=== PATIENT | female | born 1950 | race Caucasian/White ===

== ENCOUNTER 2016-10-18 08:47 | Inpatient (IN) | payer OTHER ==
[2016-09-23 11:37] VITALS: BMI 39.0
--- NOTE | 2016-09-23 12:08 | PAT Medication Instructions ---
Service Date Sep 23, 2016. Current Home Medication List Aspirin (Aspirin Ec), 81 MG PO QAM Calcium Carbonate-Vitamin D (Calcium + D), 1 TAB PO QAM Celecoxib (CeleBREX), 200 MG PO QAM Cholecalciferol (Vitamin D3), 5,000 UNITS PO QAM Esomeprazole Magnesium (Nexium), 40 MG PO QAM Oxybutynin Chloride (Ditropan), 5 MG PO QAM Pravastatin (Pravachol ), 40 MG PO QAM Tramadol (Ultram), 50-100 MG PO BID [Lisinopril Hctz], 1 TAB PO QAM Medication Instructions For Your Scheduled Surgery - Check with surgeon for instructions: Celecoxib (CeleBREX), 200 MG PO QAM - Hold the following medications the morning of surgery: [Lisinopril Hctz], 1 TAB PO QAM Oxybutynin Chloride (Ditropan), 5 MG PO QAM Cholecalciferol (Vitamin D3), 5,000 UNITS PO QAM Calcium Carbonate-Vitamin D (Calcium + D), 1 TAB PO QAM - Take the following medications the morning of surgery with a sip of water: Pravastatin (Pravachol ), 40 MG PO QAM Tramadol (Ultram), 50-100 MG PO BID (okay to continue up to 4 hours prior to surgery if needed) Esomeprazole Magnesium (Nexium), 40 MG PO QAM Aspirin (Aspirin Ec), 81 MG PO QAM - Take the following medications as scheduled the night before surgery: Tramadol (Ultram), 50-100 MG PO BID If you have any questions please call us at [phone] or [phone] or [phone]
--- NOTE | 2016-09-23 12:55 | DIAGNOSTIC IMAGING REPORT ---
CHEST PREADMISSION(PA/LAT) CLINICAL HISTORY: 65 years-old Female presenting with preoperative assessment. TECHNIQUE: PA and lateral views of the chest were obtained. COMPARISON: None. FINDINGS: Cardiomediastinal silhouette normal. Lungs and pleural spaces clear. Osseous structures normal. Surgical clips noted in the epigastrium. IMPRESSION: 1. No acute cardiopulmonary disease. Electronically signed by: Kiran Dominguez M.D. 09/23/2016 12:54 PM Dictated Date/Time: 09/23/2016 12:54 PM
[2016-09-23 12:57] LABS: BASO % 0.7 %; BASO ABS # 0.04 K/uL (0-0.2); COMPLETE YES; IG% 0.2 %; LYMPH % 32.7 %; MEAN CELL VOLUME 84.1 fL (80-100); MEAN CORPUSCULAR HEMOGLOBIN 28.3 pg (25-34); MEAN CORPUSCULAR HGB CONC 33.7 g/dl (32-36); MEAN PLATELET VOLUME 10.3 fL (7.4-10.4); MONO % 7.4 %; PLATELET COUNT 197 K/uL (130-400); RED BLOOD COUNT 4.52 M/uL (4.2-5.4); WHITE BLOOD COUNT 5.81 K/uL (4.8-10.8)
[2016-09-23 12:58] LABS: URINE APPEARANCE CLEAR (CLEAR); URINE BILIRUBIN NEG (NEG); URINE COLOR YELLOW; URINE NITRITE NEG (NEG); URINE SPECIFIC GRAVITY 1.015 (1.000-1.030); UROBILINOGEN NEG (NEG)
[2016-09-23 13:05] LABS: PARTIAL THROMBOPLASTIN RATIO 1.3; PROTHROMBIN TIME (PATIENT) 10.4 SECONDS (9.0-12.0)
[2016-09-23 13:08] LABS: MANUAL MICROSCOPIC REQUIRED? NO; REVIEW REQ? NO
[2016-09-23 13:24] LABS: ESTIMATED AVERAGE GLUCOSE 126 mg/dl; HA1C FLAG Normal (Normal)
[2016-09-23 14:34] LABS: BUN/CREATININE RATIO 19.9 (10-20); CALCIUM 8.9 mg/dl (8.5-10.1); CREATININE 0.95 mg/dl (0.60-1.20); POTASSIUM 3.7 mmol/L (3.5-5.1)
--- NOTE | 2016-10-16 21:58 | HISTORY & PHYSICAL EXAMINATION ---
DATE OF ADMISSION: 10/18/2016 SUBJECTIVE CHIEF COMPLAINT: Right knee pain. HISTORY OF PRESENT ILLNESS: The patient is a 65-year-old female that comes to the office complaining of right knee pain. She states that the pain occurs constantly and is described as aching, throbbing and sometimes sharp. The pain affects her activities of daily living. She has tried cortisone injections, nonsteroidal anti-inflammatories and physical therapy with no relief. She would like to proceed with a right total knee arthroplasty. PAST MEDICAL HISTORY: Significant for shortness of breath walking up and down hills, rheumatoid arthritis and GERD. PAST SURGICAL HISTORY: Hysterectomy, appendectomy, tonsillectomy, and cholecystectomy. SOCIAL HISTORY: She denies alcohol use. She smokes a pack a day for the last 40 years. She denies IV or illegal drug use. She lives in a 2-aly house. She is currently retired. FAMILY HISTORY: Mom and dad had a history of coronary artery disease. ALLERGIES: She has no known drug allergies. MEDICATIONS: Tramadol 50 mg 1 tablet as needed for pain, lisinopril/hydrochlorothiazide 10/12.5 mg 1 tablet daily, esomeprazole 20 mg 2 capsules daily, Ditropan 5 mg 1 tablet daily, Celebrex 200 mg 1 capsule daily, pravastatin 40 mg 1 tablet daily, Caltrate 600 1 tablet daily, vitamin D3 5000 units 1 capsule daily, and aspirin 81 mg 1 tablet daily. REVIEW OF SYSTEMS: She denies headaches, fevers, chills, double vision, blurry vision, sore throat, cough, chest pain, nausea, vomiting, diarrhea, constipation, numbness or tingling, tired, urinary difficulties, thoughts to harm herself or harm others or depression. She is positive for joint pain, joint stiffness of the right knee. OBJECTIVE: GENERAL APPEARANCE: The patient is a 65-year-old female sitting in no acute distress. She is well dressed, well nourished. She is awake, alert and oriented x3. VITAL SIGNS: She is 5 feet 5 inches tall, 237 pounds, blood pressure 98/58. HEENT: Normocephalic, atraumatic. Extraocular movements are intact. Mucosa was moist. No septal deviation. NECK: Supple, no lymphadenopathy, no JVD, no thyromegaly. HEART: Systolic murmur is appreciated in the aortic position. LUNGS: Clear to auscultation; however, they are distant ABDOMEN: Soft, nontender, nondistended. Normal bowel sounds. No hepatosplenomegaly. EXTREMITIES: Paying particular attention to the right knee, she is able to actively extend to 0 degrees, flex to 90 degrees. She has medial joint line tenderness. Ligaments are intact. NEUROLOGIC: Cranial nerves II-XII are intact. Pulses were compared bilaterally and were equal. IMPRESSION: Primary osteoarthritis of the right knee. PLAN: The patient is scheduled for a right total knee arthroplasty. She has tried cortisone injections, nonsteroidal anti-inflammatories and physical therapy with no relief. This affects her activities of daily living and she would like to proceed with a right total knee arthroplasty. Risks and benefits were discussed with the patient and included but not limited to infection, DVT, pain, stiffness, need for revision surgery, damage to blood vessels, damage to nerves, PE, and anesthesia risks were all discussed with the patient and she wishes to proceed. All questions were answered to her satisfaction. DVT prophylaxis will be aspirin 81 mg b.i.d. for 30 days. DISCHARGE: She would like to go home with home health. SYL
[2016-10-18] VITALS (8 sets, daily range): BP systolic 93–138; BP diastolic 55–74; PULSE 62–87; TEMP 36.5–36.8; O2SAT 92–100; Ht 165.1 cm; Wt 107.5 kg
[~2016-10-18] VITALS: Ht 165.1 cm; Wt 107.5 kg
[2016-10-18] MEDS: TRANEXAMIC ACID INJ 1,000 MG in SODIUM CHLORIDE 0.9% 100ML 100 ML IV SCH ×2 (06:30→10:14)
[~2016-10-18 08:47] MED LIST: ACETAMINOPHEN 500 MG TAB PO SCH; ASPI81TA28 PO; ATROPINE SULFATE 0.1 MG/ML 5ML SYR IV PRN; BUPIVACAINE 0.25% 30 ML VIAL ONE; BUPIVACAINE 0.5 % 5 MG/1 ML PF 10ML VIAL ONE; CALC600T9 PO; CEFAZOLIN 2000 MG/60 ML D5W 60 ML IV SCH; CHOL1000 PO; CLB/200 PO; CeleBREX 200 MG CAP PO SCH; DEXAMETHASONE 4 MG TAB PO SCH; EpHEDrine SULFATE INJ 50 MG/ML AMP IV PRN; FAMOTIDINE 20 MG TAB PO SCH; FENTANYL CITRATE INJ 50 MCG/1 ML 2 ML VIAL IV PRN; GABAPENTIN 300 MG CAP PO SCH; LACTATED RINGER'S 1000ML 1,000 ML IV SCH; LACTATED RINGER'S 1000ML 500 ML IV ONE; LACTATED RINGER'S 1000ML IV SCH; LISINOPRIL HCTZ PO; METOCLOPRAMIDE HCL 10 MG TAB PO SCH; NXM/40 PO; ONDANSETRON INJ 2 MG/ML 2 ML VIAL IV PRN; OXYB5TAB74 PO; PRAV20TA PO; ROPIVACAINE 5MG/ML 30 ML 150 MG, BUPIVACAINE/EPINEPHR 0.5% MPF 30 ML, KETOROLAC TROMETH... INFIL SCH; TRAM-10 PO; TRANEXAMIC ACID INJ 1,000 MG in SODIUM CHLORIDE 0.9% 100ML 100 ML IV SCH
[2016-10-18] MEDS ORDERED: MIDAZOLAM HCL 1 MG/ML 2ML VIAL ONE ×2 (09:04)
--- NOTE | 2016-10-18 09:18 | History & Physical Bridge Note ---
H&P Re-Evaluation Bridge Note: I have examined the patient, reviewed the History & Physical and in the interval since the performance of the History & Physical I have noted the following changes of clinical significance: No changes noted
[2016-10-18] MEDS ORDERED: POVIDONE-IODINE OP SOLN 30 ML BTL ONE (10:16)
[2016-10-18] MEDS ORDERED: ORTHO JOINT ANESTHETIC ONE (10:16)
[2016-10-18] MEDS ORDERED: BACITRACIN 50000 UNIT VIAL ONE (10:17)
[2016-10-18] MEDS ORDERED: PHENYLEPHRINE 100MCG/ML 5ML SYR ONE (11:36)
[2016-10-18] MEDS ORDERED: EpHEDrine SULFATE 50MG/5ML SYR ONE (11:36)
[2016-10-18] MEDS ORDERED: FENTANYL CITRATE INJ 50 MCG/1 ML 2 ML VIAL ONE (12:02)
--- NOTE | 2016-10-18 12:15 | [facility] Operative Report ---
Operative Report Operative Date Oct 18, 2016. Pre-Operative Diagnosis Primary osteoarthritis of the right knee. Post-Operative Diagnosis same Procedure(s) Performed Right total knee arthroplasty Surgeon Dr Winters Superintendent Drilling And Production Surgeon(s) Sai REESE Estimated Blood Loss 75 cc Findings As above Specimens A. Right knee- Bone and tissue Drains none Anesthesia spinal plus adductor canal block Complication(s) None Disposition Recovery Room / PACU Indications 65-year-old female long-standing degenerative joint disease right knee. She is [id number]. She still conservative measures including injection and anti- inflammatories and rehabilitation. She wished to proceed with right total knee arthroplasty. Description of Procedure Risks benefits and alternatives of surgery including but not limited to infection, DVT , pain, stiffness, need for revision surgery , damage to blood vessels , damage to nerves or risks of anesthesia were discussed with the patient and they wished to proceed. The patient was identified in the laterality was confirmed and marked. They received a preoperative antibiotic is also a spinal anesthetic and a adductor canal block. A well-padded tourniquet was applied and then the limb was prepped and draped in standard manner with ChloraPrep. The tourniquet was only used during the cementing portion of the procedure. I made a standard anterior incision. I sharply incised the skin then utilized Bovie electrocautery as well as the aqua mantis to achieve hemostasis. I made a medial parapatellar arthrotomy immobilized the patella laterally. I then excised the anterior horns of the medial and lateral meniscus as well as the infrapatellar fat pad. I elevated a portion of the MCL off of the tibia. I then pinned into place a patient-matched distal femoral cutting guide and made my distal femoral resection. I then pinned into place a size the 5 in 1 cutting guide. I made my anterior, posterior and chamfer cuts. I then excised the cruciates and the remaining portions of the menisci. I then pinned into place a patient- matched tibial cutting guide and made my tibial resection. I then pinned into place the patient matched tibial cutting guide and used a alignment sujatha to confirm rotation. I then cut for the post. Utilizing a lamina optimization consultant and I then removed posterior osteophytes off the femur. I then placed a trial femur into position and cut for the trochlear component. I then sequentially trialed the polyethylene until there was good soft tissue balancing and range of motion. I then prepared the patella with a freehand cut utilizing sagittal saw. I sized and drilled for the patella. There was good tracking to the patella no lateral release was needed. All the trial components were removed. The deep tissues were anesthetized with and ortho mix solution. Then with Simplex HV with gentamicin cement I cemented my definitive components. Definitive components, Fitzpatrick and Nephew Dominguez 2: Femur 5 Tibia 3 Poly 10 Patella 29 oval A betadine soak was performed. The arthrotomy was closed with interrupted #1 Vicryl suture subcutaneous tissue was closed with interrupted 2-0 Vicryl suture. The skin was closed with nic. A Prevena wound VAC was placed. A sterile dressing was applied. All needle and sponge counts were correct at the end of the procedure patient was transferred to the PACU in stable condition without apparent complication. The PA-C was necessary for assistance with procedure for assistance in positioning, prepping, draping, retraction and closure. I attest to the content of the Intraoperative Record and any orders documented therein. Any exceptions are noted below.
[2016-10-18] MEDS ORDERED: PROPOFOL IV EMULSION 10 MG/ML 20 ML VIAL IV ONE (12:59)
[2016-10-18] MEDS ORDERED: MoRPHine SULFATE 2 MG/ML CARP IV PRN (13:15)
[2016-10-18] MEDS ORDERED: BISACODYL 10 MG SUPP PR PRN (13:15)
[2016-10-18] MEDS ORDERED: SOD PHOSPHATE/SOD BIPHOSPHATE ENEMA 132 ML BTL PR PRN (13:15)
[2016-10-18] MEDS ORDERED: ONDANSETRON INJ 2 MG/ML 2 ML VIAL IV PRN (13:15)
[2016-10-18] MEDS ORDERED: ZOLPIDEM TARTRATE 5 MG TAB PO PRN (13:15)
[2016-10-18] MEDS ORDERED: MAGNESIUM HYDROXIDE SUSP 30 ML UDC PO PRN (13:15)
--- NOTE | 2016-10-18 13:30 | Anesthesiology Progress Note ---
Anesthesia Post Op Note Date & Time Oct 18, 2016 at 13:30 Vital Signs Pain Intensity: 0 Vital Signs Past 12 Hours Date Time Temp Pulse Resp B/P (MAP) Pulse Ox O2 Delivery O2 Flow Rate FiO2 10/18/16 13:20 74 16 103/53 100 Nasal Cannula 2 10/18/16 13:10 78 16 100/53 100 Nasal Cannula 2 10/18/16 13:02 36.4 87 16 106/64 100 Nasal Cannula 2 10/18/16 09:09 36.5 73 20 138/74 99 Room Air Notes Mental Status: alert / awake / arousable, participated in evaluation Pt Amnestic to Procedure: Yes Nausea / Vomiting: adequately controlled Pain: adequately controlled Airway Patency, RR, SpO2: stable & adequate BP & HR: stable & adequate Hydration State: stable & adequate Neuraxial Anesthesia: was administered, sensory block is resolving Anesthetic Complications: no major complications apparent
--- NOTE | 2016-10-18 13:53 | DIAGNOSTIC IMAGING REPORT ---
RIGHT KNEE 2 VIEWS History: Right total knee arthroplasty. Degenerative arthritis. Postop. FINDINGS: The patient is status post a right total knee arthroplasty. The hardware is intact. No fracture or dislocation. Skin nic are in place. IMPRESSION: Right total knee arthroplasty. No evidence for hardware complication. Electronically signed by: Justin Silverman M.D. 10/18/2016 1:52 PM Dictated Date/Time: 10/18/2016 1:52 PM
[2016-10-18] MEDS: D5W AND 1/2NSS + 20MEQ KCL 1,000 ML IV SCH ×2 (16:10→23:35)
[2016-10-18] MEDS: FERROUS GLUCONATE 324 MG TAB PO SCH (18:32)
[2016-10-18] MEDS: CEFAZOLIN IV 2,000 MG in DEXTROSE 5% 50ML 50 ML IV SCH (18:32)
[2016-10-18] MEDS: DOCUSATE SODIUM 100 MG CAP PO SCH (21:00)
[2016-10-18] MEDS: SENNA 8.6 MG TAB PO SCH (21:00)
[2016-10-18] MEDS: OXYCODONE HCL 10 MG TABCR (OXYCONTIN) PO SCH (21:30)
[2016-10-18] MEDS: CeleBREX 200 MG CAP PO SCH (21:31)
[2016-10-18] MEDS: ACETAMINOPHEN 500 MG TAB PO SCH (21:31)
[2016-10-18] MEDS: ASPIRIN 81 MG ECTAB PO SCH (21:31)
[2016-10-19] MEDS: CEFAZOLIN IV 2,000 MG in DEXTROSE 5% 50ML 50 ML IV SCH (01:37)
[2016-10-19 03:19] VITALS: BP 90/56; PULSE 65; TEMP 36.7; O2SAT 97
[2016-10-19] MEDS: ACETAMINOPHEN 500 MG TAB PO SCH ×3 (05:20→22:24)
[2016-10-19 05:37] LABS: HEMATOCRIT 35.9 % (37-47); MEAN CELL VOLUME 83.9 fL (80-100); MEAN CORPUSCULAR HEMOGLOBIN 27.6 pg (25-34); MEAN CORPUSCULAR HGB CONC 32.9 g/dl (32-36); MEAN PLATELET VOLUME 10.4 fL (7.4-10.4); PLATELET COUNT 208 K/uL (130-400); RED BLOOD COUNT 4.28 M/uL (4.2-5.4); WHITE BLOOD COUNT 16.32 K/uL (4.8-10.8)
[2016-10-19 05:45] LABS: PROTHROMBIN TIME (PATIENT) 10.2 SECONDS (9.0-12.0)
[2016-10-19 06:08] LABS: CALCIUM 8.8 mg/dl (8.5-10.1); CREATININE 1.1 mg/dl (0.60-1.20); POTASSIUM 4.2 mmol/L (3.5-5.1)
--- NOTE | 2016-10-19 07:51 | Orthopedic Progress Note ---
Orthopedic Progress Note Date of Service Oct 19, 2016. Subjective Post OP Day: 1 Reports: feeling well, Denies: complaints Objective calves soft nontender, N/V intact, dressing C/D/I, A&O x3, toes mobile Date Time Temp Pulse Resp B/P (MAP) Pulse Ox O2 Delivery O2 Flow Rate FiO2 10/19/16 03:19 36.7 65 16 90/56 (67) 97 Room Air 10/18/16 23:45 Room Air 10/18/16 23:20 36.5 62 16 93/65 (74) 92 Room Air 10/18/16 16:57 36.8 69 18 98 Nasal Cannula 2.0 10/18/16 16:30 98 Nasal Cannula 2.0 10/18/16 16:15 36.7 76 18 107/70 (82) 98 2.0 10/18/16 15:25 87 18 110/55 (73) 10/18/16 14:30 73 18 105/70 (82) 10/18/16 14:00 36.6 73 16 121/72 (88) 100 Nasal Cannula 2.0 10/18/16 14:00 100 Nasal Cannula 2.0 10/18/16 14:00 100 Nasal Cannula 2.0 10/18/16 13:30 36.3 80 16 114/65 100 Nasal Cannula 2 10/18/16 13:20 74 16 103/53 100 Nasal Cannula 2 10/18/16 13:10 78 16 100/53 100 Nasal Cannula 2 10/18/16 13:02 36.4 87 16 106/64 100 Nasal Cannula 2 10/18/16 09:09 36.5 73 20 138/74 99 Room Air Laboratory Results 24 Hours: Test 10/19/16 05:23 Hematocrit 35.9 % Hemoglobin 11.8 g/dL Prothromb Time International Ratio 1.0 Prothrombin Time 10.2 SECONDS Assessment & Plan Assessment: POD 1 s/p Right TKA Plan: PT/OT Follow drainage from Prevena Unsure of what she would like to do for out of hospital PT. Will decide later today after PT Inhouse Planning Pain Management: Oxycontin, PO Tylenol, Oxy IR DVT Prophylaxis: TEDs, SCDs, ASA Discharge Planning Discharge Planning: uncertain Pain Management: Oxycontin, PO Tylenol, Oxy IR DVT Prophylaxis: TEDs, ASA Therapy: Physical Therapy
[2016-10-19 08:04] VITALS: BP 104/63; PULSE 65; TEMP 36.7; O2SAT 98
[2016-10-19] MEDS: DOCUSATE SODIUM 100 MG CAP PO SCH ×2 (08:36→22:22)
[2016-10-19] MEDS: MULTIVITAMIN TAB PO SCH (08:37)
[2016-10-19] MEDS: ASPIRIN 81 MG ECTAB PO SCH ×2 (08:37→22:22)
[2016-10-19] MEDS: LISINOPRIL/HCTZ 10/12.5MG TAB PO SCH (08:37)
[2016-10-19] MEDS: OXYBUTYNIN CHLORIDE 5 MG TAB PO SCH (08:37)
[2016-10-19] MEDS: CeleBREX 200 MG CAP PO SCH ×2 (08:37→22:22)
[2016-10-19] MEDS: PRAVASTATIN SOD 20 MG TAB PO SCH (08:38)
[2016-10-19] MEDS: PANTOprazole SOD 40 MG TAB PO SCH (08:38)
[2016-10-19] MEDS: FERROUS GLUCONATE 324 MG TAB PO SCH ×3 (08:38→19:29)
[2016-10-19] MEDS: CALCIUM 600MG + VIT D 400 IU TAB PO SCH (08:38)
--- NOTE | 2016-10-19 08:40 | Anesthesiology Progress Note ---
Anesthesia Post Op Note Date & Time Oct 19, 2016 at 08:40 Vital Signs Vital Signs Past 12 Hours Date Time Temp Pulse Resp B/P (MAP) Pulse Ox O2 Delivery O2 Flow Rate FiO2 10/19/16 08:04 36.7 65 18 104/63 (77) 98 Room Air 10/19/16 07:15 Room Air 10/19/16 03:19 36.7 65 16 90/56 (67) 97 Room Air 10/18/16 23:45 Room Air 10/18/16 23:20 36.5 62 16 93/65 (74) 92 Room Air Notes Mental Status: alert / awake / arousable, participated in evaluation Pt Amnestic to Procedure: Yes Nausea / Vomiting: adequately controlled Pain: adequately controlled Airway Patency, RR, SpO2: stable & adequate BP & HR: stable & adequate Hydration State: stable & adequate Neuraxial Anesthesia: was administered, sensory block resolved Anesthetic Complications: no major complications apparent
[2016-10-19] MEDS: OXYCODONE HCL IR 5 MG TAB (IMMEDIATE RELEASE) PO PRN ×3 (08:44→23:32)
[2016-10-19] MEDS: OXYCODONE HCL 10 MG TABCR (OXYCONTIN) PO SCH ×2 (08:44→22:18)
[2016-10-19] MEDS ORDERED: PANTOprazole SOD 40 MG TAB PO SCH (09:00)
[2016-10-19] MEDS: D5W AND 1/2NSS + 20MEQ KCL 1,000 ML IV SCH (09:36)
[2016-10-19 15:46] VITALS: BP 94/52; PULSE 85; TEMP 37; O2SAT 94
[2016-10-19] MEDS: SENNA 8.6 MG TAB PO SCH (21:00)
[2016-10-19 23:22] VITALS: BP 143/84; PULSE 77; TEMP 37; O2SAT 93
[2016-10-19] MEDS: ALUMINUM/MAGNESIUM/SIMETH (MAALOX MAX) 30 ML UDC PO PRN (23:33)
[2016-10-20] MEDS: ACETAMINOPHEN 500 MG TAB PO SCH ×2 (05:47→14:00)
[2016-10-20 06:18] VITALS: BP 108/58; PULSE 76; TEMP 36.9; O2SAT 93
[2016-10-20] MEDS: ALUMINUM/MAGNESIUM/SIMETH (MAALOX MAX) 30 ML UDC PO PRN (07:26)
[2016-10-20] MEDS: OXYCODONE HCL 10 MG TABCR (OXYCONTIN) PO SCH (07:27)
[2016-10-20] MEDS: OXYCODONE HCL IR 5 MG TAB (IMMEDIATE RELEASE) PO PRN ×2 (07:28→14:37)
[2016-10-20] MEDS: OXYBUTYNIN CHLORIDE 5 MG TAB PO SCH (07:28)
[2016-10-20] MEDS: CALCIUM 600MG + VIT D 400 IU TAB PO SCH (07:28)
[2016-10-20] MEDS: FERROUS GLUCONATE 324 MG TAB PO SCH ×2 (07:28→12:30)
[2016-10-20] MEDS: PRAVASTATIN SOD 20 MG TAB PO SCH (07:29)
[2016-10-20] MEDS: MULTIVITAMIN TAB PO SCH (07:29)
[2016-10-20] MEDS: PANTOprazole SOD 40 MG TAB PO SCH (07:29)
[2016-10-20] MEDS: LISINOPRIL/HCTZ 10/12.5MG TAB PO SCH (07:29)
--- NOTE | 2016-10-20 07:34 | Orthopedic Progress Note ---
Orthopedic Progress Note Date of Service Oct 20, 2016. Subjective Post OP Day: 2 Reports: feeling well, pain controlled w PO medications, Denies: complaints, chest pain, SOB, nausea / vomiting, light headedness, calf pain Objective calves soft nontender, N/V intact, capillary refill less than 2 sec., A&O x3, toes mobile Patient had some drainage on her bandage. This was changed today and a new dry dressing was applied. Date Time Temp Pulse Resp B/P (MAP) Pulse Ox O2 Delivery O2 Flow Rate FiO2 10/20/16 06:18 36.9 76 16 108/58 (75) 93 Room Air 10/19/16 23:45 Room Air 10/19/16 23:22 37.0 77 17 143/84 (103) 93 Room Air 10/19/16 17:00 Room Air 10/19/16 15:46 37.0 85 18 94/52 (66) 94 Room Air 10/19/16 08:04 36.7 65 18 104/63 (77) 98 Room Air Assessment & Plan Assessment: POD 2 s/p Right TKA Plan: PT/OT Prevena was discontinued. Dry dressing applied. apply Silverlon before discharge Discharge - OPPT Inhouse Planning Pain Management: Oxycontin, PO Tylenol, Oxy IR DVT Prophylaxis: TEDs, SCDs, ASA Discharge Planning Discharge Planning: uncertain Pain Management: Oxycontin, PO Tylenol, Oxy IR DVT Prophylaxis: TEDs, ASA Therapy: Physical Therapy
--- NOTE | 2016-10-20 08:09 | Discharge Instructions ---
Discharge Instructions Date of Service Oct 20, 2016. Admission Reason for Admission: Right Knee Degenerative Joint Disease Discharge Discharge Diagnosis / Problem: S/P Right TKA Discharge Goals Goal(s): Decrease discomfort, Improve function Activity Recommendations Activity Limitations: per Instructions/Follow-up section . Instructions / Follow-Up Instructions / Follow-Up ACTIVITY RECOMMENDATIONS: SELF CARE INSTRUCTIONS AFTER TOTAL KNEE REPLACEMENT A. You may need to continue a physical therapy program after discharge from the hospital. There are several options available to you. Your doctor will assist you in selecting the best one for you. 1. An out-patient facility 2 to 3 times a week for therapy or home therapy. 2. Continue working on all exercises taught to you in the hospital. Your goals should be to increase bending of your knee to 90 degrees and beyond and to fully straighten your knee. B. You may progress at your own pace from walking with a walker or crutches to a cane; then to no assistive devices. C. Make walking a part of your daily routine. Be up as much as comfortable with rest periods throughout the day. Rest with leg elevation is very important. Use the ice wrap frequently for the first 3-4 weeks. D. There are no restrictions on activities. You may ride in a car, shop, participate in window systems administrator and all social activities. E. Wear the long elastic stockings (RENA hose) 20 hours a day for 2 weeks after surgery. They can be removed several times a day for laundering and for a bath. F. You may shower, no tub baths until cleared by your doctor. SPECIAL CARE INSTRUCTIONS: VERY IMPORTANT TO READ AND REVIEW A. There are a few signs you need to watch for after you are home. Call [facility] if you notice any of the followin. Increased severe knee pain. Some pain is expected especially when you exercise. 2. Increased swelling in your leg or knee; pain or swelling of the calf muscle in either lower leg. 3. Any fluid drainage from the incision. 4. Shortness of breath or chest pain. B. Please call [facility] at if you have any concerns or questions about your operation or recovery. The doctor or his nurse will return your call promptly. C. You must take antibiotics before dental work, bladder, bowel or other surgery. Your doctor will provide you with a permanent care to carry describing this precaution. IMPORTANT: * REMEMBER TO TAKE ASPIRIN, 81 MG, TWICE DAILY FOR 4 WEEKS UNLESS OTHERWISE DIRECTED. THIS IS YOUR BLOOD THINNER. * CALL IF INCREASED PAIN, REDNESS, DRAINAGE OR FEVER GREATER THAT 101. * WEAR RENA HOSE 20 HOURS PER DAY FOR 2 WEEKS. * YOU MAY HAVE A LARGE BAND-AID LIKE DRESSING (SILVERON). THIS WILL REMAIN ON YOUR INCISION FOR 7 DAYS, THEN CAN BE REMOVED. THEN APPLIED DRY DAILY DRESSING CHANGES. IF INCISION IS LEAKING THROUGH DRESSING, CALL THE OFFICE . FOLLOW UP VISIT: If appointment is not already scheduled: Please call [facility] to make a follow-up appointment for 2 weeks after your surgery at . Current Hospital Diet Patient's current hospital diet: Regular Diet Discharge Diet Recommended Diet: Regular Diet Procedures Procedures Performed: Right total knee arthroplasty Pending Studies Studies pending at discharge: no Laboratory Results Hemoglobin A1c Test 09/23/16 12:16 Range/Units Estimated Average Glucose 126 mg/dl Hemoglobin A1c 6.0 H 4.5-5.6 % Medical Emergencies . Who to Call and When: Medical Emergencies: If at any time you feel your situation is an emergency, please call 911 immediately. . Non-Emergent Contact Non-Emergency issues call your: Surgeon Call Non-Emergent contact if: your pain is worsening, wound has increased drainage, wound has increased redness . "Provider Documentation" section prepared by Sai Chance. . VTE Core Measure Inpt VTE Proph given/why not?: Other Anticoagulation (ASA) [place] Drug Monitoring Program Search Results: patient reviewed within database, no issues identified
[2016-10-20] MEDS: CeleBREX 200 MG CAP PO SCH (08:51)
[2016-10-20] MEDS: DOCUSATE SODIUM 100 MG CAP PO SCH (08:51)
[2016-10-20] MEDS: ASPIRIN 81 MG ECTAB PO SCH (08:52)
[2016-10-20] MEDS ORDERED: OXYSR10 PO (13:11)
[2016-10-20] MEDS ORDERED: ACET-24 PO (13:11)
[2016-10-20] MEDS ORDERED: RXC5 PO (13:11)
[2016-10-20] MEDS ORDERED: ASPEC81 PO (13:11)
[2016-10-20] MEDS ORDERED: CLB200 PO (13:11)
[2016-10-20 14:19] VITALS: BP 108/58; PULSE 76; TEMP 36.9; O2SAT 93
--- NOTE | 2016-10-21 21:46 | Discharge Summary ---
Orthopedic Discharge Summary Admission Date/Reason Oct 18, 2016 at 09:15 Right Knee Degenerative Joint Disease. Discharge Date/Disposition Oct 20, 2016 Home (home with OPPT) Diagnosis Principal Diagnosis: S/P right Total knee arthroplasty Medication Reconciliation as per discharge instructions Admission Physical Exam As per Admitting History & Physical. Hospital Course POD #1 prevena dressing was beeping due to it being full. This dressing was removed. A dry dressing was applied. This was then later changed. Her plan was to go home with OPPT. POD #2 she was doing well. Her dry dressing has some blood stains. This dressing was changed. She went home with a clean dry dressing. She will go to OPPT. Discharge Instructions Please refer to the electronic Patient Visit Report (Discharge Instructions) for additional information.
== END 2016-10-20 15:12 | disposition home or self-care (01) | DRG 470 ==
LOC: C.ACU 08:47 → C.3E 09:15 → ENRESERV 13:31
PROVIDERS: ADMIT Orthopaedic Surgery; ATTEND Orthopaedic Surgery
PROC: 0SRC0J9 Replacement of Right Knee Joint with Synthetic Substitute, Cemented, Open Approach (ICD-10-PCS; principal; 2016-10-18 10:45)
DX: M17.11 Unilateral primary osteoarthritis, right knee (principal); I10 Essential (primary) hypertension; E78.5 Hyperlipidemia, unspecified; K21.9 Gastro-esophageal reflux disease without esophagitis; E88.81 Metabolic syndrome and other insulin resistance; M06.9 Rheumatoid arthritis, unspecified; F17.210 Nicotine dependence, cigarettes, uncomplicated; E66.9 Obesity, unspecified; Z68.39 Body mass index [BMI] 39.0-39.9, adult; Z79.82 Long term (current) use of aspirin; Z79.1 Long term (current) use of non-steroidal anti-inflammatories (NSAID); Z79.891 Long term (current) use of opiate analgesic; Z79.899 Other long term (current) drug therapy

== ENCOUNTER 2016-11-06 03:40 | Emergency (ER) | payer OTHER ==
[~2016-11-06] VITALS: Ht 167.6 cm; Wt 106.5 kg
[~2016-11-06 03:40] MED LIST changes: +ACET-24 PO; -ACETAMINOPHEN 500 MG TAB PO SCH; +ASPEC81 PO; -ASPI81TA28 PO; -ATROPINE SULFATE 0.1 MG/ML 5ML SYR IV PRN; -BUPIVACAINE 0.25% 30 ML VIAL ONE; -BUPIVACAINE 0.5 % 5 MG/1 ML PF 10ML VIAL ONE; -CEFAZOLIN 2000 MG/60 ML D5W 60 ML IV SCH; -CLB/200 PO; +CLB200 PO; -CeleBREX 200 MG CAP PO SCH; -DEXAMETHASONE 4 MG TAB PO SCH; -EpHEDrine SULFATE INJ 50 MG/ML AMP IV PRN; -FAMOTIDINE 20 MG TAB PO SCH; -FENTANYL CITRATE INJ 50 MCG/1 ML 2 ML VIAL IV PRN; -GABAPENTIN 300 MG CAP PO SCH; -LACTATED RINGER'S 1000ML 1,000 ML IV SCH; -LACTATED RINGER'S 1000ML 500 ML IV ONE; -LACTATED RINGER'S 1000ML IV SCH; -METOCLOPRAMIDE HCL 10 MG TAB PO SCH; -ONDANSETRON INJ 2 MG/ML 2 ML VIAL IV PRN; +OXYSR10 PO; -ROPIVACAINE 5MG/ML 30 ML 150 MG, BUPIVACAINE/EPINEPHR 0.5% MPF 30 ML, KETOROLAC TROMETH... INFIL SCH; +RXC5 PO; -TRAM-10 PO; -TRANEXAMIC ACID INJ 1,000 MG in SODIUM CHLORIDE 0.9% 100ML 100 ML IV SCH
[2016-11-06 03:46] VITALS: TEMP 36.8; Ht 167.6 cm; Wt 106.5 kg
[2016-11-06] MEDS ORDERED: ASPI81TA28 PO (03:52)
[2016-11-06] MEDS ORDERED: CLB/200 PO (03:57)
[2016-11-06] MEDS ORDERED: HYDROmorphone INJ 1 MG/ML SYR IV STA ×3 (04:05→05:30)
--- NOTE | 2016-11-06 04:10 | EMERGENCY ROOM VISIT NOTE ---
History Report prepared by Naveen: Baltazar Boyer Under the Supervision of: Dr. Everardo Holcomb M.D. First contact with patient: 03:59 Chief Complaint: KNEEPAIN Stated Complaint: KNEE PAIN S/P KNEE REPLACEMENT 10/17 History of Present Illness The patient is a 65 year old female status-post a right knee replacement who presents to the Emergency Room with complaints of worsening right knee pain that started around 4 hours ago. She says that she had the knee replacement by Dr. Winters on October 17, and had been taking OxyContin and Oxycodone as prescribed, but ran out of them 2 days ago. She states that she woke up around 4 hours ago with terrible right knee pain. The patient notes that she had been doing well since the surgery until overnight. She denies any recent falls or injuries, or any fevers. Source of History: patient Onset: 4 hours ago Position: knee (right) Symptom Intensity: terrible Quality: other (pain) Timing: worsening Associated Symptoms: No fevers Note: Associated symptoms: Denies recent falls or injuries. Review of Systems See HPI for pertinent positives & negatives. A total of 6 systems reviewed and were otherwise negative. Past Medical & Surgical Medical Problems: (1) Right knee DJD Family History FHx: heart disease Social History Smoking Status: Current Every Day Smoker Marital Status: Housing Status: lives with family Occupation Status: retired Current/Historical Medications Scheduled Acetaminophen (Sb Non-Aspirin Extra Stre), 1,000 MG PO Q8 Aspirin (Aspirin Ec), 81 MG PO DAILY Calcium Carbonate-Vitamin D (Calcium + D), 1 TAB PO QAM Celecoxib (CeleBREX), 200 MG PO BID Cholecalciferol (Vitamin D3), 5,000 UNITS PO QAM Esomeprazole Magnesium (Nexium), 40 MG PO QAM Oxybutynin Chloride (Ditropan), 5 MG PO QAM Pravastatin (Pravachol ), 40 MG PO QAM [Lisinopril Hctz], 1 TAB PO QAM Scheduled PRN Oxycodone Immediate Rel Tab (Roxicodone Ir), 1-2 TAB PO Q4H PRN for Severe Pain Allergies Coded Allergies: No Known Allergies (Verified , 10/18/16) Physical Exam Vital Signs Date Time Temp Pulse Resp B/P (MAP) Pulse Ox O2 Delivery O2 Flow Rate FiO2 11/06/16 06:47 121/81 11/06/16 06:45 99 14 97 11/06/16 06:15 96 17 96 11/06/16 06:10 95 15 95 11/06/16 06:01 135/66 11/06/16 05:55 95 17 97 11/06/16 05:40 96 15 98 11/06/16 05:31 132/59 11/06/16 05:25 94 16 95 11/06/16 05:10 98 16 92 11/06/16 05:01 146/58 11/06/16 04:55 97 13 92 11/06/16 04:40 89 20 99 11/06/16 04:31 127/47 11/06/16 04:25 94 25 100 11/06/16 04:10 96 23 99 11/06/16 04:01 119/89 11/06/16 03:47 134/68 11/06/16 03:46 36.8 96 26 134/68 99 Room Air Physical Exam GENERAL: Patient is uncomfortable appearing and in moderate distress. HEENT: No acute trauma, normocephalic atraumatic, mucous membranes moist, no nasal congestion, no scleral icterus. NECK: No stridor, no adenopathy, no meningismus, trachea is midline. LUNGS: No dyspnea. Clear to auscultation and equal bilaterally. No wheeze, no rhonchi. HEART: Regular rate and rhythm. No murmurs, rubs, gallops appreciated. EXTREMITIES: Well-healed incision scar on right knee. NEUROLOGIC: Alert and oriented, no acute motor or sensory deficits, no focal weakness, cranial nerves grossly intact. SKIN: No rash, no jaundice, no diaphoresis. Medical Decision & Procedures Medications Administered Medications (Trade) Dose Ordered Sig/Dasha Route Start Time Stop Time Status Last Admin Dose Admin Hydromorphone HCl (Dilaudid Inj) 1 mg NOW STAT IV 11/06/16 04:05 11/06/16 04:06 DC 11/06/16 04:24 1 MG Hydromorphone HCl (Dilaudid Inj) 1 mg NOW STAT IV 11/06/16 04:41 11/06/16 04:42 DC 11/06/16 04:46 1 MG Hydromorphone HCl (Dilaudid Inj) 1 mg NOW STAT IV 11/06/16 05:30 11/06/16 05:31 DC 11/06/16 05:38 1 MG Oxycodone HCl (Roxicodone Immediate Rel 5MG Home Pack) 1 homepack UD ONCE PO 11/06/16 06:45 11/06/16 06:46 DC 11/06/16 06:45 1 HOMEPACK ED Course 0401: The patient was evaluated in room B5. A complete history and physical exam was performed. 0405: Ordered Dilaudid Inj 1 mg IV. 0448: I reevaluated the patient and she is having more pain. She will get more Dilaudid. 0634: I reevaluated the patient and she is feeling much better. The patient verbally expressed understanding and agreement of the treatment plan. The patient will be discharged. 0645: Ordered Roxicodone Immediate Rel 5MG Home Pack 1 homepack PO. Medical Decision Differential: Cellulitis, Septic Joint, Hardware failure, Effusion, DVT, post- operative pain amongst other pathologies entertained. 65 yr old female with right knee pain s/p surgery and having run out of pain medication 24 hours ago. No increased swelling other than expected post op. no fevers, no erythma, no tachy. No evidence this is septic joint at this time. No falls, injuries, trauma, thus I see limited effect of imaging given she can ambulate to bathroom once feeling better. No calf swelling nor findings of dvt. N/V intact. Suspect this is pain secondary to out of meds. Slowly fixed with IV dilaudid here to point where feeling much better and able to ambulate. WIll restart oxy IR and will follow up with ortho as outpatien. Medication Reconcilliation Current Medication List: was personally reviewed by me Blood Pressure Screening Patient's blood pressure: Elevated blood pressure Blood pressure disposition: Elevated BP felt to be situational Impression Primary Impression: Post-operative pain Scribe Attestation The scribe's documentation has been prepared under my direction and personally reviewed by me in its entirety. I confirm that the note above accurately reflects all work, treatment, procedures, and medical decision making performed by me. Departure Information Dispostion Home / Self-Care Prescriptions Oxycodone Immediate Rel Tab (ROXICODONE IR) 5 Mg Tab 1-2 TAB PO Q4H Y for Severe Pain, #16 TAB Prov: Everardo Holcomb M.D. 11/06/16 Referrals Debi England M.D. (PCP) Patient Instructions My [facility] Additional Instructions You have received a narcotic pain medication prescription. These medications may cause drowsiness and should not be used with other sedative medications. Do not drive, drink alcohol, perform dangerous activities, nor make important decisions after taking these medications. FDC use or inappropriate use may lead to addiction. Rest and avoid exertion today with knee. Return if increased pain, swelling, rash, fevers, vomiting, passing out or other concerns. Follow up with your Orthopedic Physician in next 1 to 2 days.
[2016-11-06] MEDS ORDERED: OXYC1TAB3 PO (06:34)
[2016-11-06 06:45] VITALS: PULSE 99; O2SAT 97
[2016-11-06] MEDS ORDERED: OXYCODONE IR HOME PACK PO ONE (06:45)
[2016-11-06 06:47] VITALS: BP 121/81
== END 2016-11-06 06:53 | disposition home or self-care (01) ==
LOC: EDBD 03:40 → C.EDB 03:41
DX: G89.18 Other acute postprocedural pain (principal); Z96.651 Presence of right artificial knee joint; Z82.49 Family history of ischemic heart disease and other diseases of the circulatory system; F17.210 Nicotine dependence, cigarettes, uncomplicated; Z79.82 Long term (current) use of aspirin; Z79.899 Other long term (current) drug therapy

== ENCOUNTER 2016-11-07 14:20 | Inpatient (IN) | payer OTHER ==
[~2016-11-07] VITALS: Ht 166.4 cm; Wt 110.9 kg
[2016-11-07] VITALS (8 sets, daily range): BP systolic 91–115; BP diastolic 49–72; PULSE 86–111; TEMP 36.7–37.1; O2SAT 96–100; Ht 166.4 cm; Wt 110.9 kg
[~2016-11-07 14:20] MED LIST changes: -ASPEC81 PO; +ASPI81TA28 PO; +CLB/200 PO; -CLB200 PO; +OXYC1TAB3 PO; -OXYSR10 PO; -RXC5 PO
[2016-11-07] MEDS ORDERED: NURSING VERBAL MED ORDER ONE ×2 (15:30→17:45)
[2016-11-07] MEDS ORDERED: D5W AND 1/2NSS + 20MEQ KCL 1000 ML IV SCH (15:30)
[2016-11-07 15:41] LABS: HEMATOCRIT 35.1 % (37-47); MEAN CELL VOLUME 85.4 fL (80-100); MEAN CORPUSCULAR HEMOGLOBIN 27.3 pg (25-34); MEAN PLATELET VOLUME 9.8 fL (7.4-10.4); PLATELET COUNT 287 K/uL (130-400); RED BLOOD COUNT 4.11 M/uL (4.2-5.4); WHITE BLOOD COUNT 14.66 K/uL (4.8-10.8)
[2016-11-07 15:47] LABS: MEAN CORPUSCULAR HGB CONC 31.9 g/dl (32-36)
[2016-11-07 15:48] LABS: INR 1.1 (0.9-1.1); PROTHROMBIN TIME (PATIENT) 11.3 SECONDS (9.0-12.0)
[2016-11-07 16:14] LABS: C-REACTIVE PROTEIN 33.9 mg/dl (0-0.29); CALCIUM 9.1 mg/dl (8.5-10.1); CREATININE 1.4 mg/dl (0.60-1.20); POTASSIUM 3.7 mmol/L (3.5-5.1)
[2016-11-07] MEDS: MoRPHine SULFATE 2 MG/ML CARP IV PRN (16:20)
[2016-11-07] MEDS ORDERED: FENTANYL CITRATE INJ 50 MCG/1 ML 2 ML VIAL ONE ×2 (17:12→17:26)
[2016-11-07] MEDS ORDERED: MIDAZOLAM HCL 1 MG/ML 2ML VIAL ONE (17:12)
[2016-11-07] MEDS ORDERED: NEOSTIGMINE METHYLSULFATE 5 MG/5 ML SYR ONE (17:27)
[2016-11-07] MEDS ORDERED: GLYCOPYRROLATE INJ 0.2 MG/ML VIAL ONE (17:27)
[2016-11-07] MEDS ORDERED: LARYING-O-JET KIT (LTA) ONE ×2 (17:27)
[2016-11-07] MEDS ORDERED: ROCURONIUM BROMIDE 10 MG/ML 5 ML VIAL IV ONE (17:27)
[2016-11-07] MEDS ORDERED: LIDOCAINE HCL 2% 2 ML VIAL (20MG/ML) ONE (17:27)
[2016-11-07] MEDS ORDERED: ONDANSETRON INJ 2 MG/ML 2 ML VIAL ONE ×2 (17:27→20:32)
[2016-11-07] MEDS ORDERED: PROPOFOL IV EMULSION 10 MG/ML 20 ML VIAL IV ONE (17:27)
[2016-11-07] MEDS ORDERED: BUPIVACAINE 0.5 % 5 MG/1 ML MPF 30ML VIAL ONE (17:28)
[2016-11-07] MEDS ORDERED: BACITRACIN 50000 UNIT VIAL ONE ×2 (17:35→18:08)
--- NOTE | 2016-11-07 17:39 | History and Physical ---
History & Physical Date Nov 07, 2016. Chief Complaint 3 weeks s/p R TKA, 3 days of progressive increase in pain and redness around incision. History of Present Illness The patient is a 65 year old female with complaints of increasing pain and redness and start of drainage over the weekend. She was seen in the office last week and wound looked very good and was with out pain. Starting Monday she had increasing pain, redness, and started having purulent drainage from the wound. No new trauma. No fevers this weekend or in the office today. Past Medical/Surgical History Medical Problems: (1) Right knee DJD 2 rheumatoid arthritis Allergies Coded Allergies: No Known Allergies (Verified , 10/18/16) Home Medications Scheduled Acetaminophen (Sb Non-Aspirin Extra Stre), 1,000 MG PO Q8 Aspirin (Aspirin Ec), 81 MG PO DAILY Calcium Carbonate-Vitamin D (Calcium + D), 1 TAB PO QAM Celecoxib (CeleBREX), 200 MG PO BID Cholecalciferol (Vitamin D3), 5,000 UNITS PO QAM Esomeprazole Magnesium (Nexium), 40 MG PO QAM Oxybutynin Chloride (Ditropan), 5 MG PO QAM Pravastatin (Pravachol ), 40 MG PO QAM [Lisinopril Hctz], 1 TAB PO QAM Scheduled PRN Oxycodone Immediate Rel Tab (Roxicodone Ir), 1-2 TAB PO Q4H PRN for Severe Pain Physical Examination Skin: warm/dry Eyes: normal inspection ENT: normal ENT inspection Respiratory/Chest: lungs clear Cardiovascular: regular rate, rhythm Addiitonal Comments: right knee incision is red, with purulent drainage from distal and proximal aspect of wound, no significant effusion, moderate pain with ROM Diagnosis Right knee infection, s/p Right TKA 3 weeks ago. Plan of Treatment Plan I&D R knee with possible polyethylene exchange dependent on findings at time of surgery Discussed that if infection is deep will plan for IV abx for 6 weeks R/B/A discussed, she wishes to proceed.
[2016-11-07] MEDS ORDERED: POVIDONE-IODINE OP SOLN 30 ML BTL ONE (17:47)
[2016-11-07] MEDS ORDERED: VANCOMYCIN INJ 1,500 MG in SODIUM CHLORIDE 0.9% 500ML 500 ML IV ONE (18:00)
[2016-11-07] MEDS ORDERED: HYDROmorphone INJ 2 MG/ML SYR/VIAL ONE (18:12)
[2016-11-07] MEDS ORDERED: HYDROmorphone INJ 1 MG/ML SYR IV PRN (20:15)
[2016-11-07] MEDS ORDERED: FENTANYL CITRATE INJ 50 MCG/1 ML 2 ML VIAL IV PRN (20:15)
[2016-11-07] MEDS ORDERED: ATROPINE SULFATE 0.1 MG/ML 5ML SYR IV PRN (20:15)
[2016-11-07] MEDS ORDERED: ONDANSETRON INJ 2 MG/ML 2 ML VIAL IV PRN (20:15)
[2016-11-07] MEDS ORDERED: PROMETHAZINE HCL INJ 6.25 MG in SODIUM CHLORIDE 0.9% 50ML 50 ML IV PRN (20:15)
[2016-11-07] MEDS ORDERED: EpHEDrine SULFATE INJ 50 MG/ML AMP IV PRN (20:15)
--- NOTE | 2016-11-07 20:34 | [facility] Operative Report ---
Operative Report Operative Date Nov 07, 2016. Pre-Operative Diagnosis Right knee infection, s/p Right TKA 3 weeks ago Post-Operative Diagnosis Right knee infection, s/p Right TKA 3 weeks ago Procedure(s) Performed Right Knee Incision and Drainage and Poly Exchange Surgeon Dr. Winters Banking Analyst Surgeon(s) none Estimated Blood Loss 20ml Findings Christen purulent drainage from the distal aspect of the wound, christen purulent material deep to the arthrotomy and around the prosthesis Specimens Specimens: A. Removed Hardware Right Knee For Culture: 1. Distal Right Knee Infection - Routine - aerobic/anaerobic, gram stain, c+s 2. Proximal Right Knee Infection - Routine - aerobic/anaerobic, gram stain, c+s Drains Hemovac Anesthesia Gen. Complication(s) None Disposition Recovery Room / PACU Indications Patient is a 65-year-old female who is about 3 weeks status post right total knee arthroplasty. She was seen in the office last Monday and was doing very well postoperatively. Her wound looked good, her pain was minimal. Starting on Monday she had progressively increasing pain and redness swelling in the knee. We saw her in the office today and she had christen purulent drainage from the distal aspect of the wound. She presents for irrigation and debridement and possible polyethylene exchange. Description of Procedure Risks benefits and alternatives of surgery including but not limited to infection , DVT , pain , stiffness need for revision surgery , need for later removal of the total knee, damage to blood vessels damage to nerves or risks of anesthesia were discussed with the patient and she wished to proceed. Patient was identified in the laterality was confirmed and marked. A well-padded tourniquet was applied and then the limb was prepped and draped in standard manner with ChloraPrep. The limb was exsanguinated and the tourniquet was inflated. The previous incision intact but had christen purulent drainage from the distal aspect and a small amount of purulent drainage from the proximal aspect of the incision. There is surrounding erythema along the length of the incision. I opened the previous incision and encountered christen purulent material and fluid. This fluid was sent for culture. The arthrotomy was relatively intact however there is significant friability to the tissues and purulent drainage coming from the arthrotomy. The tissues of the deep joint appeared to be grossly infected. There was another region more proximally that had some additional larger amount of purulent material that was also cultured. I then thoroughly irrigated the wound with Pulsavac with bacitracin and the fluid for total 9 L. I utilized the versa jet to debride the deep tissues. The previous polyethylene was removed and the posterior capsule was thoroughly debrided. I performed a sharp debridement down to level of bone. We then changed our gloves placed fresh instruments and placed new drapes down. Betadine soak was performed. A new polyethylene was placed. This was the same size as the previous polyethylene. 2 Hemovac drains were placed. The arthrotomy was then closed with interrupted #1 Vicryl suture. The subcutaneous tissue was closed with interrupted 2-0 Vicryl suture. The skin was closed with 3-0 nylon. A Prevena wound VAC was placed. Sterile dressings applied and the tourniquet was released. All needle and sponge counts were correct at the end of the procedure patient was transferred to the PACU in stable condition without apparent complication. The PA-C was necessary for assistance with procedure for assistance in positioning, prepping, draping, retraction and closure. I attest to the content of the Intraoperative Record and any orders documented therein. Any exceptions are noted below.
[2016-11-07] MEDS ORDERED: DiphenhydrAMINE HCL 50 MG/ML VIAL IV PRN (20:45)
[2016-11-07] MEDS ORDERED: METOCLOPRAMIDE HCL INJ 5 MG/ML 2 ML VIAL IV PRN (20:45)
[2016-11-07] MEDS ORDERED: ZOLPIDEM TARTRATE 5 MG TAB PO PRN (20:45)
[2016-11-07] MEDS ORDERED: KETOROLAC TROMETHAMINE 15 MG/ML VIAL IV. PRN (20:45)
[2016-11-07] MEDS ORDERED: MAGNESIUM HYDROXIDE SUSP 30 ML UDC PO PRN (20:45)
[2016-11-07] MEDS ORDERED: ALUMINUM/MAGNESIUM/SIMETH (MAALOX MAX) 30 ML UDC PO PRN (20:45)
--- NOTE | 2016-11-07 21:17 | Anesthesiology Progress Note ---
Anesthesia Post Op Note Date & Time Nov 07, 2016 at 21:17 Vital Signs Pain Intensity: 0 Vital Signs Past 12 Hours Date Time Temp Pulse Resp B/P (MAP) Pulse Ox O2 Delivery O2 Flow Rate FiO2 11/07/16 21:15 100 16 107/60 98 Nasal Cannula 2 11/07/16 21:05 36.3 93 16 106/48 99 Nasal Cannula 2 11/07/16 20:55 104 16 132/84 96 Nasal Cannula 2 11/07/16 20:45 99 16 112/58 98 Nasal Cannula 2 11/07/16 20:35 104 16 121/63 98 Oxymask 10 11/07/16 20:26 36.3 105 16 112/59 98 Oxymask 10 11/07/16 17:24 36.9 92 16 139/63 (88) 97 Room Air 11/07/16 14:36 36.7 86 17 91/49 99 Room Air 11/07/16 14:30 96 Room Air Notes Mental Status: alert / awake / arousable, participated in evaluation Pt Amnestic to Procedure: Yes Nausea / Vomiting: adequately controlled Pain: adequately controlled Airway Patency, RR, SpO2: stable & adequate BP & HR: stable & adequate Hydration State: stable & adequate Anesthetic Complications: no major complications apparent
[2016-11-07] MEDS: D5W AND 1/2NSS + 20MEQ KCL 1,000 ML IV SCH (21:31)
[2016-11-07] MEDS: ACETAMINOPHEN 500 MG TAB PO SCH (21:44)
[2016-11-07] MEDS: ASPIRIN 81 MG ECTAB PO SCH (21:44)
[2016-11-08] VITALS (8 sets, daily range): BP systolic 94–126; BP diastolic 54–74; PULSE 91–111; TEMP 37.1–38.1; O2SAT 93–99
[2016-11-08] MEDS: MoRPHine SULFATE 2 MG/ML CARP IV PRN ×3 (01:26→11:15)
[2016-11-08] MEDS: ACETAMINOPHEN 500 MG TAB PO SCH ×3 (05:48→21:37)
[2016-11-08] MEDS ORDERED: VANCOMYCIN INJ 1,500 MG in SODIUM CHLORIDE 0.9% 500ML 500 ML IV SCH (06:00)
[2016-11-08 07:00] LABS: HEMATOCRIT 28.4 % (37-47); MEAN CELL VOLUME 85.5 fL (80-100); MEAN CORPUSCULAR HEMOGLOBIN 28.6 pg (25-34); MEAN CORPUSCULAR HGB CONC 33.5 g/dl (32-36); MEAN PLATELET VOLUME 9.9 fL (7.4-10.4); PLATELET COUNT 219 K/uL (130-400); RED BLOOD COUNT 3.32 M/uL (4.2-5.4); WHITE BLOOD COUNT 9.94 K/uL (4.8-10.8)
--- NOTE | 2016-11-08 07:17 | Orthopedic Progress Note ---
Orthopedic Progress Note Date of Service Nov 08, 2016. Subjective Post OP Day: 1 Reports: feeling well, pain controlled w PO medications, Denies: complaints, chest pain, SOB, nausea / vomiting, light headedness, calf pain Objective calves soft nontender, N/V intact, capillary refill less than 2 sec., dressing C /D/I, A&O x3, toes mobile, hemovac drainage (50cc) Date Time Temp Pulse Resp B/P (MAP) Pulse Ox O2 Delivery O2 Flow Rate FiO2 11/08/16 03:15 37.4 94 18 95/60 (72) 99 Room Air 11/08/16 00:35 37.1 91 18 97/61 (73) 97 Nasal Cannula 2.0 11/08/16 00:05 Nasal Cannula 2.0 11/07/16 22:56 37.1 99 18 99/63 (75) 100 Nasal Cannula 2.0 11/07/16 22:25 37.0 98 16 98/63 (75) 100 Nasal Cannula 2.0 11/07/16 21:55 36.9 111 18 115/56 (75) 96 Nasal Cannula 2.0 11/07/16 21:39 96 Nasal Cannula 2.0 11/07/16 21:37 96 Nasal Cannula 2.0 11/07/16 21:25 36.8 110 16 113/72 (86) 98 Nasal Cannula 2.0 11/07/16 21:15 100 16 107/60 98 Nasal Cannula 2 11/07/16 21:05 36.3 93 16 106/48 99 Nasal Cannula 2 11/07/16 20:55 104 16 132/84 96 Nasal Cannula 2 11/07/16 20:45 99 16 112/58 98 Nasal Cannula 2 11/07/16 20:35 104 16 121/63 98 Oxymask 10 11/07/16 20:26 36.3 105 16 112/59 98 Oxymask 10 11/07/16 17:24 36.9 92 16 139/63 (88) 97 Room Air 11/07/16 14:36 36.7 86 17 91/49 99 Room Air 11/07/16 14:30 96 Room Air Laboratory Results 24 Hours: Test 11/07/16 15:29 11/08/16 06:14 Hematocrit 35.1 % 28.4 % Hemoglobin 11.2 g/dL 9.5 g/dL Prothromb Time International Ratio 1.1 Prothrombin Time 11.3 SECONDS Assessment & Plan Assessment: POD #1 I & D of right knee with poly exchange S/P Right TKA Plan: DVT Prophylaxis - ASA Discharge - uncertain PT/OT cultures pending at the time of evaluation. On Vancomycin until sensitivities come back. Inhouse Planning Pain Management: PO Tylenol, Oxy IR DVT Prophylaxis: TEDs, SCDs, ASA Discharge Planning Discharge Planning: uncertain DVT Prophylaxis: TEDs, ASA Therapy: Physical Therapy
[2016-11-08 07:27] LABS: BUN/CREATININE RATIO 22.6 (10-20); CALCIUM 8.2 mg/dl (8.5-10.1); CREATININE 0.9 mg/dl (0.60-1.20); POTASSIUM 3.6 mmol/L (3.5-5.1)
[2016-11-08] MEDS: OXYCODONE HCL IR 5 MG TAB (IMMEDIATE RELEASE) PO PRN ×3 (07:39→20:09)
[2016-11-08] MEDS ORDERED: LISINOPRIL HCTZ PO SCH (09:00)
[2016-11-08] MEDS ORDERED: ASPIRIN 81 MG ECTAB PO SCH (09:00)
--- NOTE | 2016-11-08 09:07 | Anesthesiology Progress Note ---
Anesthesia Post Op Note Date & Time Nov 08, 2016 at 09:07 Vital Signs Pain Intensity: 9.0 Vital Signs Past 12 Hours Date Time Temp Pulse Resp B/P (MAP) Pulse Ox O2 Delivery O2 Flow Rate FiO2 11/08/16 08:33 37.1 11/08/16 08:07 38.1 102 18 97/58 (71) 93 Room Air 11/08/16 07:15 Room Air 11/08/16 03:15 37.4 94 18 95/60 (72) 99 Room Air 11/08/16 00:35 37.1 91 18 97/61 (73) 97 Nasal Cannula 2.0 11/08/16 00:05 Nasal Cannula 2.0 11/07/16 22:56 37.1 99 18 99/63 (75) 100 Nasal Cannula 2.0 11/07/16 22:25 37.0 98 16 98/63 (75) 100 Nasal Cannula 2.0 11/07/16 21:55 36.9 111 18 115/56 (75) 96 Nasal Cannula 2.0 11/07/16 21:39 96 Nasal Cannula 2.0 11/07/16 21:37 96 Nasal Cannula 2.0 11/07/16 21:25 36.8 110 16 113/72 (86) 98 Nasal Cannula 2.0 11/07/16 21:15 100 16 107/60 98 Nasal Cannula 2 Notes Mental Status: alert / awake / arousable, participated in evaluation Pt Amnestic to Procedure: Yes Nausea / Vomiting: adequately controlled Pain: adequately controlled Airway Patency, RR, SpO2: stable & adequate BP & HR: stable & adequate Hydration State: stable & adequate Anesthetic Complications: no major complications apparent
[2016-11-08] MEDS: CALCIUM 600MG + VIT D 400 IU TAB PO SCH (09:38)
[2016-11-08] MEDS: OXYBUTYNIN CHLORIDE 5 MG TAB PO SCH (09:39)
[2016-11-08] MEDS: ASPIRIN 81 MG ECTAB PO SCH ×2 (09:39→21:36)
[2016-11-08] MEDS: HYDROCHLOROTHIAZIDE 25 MG TAB PO SCH (09:41)
[2016-11-08] MEDS: LISINOPRIL 10 MG TAB PO SCH (09:41)
[2016-11-08] MEDS: PRAVASTATIN SOD 20 MG TAB PO SCH (09:42)
[2016-11-08] MEDS: MULTIVITAMIN TAB PO SCH (09:42)
[2016-11-08] MEDS: PANTOprazole SOD 40 MG TAB PO SCH (09:43)
[2016-11-08] MEDS: D5W AND 1/2NSS + 20MEQ KCL 1,000 ML IV SCH ×2 (09:48→17:36)
--- NOTE | 2016-11-08 10:38 | Medical Consult ---
Consultation Date of Consultation: Nov 08, 2016. Attending Physician: Kiran Winters M.D. Reason for Consultation: Infected right TKA History of Present Illness 65-year-old female with hypertension and hyperlipidemia who is now approximately 3 weeks status post right knee replacement. She did well initially postoperatively, but then developed redness and swelling with drainage from the incision, and was admitted to the hospital for further management. She has now undergone surgical debridement with poly exchange. Operative cultures are pending, Gram stain showing gram-positive cocci. Currently receiving vancomycin and tolerating without apparent difficulty. No fever. Past Medical/Surgical History Medical Problems: (1) Post-operative pain Status: Acute PAST MEDICAL HISTORY: Significant for shortness of breath walking up and down hills, rheumatoid arthritis and GERD. PAST SURGICAL HISTORY: Hysterectomy, appendectomy, tonsillectomy, and cholecystectomy. Family History FHx: heart disease Social History Smoking Status: Current Every Day Smoker Marital Status: Housing Status: lives with family Occupation Status: retired Allergies Coded Allergies: No Known Allergies (Verified , 10/18/16) Current Inpatient Medications Current Inpatient Medications Medications (Trade) Dose Ordered Sig/Dasha Route Start Time Stop Time Status Last Admin Dose Admin Morphine Sulfate (MoRPHine SULFATE INJ) 2 mg Q2H PRN IV 11/07/16 15:30 11/21/16 15:29 11/08/16 04:59 2 MG Celecoxib (CeleBREX CAP) 200 mg BID PO 11/08/16 21:00 12/08/16 20:59 Oxybutynin Chloride (Ditropan Tab) 5 mg QAM PO 11/08/16 09:00 12/08/16 08:59 11/08/16 09:39 5 MG Pravastatin Sodium (Pravachol Tab) 40 mg QAM PO 11/08/16 09:00 12/08/16 08:59 11/08/16 09:42 40 MG Calcium/Vitamin D (Caltrate Plus Tab) 1 tab QAM PO 11/08/16 09:00 12/08/16 08:59 11/08/16 09:38 1 TAB Pantoprazole Sodium (Protonix Tab) 40 mg QAM PO 11/08/16 09:00 12/08/16 08:59 11/08/16 09:43 40 MG Potassium Chloride/Dextrose/ Sod Cl 1,000 ml @ 100 mls/hr Q10H IV 11/07/16 21:30 11/08/16 20:33 11/08/16 09:48 100 MLS/HR Oxycodone HCl (Roxicodone Immediate Rel Tab) 1 TABLET FOR PAIN RATING... Q4H PRN PO 11/07/16 20:45 11/21/16 20:44 11/08/16 07:39 10 MG Acetaminophen (Tylenol Tab) 1,000 mg Q8 PO 11/07/16 22:00 12/07/16 21:59 11/08/16 05:48 1,000 MG Magnesium Hydroxide (Milk Of Magnesia Susp) 30 ml Q6H PRN PO 11/07/16 20:45 12/07/16 20:44 Diphenhydramine HCl (Benadryl Cap) 25 mg Q8H PRN PO 11/07/16 20:45 12/07/16 20:44 Diphenhydramine HCl (Benadryl Inj) 25 mg Q8H PRN IV 11/07/16 20:45 12/07/16 20:44 Al Hydrox/Mg Hydrox/Simethicone (Maalox Max Susp) 15 ml Q4H PRN PO 11/07/16 20:45 12/07/16 20:44 Zolpidem Tartrate (Ambien Tab) 5 mg HSZ PRN PO 11/07/16 20:45 12/07/16 20:44 Multivitamins (Multivitamin Tab) 1 tab QAM PO 11/08/16 09:00 12/08/16 08:59 11/08/16 09:42 1 TAB Ondansetron HCl (Zofran Inj) 4 mg Q6H PRN IV 11/07/16 20:45 12/07/16 20:44 Metoclopramide HCl (Reglan Inj) 10 mg Q6H PRN IV 11/07/16 20:45 12/07/16 20:44 Ketorolac Tromethamine (Toradol Inj) 15 mg Q6H PRN IV. 11/07/16 20:45 11/08/16 20:44 11/08/16 00:18 15 MG Aspirin (Ecotrin Tab) 81 mg BID PO 11/07/16 21:00 12/07/16 20:59 11/08/16 09:39 81 MG Lisinopril (Zestril Tab) 10 mg QAM PO 11/08/16 09:00 12/08/16 08:59 11/08/16 09:41 10 MG Hydrochlorothiazide (Hydrochlorothiazide Tab) 12.5 mg QAM PO 11/08/16 09:00 12/08/16 08:59 11/08/16 09:41 12.5 MG Review of Systems All systems were reviewed and are negative except as per HPI Physical Exam Date Time Temp Pulse Resp B/P (MAP) Pulse Ox O2 Delivery O2 Flow Rate FiO2 11/08/16 09:51 111 126/72 (90) 11/08/16 08:33 37.1 11/08/16 08:07 38.1 102 18 97/58 (71) 93 Room Air 11/08/16 07:15 Room Air 11/08/16 03:15 37.4 94 18 95/60 (72) 99 Room Air 11/08/16 00:35 37.1 91 18 97/61 (73) 97 Nasal Cannula 2.0 11/08/16 00:05 Nasal Cannula 2.0 11/07/16 22:56 37.1 99 18 99/63 (75) 100 Nasal Cannula 2.0 11/07/16 22:25 37.0 98 16 98/63 (75) 100 Nasal Cannula 2.0 11/07/16 21:55 36.9 111 18 115/56 (75) 96 Nasal Cannula 2.0 11/07/16 21:39 96 Nasal Cannula 2.0 11/07/16 21:37 96 Nasal Cannula 2.0 11/07/16 21:25 36.8 110 16 113/72 (86) 98 Nasal Cannula 2.0 11/07/16 21:15 100 16 107/60 98 Nasal Cannula 2 11/07/16 21:05 36.3 93 16 106/48 99 Nasal Cannula 2 11/07/16 20:55 104 16 132/84 96 Nasal Cannula 2 11/07/16 20:45 99 16 112/58 98 Nasal Cannula 2 11/07/16 20:35 104 16 121/63 98 Oxymask 10 11/07/16 20:26 36.3 105 16 112/59 98 Oxymask 10 11/07/16 17:24 36.9 92 16 139/63 (88) 97 Room Air 11/07/16 14:36 36.7 86 17 91/49 99 Room Air 11/07/16 14:30 96 Room Air General Appearance: WD/WN, no apparent distress Head: normocephalic, atraumatic Eyes: normal inspection, EOMI, sclerae normal ENT: normal ENT inspection, hearing grossly normal, pharynx normal Neck: supple, no adenopathy, thyroid normal, trachea midline Respiratory/Chest: chest non-tender, lungs clear, normal breath sounds, no respiratory distress Cardiovascular: regular rate, rhythm, no gallop, no murmur Abdomen/GI: normal bowel sounds, non tender, soft, no organomegaly Back: normal inspection, no CVA tenderness Extremities/Musculoskelatal: normal capillary refill, non-tender Neurologic/Psych: alert, oriented x 3 Skin: normal color, no rash, + pertinent finding (Surgical dressing intact right knee) Lymphatic: no adenopathy Laboratory Results Date/Time Source Procedure Growth Status 11/07/16 18:24 Incision Site Knee Right Gram Stain - Final Resulted 11/07/16 18:24 Incision Site Knee Right Bacterial Culture Pending Resulted 11/07/16 18:24 Incision Site Knee Right Gram Stain - Final Resulted 11/07/16 18:24 Incision Site Knee Right Bacterial Culture Pending Resulted Last 24 Hours Test 11/07/16 15:29 11/08/16 06:14 White Blood Count 14.66 K/uL 9.94 K/uL Red Blood Count 4.11 M/uL 3.32 M/uL Hemoglobin 11.2 g/dL 9.5 g/dL Hematocrit 35.1 % 28.4 % Mean Corpuscular Volume 85.4 fL 85.5 fL Mean Corpuscular Hemoglobin 27.3 pg 28.6 pg Mean Corpuscular Hemoglobin Concent 31.9 g/dl 33.5 g/dl RDW Standard Deviation 44.9 fL 45.0 fL RDW Coefficient of Variation 14.4 % 14.4 % Platelet Count 287 K/uL 219 K/uL Mean Platelet Volume 9.8 fL 9.9 fL Erythrocyte Sedimentation Rate 43 mm/hr Prothrombin Time 11.3 SECONDS Prothromb Time International Ratio 1.1 Sodium Level 137 mmol/L 136 mmol/L Potassium Level 3.7 mmol/L 3.6 mmol/L Chloride Level 104 mmol/L 104 mmol/L Carbon Dioxide Level 24 mmol/L 26 mmol/L Anion Gap 9.0 mmol/L 6.0 mmol/L Blood Urea Nitrogen 28 mg/dl 20 mg/dl Creatinine 1.40 mg/dl 0.90 mg/dl Est Creatinine Clear Calc Drug Dose 49.4 ml/min 76.8 ml/min Estimated GFR () 45.6 77.8 Estimated GFR (Non- 39.3 67.1 BUN/Creatinine Ratio 20.0 22.6 Random Glucose 123 mg/dl 122 mg/dl Calcium Level 9.1 mg/dl 8.2 mg/dl C-Reactive Protein 33.90 mg/dl Assessment & Plan Early infection of right TKA, now s/p debridement with poly-exchange. Gram stain suggestive of Staph infection. Patient to be continued on vancomycin pending final culture results. Will need PICC, 6-8 weeks IV antibiotic therapy. Will follow.
[2016-11-08] MEDS: CeleBREX 200 MG CAP PO SCH (21:36)
[2016-11-09] VITALS (20 sets, daily range): BP systolic 74–149; BP diastolic 47–78; PULSE 72–172; TEMP 36.5–37.1; O2SAT 95–99
[2016-11-09] MEDS: MoRPHine SULFATE 2 MG/ML CARP IV PRN ×2 (00:34→20:12)
[2016-11-09] MEDS ORDERED: NURSING DECISION MEDICATION ORDER SCH (00:45)
[2016-11-09] MEDS: ACETAMINOPHEN 500 MG TAB PO SCH ×2 (06:06→14:02)
--- NOTE | 2016-11-09 07:02 | Orthopedic Progress Note ---
Orthopedic Progress Note Date of Service Nov 09, 2016. Subjective Post OP Day: 2 Objective N/V intact, dressing C/D/I, toes mobile Date Time Temp Pulse Resp B/P (MAP) Pulse Ox O2 Delivery O2 Flow Rate FiO2 11/09/16 00:30 Room Air 11/08/16 23:03 37.3 95 19 103/55 (71) 98 Room Air 11/08/16 15:25 37.8 94 18 94/54 (67) 99 Room Air 11/08/16 15:15 Room Air 11/08/16 11:41 Room Air 11/08/16 11:36 37.1 100 18 114/74 (87) 98 Room Air 11/08/16 09:51 111 126/72 (90) 11/08/16 08:33 37.1 11/08/16 08:07 38.1 102 18 97/58 (71) 93 Room Air 11/08/16 07:15 Room Air Assessment & Plan Assessment: POD #2 I & D of right knee with poly exchange S/P Right TKA Plan: DVT Prophylaxis - ASA Discharge - uncertain PT/OT cultures growing staph, sensitivity pending On Vancomycin until sensitivities come back. Appreciate ID help Requesting home health for IV abx if covered Inhouse Planning Pain Management: PO Tylenol, Oxy IR DVT Prophylaxis: TEDs, SCDs, ASA Discharge Planning Discharge Planning: uncertain DVT Prophylaxis: TEDs, ASA Therapy: Physical Therapy
[2016-11-09] MEDS: LISINOPRIL 10 MG TAB PO SCH (08:41)
[2016-11-09] MEDS: HYDROCHLOROTHIAZIDE 25 MG TAB PO SCH (08:41)
[2016-11-09] MEDS: MULTIVITAMIN TAB PO SCH (08:41)
[2016-11-09] MEDS: PANTOprazole SOD 40 MG TAB PO SCH (08:43)
[2016-11-09] MEDS: ASPIRIN 81 MG ECTAB PO SCH (08:43)
[2016-11-09] MEDS: OXYBUTYNIN CHLORIDE 5 MG TAB PO SCH (08:43)
[2016-11-09] MEDS: PRAVASTATIN SOD 20 MG TAB PO SCH (08:43)
[2016-11-09] MEDS: CALCIUM 600MG + VIT D 400 IU TAB PO SCH (08:43)
[2016-11-09] MEDS: CeleBREX 200 MG CAP PO SCH ×2 (08:44→20:55)
[2016-11-09] MEDS: OXYCODONE HCL IR 5 MG TAB (IMMEDIATE RELEASE) PO PRN ×3 (08:49→20:52)
[2016-11-09 09:09] LABS: HEMATOCRIT 30.7 % (37-47); MEAN CORPUSCULAR HEMOGLOBIN 28.5 pg (25-34); MEAN CORPUSCULAR HGB CONC 33.6 g/dl (32-36); MEAN PLATELET VOLUME 9.9 fL (7.4-10.4); PLATELET COUNT 288 K/uL (130-400); RED BLOOD COUNT 3.61 M/uL (4.2-5.4)
[2016-11-09] MEDS ORDERED: POTASSIUM CHLORIDE 20 MEQ TABCR PO ONE ×2 (09:15→10:30)
[2016-11-09 09:58] LABS: CALCIUM 9.1 mg/dl (8.5-10.1); CREATININE 0.9 mg/dl (0.60-1.20); POTASSIUM 3.4 mmol/L (3.5-5.1)
[2016-11-09] MEDS ORDERED: AMIODARONE IV BOLUS / DRIP IV STA (10:16)
--- NOTE | 2016-11-09 10:19 | Progress Note ---
Medicine Progress Note Date & Time of Visit: Nov 09, 2016 at 10:19. Objective Last 8 Hrs Date Time Temp Pulse Resp B/P (MAP) Pulse Ox O2 Delivery O2 Flow Rate FiO2 11/09/16 10:11 168 74/55 (61) 11/09/16 09:32 36.6 98 18 105/63 (77) 97 Room Air 11/09/16 09:06 36.5 155 24 96 11/09/16 08:36 155 24 97/68 (78) 96 Room Air 11/09/16 07:58 134 11/09/16 07:23 124 11/09/16 07:15 36.5 18 110/73 (85) 97 Room Air Physical Exam: General-[] Eyes-[] ENT-[] Neck-[] Lungs-[] Heart-[] Abdomen-[] Extremities-[] Neuro-[] Laboratory Results: Last 24 Hours Test 11/09/16 08:58 White Blood Count 8.40 K/uL Red Blood Count 3.61 M/uL Hemoglobin 10.3 g/dL Hematocrit 30.7 % Mean Corpuscular Volume 85.0 fL Mean Corpuscular Hemoglobin 28.5 pg Mean Corpuscular Hemoglobin Concent 33.6 g/dl RDW Standard Deviation 43.9 fL RDW Coefficient of Variation 14.1 % Platelet Count 288 K/uL Mean Platelet Volume 9.9 fL Sodium Level 139 mmol/L Potassium Level 3.4 mmol/L Chloride Level 106 mmol/L Carbon Dioxide Level 25 mmol/L Anion Gap 8.0 mmol/L Blood Urea Nitrogen 14 mg/dl Creatinine 0.90 mg/dl Est Creatinine Clear Calc Drug Dose 76.8 ml/min Estimated GFR () 77.8 Estimated GFR (Non- 67.1 BUN/Creatinine Ratio 15.0 Random Glucose 157 mg/dl Calcium Level 9.1 mg/dl Magnesium Level 2.0 mg/dl Troponin I < 0.015 ng/ml Assessment & Plan Current Inpatient Medications: Current Inpatient Medications Medications (Trade) Dose Ordered Sig/Dasha Route Start Time Stop Time Status Last Admin Dose Admin Morphine Sulfate (MoRPHine SULFATE INJ) 2 mg Q2H PRN IV 11/07/16 15:30 11/21/16 15:29 11/09/16 00:34 2 MG Celecoxib (CeleBREX CAP) 200 mg BID PO 11/08/16 21:00 12/08/16 20:59 11/09/16 08:44 200 MG Oxybutynin Chloride (Ditropan Tab) 5 mg QAM PO 11/08/16 09:00 12/08/16 08:59 11/09/16 08:43 5 MG Pravastatin Sodium (Pravachol Tab) 40 mg QAM PO 11/08/16 09:00 12/08/16 08:59 11/09/16 08:43 40 MG Calcium/Vitamin D (Caltrate Plus Tab) 1 tab QAM PO 11/08/16 09:00 12/08/16 08:59 11/09/16 08:43 1 TAB Pantoprazole Sodium (Protonix Tab) 40 mg QAM PO 11/08/16 09:00 12/08/16 08:59 11/09/16 08:43 40 MG Oxycodone HCl (Roxicodone Immediate Rel Tab) 1 TABLET FOR PAIN RATING... Q4H PRN PO 11/07/16 20:45 11/21/16 20:44 11/09/16 08:49 10 MG Acetaminophen (Tylenol Tab) 1,000 mg Q8 PO 11/07/16 22:00 12/07/16 21:59 11/09/16 06:06 1,000 MG Magnesium Hydroxide (Milk Of Magnesia Susp) 30 ml Q6H PRN PO 11/07/16 20:45 12/07/16 20:44 Diphenhydramine HCl (Benadryl Cap) 25 mg Q8H PRN PO 11/07/16 20:45 12/07/16 20:44 Diphenhydramine HCl (Benadryl Inj) 25 mg Q8H PRN IV 11/07/16 20:45 12/07/16 20:44 Al Hydrox/Mg Hydrox/Simethicone (Maalox Max Susp) 15 ml Q4H PRN PO 11/07/16 20:45 12/07/16 20:44 Zolpidem Tartrate (Ambien Tab) 5 mg HSZ PRN PO 11/07/16 20:45 12/07/16 20:44 Multivitamins (Multivitamin Tab) 1 tab QAM PO 11/08/16 09:00 12/08/16 08:59 11/08/16 09:42 1 TAB Ondansetron HCl (Zofran Inj) 4 mg Q6H PRN IV 11/07/16 20:45 12/07/16 20:44 Metoclopramide HCl (Reglan Inj) 10 mg Q6H PRN IV 11/07/16 20:45 12/07/16 20:44 Aspirin (Ecotrin Tab) 81 mg BID PO 11/07/16 21:00 12/07/16 20:59 11/09/16 08:43 81 MG Lisinopril (Zestril Tab) 10 mg QAM PO 11/08/16 09:00 12/08/16 08:59 Future Hold 11/08/16 09:41 10 MG Hydrochlorothiazide (Hydrochlorothiazide Tab) 12.5 mg QAM PO 11/08/16 09:00 12/08/16 08:59 Future Hold 11/08/16 09:41 12.5 MG Heparin Sodium (Porcine) (Heparin 10 Unit/ ml 5 ml Flush) 5 ml PRN PRN FLUSH 11/09/16 00:45 12/09/16 00:44 11/09/16 00:39 5 ML Amiodarone HCl (Cordarone IV Bolus / Drip) 1 ea NOW STAT IV 11/09/16 10:16 11/09/16 10:17 UNV
[2016-11-09] MEDS ORDERED: AMIODARONE 150MG / 100ML D5W ONE (10:26)
[2016-11-09] MEDS ORDERED: AMIODARONE 360MG / 200ML D5W ONE (10:27)
[2016-11-09] MEDS ORDERED: SODIUM CHLORIDE 0.9% 500ML 500 ML IV SCH (10:30)
[2016-11-09] MEDS ORDERED: AMIODARONE / D5W 100 ML IV ONE (10:30)
[2016-11-09] MEDS ORDERED: AMIODARONE / D5W 200 ML IV SCH (10:30)
--- NOTE | 2016-11-09 10:57 | Cardiology Consultation ---
Cardiology Consultation Date of Consultation: Nov 09, 2016 History of Present Illness Rissa Calvo is a 65 year old female seen in cardiology consultation per the request of Dr Vann for the evaluation of atrial fibrillation with rapid ventricular rate. Approximately 3 weeks ago on 10/18/16 the patient underwent right total knee arthroplasty for symptomatic osteoarthritis. She tolerated the procedure well. Postprocedure however she has developed progressive postoperative pain. She is ultimately admitted on 11/07/16 with drainage from the procedure site and erythema and she returned to the operating room on 11/07/16 with findings of purulent drainage from the distal aspect of the wound with purulent material deep to the arthrotomy and around the prosthesis. She underwent right knee incision and drainage with poly-exchange. She has been recovering on the third floor in the interim has been feeling well. When cultures have yielded methicillin sensitive staph aureus, and she has been placed on antibiotic therapy under the guidance of Dr. Son of infectious disease. Her presenting EKG on 11/07/16 at 1525 revealed normal sinus rhythm at 90 bpm, with no significant ST changes. Per review of her heart rate trend while on the third floor, her heart rate is been in the 90 to low 100 be per minute range postoperatively, until this morning when vital signs were taken at 7:23 AM she was found to have a heart rate of 124 bpm and EKG was subsequent performed on 11/09/69 8:37 AM revealing atrial fibrillation with rapid ventricular rate 144 bpm with associated nonspecific ST changes. The patient was seen by of hosptalist medicine and arrangements were made for the patient to be transferred to telemetry. She was seen and examined in room 241 by the undersigned. She denied any subjective complaint although she did note a "funny racing sensation" in her chest. She denies any chest discomfort or shortness of breath. She however has been bedbound. Her knee is wrapped, and there is a drain in place. Review of her outpatient chart reveals that she has been seen in cardiology consultation by Dr. Malik Ivan at the [facility] site a year ago in October 2015. At that time she had been seen in follow-up of a recent emergency department visit for complaint of palpitations. She was discharged from the emergency department on metoprolol, but the rhythm strips were not available to document what her presenting rhythm was. By history, it sounds as though patient was having runs of paroxysmal supraventricular tachycardia. She had an echocardiogram that revealed mild aortic valve stenosis and mild aortic valve regurgitation. There were changes on the mitral valve suggestive of past rheumatic heart disease involvement with noted mild mitral stenosis with a calculated diastolic mitral valve gradient of 4 mmHg. The patient was advised to return for one year routine cardiology follow-up which was tentatively scheduled in [place] for 11/11/16. In the interim, the patient has been off of beta gomez, and his been on aspirin 81 mg daily, pravastatin, and lisinopril HCTZ. Past Medical/Surgical History Problem List: Medical Problems: (1) Right knee DJD History Past Medical History: 1. Hypertension 2. Hypothyroidism 3. Hypertension 4. Obesity 5. Palpitations, 6. Past cigarette smoking 7. Dyslipidemia 8. Suspected underlying heart disease with mild mitral stenosis, mild aortic valve stenosis, mild aortic regurgitation, echocardiogram, October 2015 Past Surgical History: 1. Right total knee replacement 11/18/16 2. Incision and drainage right total knee 11/07/16 3. Remote cholecystectomy 1999 4. Remote appendectomy. 5. History of partial hysterectomy 1988 4. Remote tonsillectomy Social History: Past cigarette smoker Family History: History of valvular heart disease in her mother and myocardial infarction in her father. Review Of Systems See above for pertinent positives & negatives. A total of 10 systems reviewed and were otherwise negative. Allergies Coded Allergies: No Known Allergies (Verified , 10/18/16) Medications Reported Home Medications Medications Dose Route/Sig Max Daily Dose Days Date Category Dose Instructions Roxicodone Ir (Oxycodone HCl) 5 Mg Tab 1-2 Tab PO Q4H PRN 11/06/16 Rx CeleBREX (Celecoxib) 200 Mg Cap 200 Mg PO BID 11/06/16 Reported Aspirin Ec (Aspirin) 81 Mg Tab 81 Mg PO DAILY 11/06/16 Reported Sb Non-Aspirin Extra Stre (Acetaminophen) 500 Mg Tab 1,000 Mg PO Q8 14 10/20/16 Rx Vitamin D3 (Cholecalciferol) 1,000 Unit Tab 5,000 Units PO QAM 09/23/16 Reported Calcium + D (Calcium Carbonate-Vitamin D) 1 Tab Tab 1 Tab PO QAM 09/23/16 Reported Pravachol (Pravastatin Sodium) 20 Mg Tab 40 Mg PO QAM 09/23/16 Reported Ditropan (Oxybutynin Chloride) 5 Mg Tab 5 Mg PO QAM 09/23/16 Reported Nexium (Esomeprazole Magnesium) 40 Mg Capcr 40 Mg PO QAM 09/23/16 Reported [Lisinopril Hctz] 1 Tab PO QAM 09/23/16 Reported 10/12.5 MG Physical Exam Vital Signs (Last 8hrs): Last 8 Hrs Date Time Temp Pulse Resp B/P (MAP) Pulse Ox O2 Delivery O2 Flow Rate FiO2 11/09/16 10:11 168 74/55 (61) 11/09/16 09:32 36.6 98 18 105/63 (77) 97 Room Air 11/09/16 09:06 36.5 155 24 96 11/09/16 08:36 155 24 97/68 (78) 96 Room Air 11/09/16 07:58 134 11/09/16 07:23 124 11/09/16 07:15 36.5 18 110/73 (85) 97 Room Air General Appearance: Alert and Oriented x3. NAD. Head: Normocephalic Atraumatic. Eyes: PERRLA, EOMI, conjunctiva and sclera clear Neck: Supple. No carotid bruits noted. No JVD. No HJD. Respiratory: Breath sounds clear to auscultation bilaterally. No w/r/r. Cardiovascular: Reg rate and rhythm. S1 and S2 noted. No murmurs, rubs, gallops. PMI non displace. Abdomen: Normal bowel sounds, soft nontender. no abdominal bruits. Extremities: No edema, no clubbing or cyanosis. distal pulses 2/4 bilaterally. Neuro: No focal deficits. Psychiatric: Normal affect. Data Last Resulted 11/09/16 08:58 Last Resulted 11/09/16 08:58 Past 24 Hours Test 11/09/16 08:58 Range/Units Troponin I < 0.015 0-0.045 ng/ml EKG as noted above. Telemetry continued AF, 140 bpm. Assessment & Plan Impression: 65 year old female. 1. New onset atrial fibrillation -Based on vital signs, onset was sometime between 11/08/16 at 2303 when her heart rate was recorded as being 95 bpm, and 11/09/16 when her heart rate was recorded to be 124 bpm. The patient was not on telemetry at that time. EKG confirmed the presence of atrial fibrillation at 833 this morning 11/09/16. 2. History of past occasional short-lived palpitations at home, one ER visit in 2016, at which time no arrhythmia was recorded. Perhaps due to past episodes of supraventricular tachycardia, or perhaps she has a history of paroxysmal atrial fibrillation. 3. History of valvular heart disease, based on echo report performed in [place] in October 2015, the parents the mitral valve suggested history of rheumatic heart disease with mild mitral stenosis, mild aortic stenosis, mild aortic valve regurgitation 4. History of hypertension 5. Dyslipidemia 6. 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 This does not appear to be an acute change in her blood pressure due to the atrial fibrillation as her blood pressure has been at that level since admission. She however does have a history of hypertension for which she is on lisinopril and HCTZ as an outpatient. Given her history of mild mitral stenosis, this does place her at increased risk for left atrial/left atrial appendage thrombus, and cardio embolic stroke with atrial fibrillation. I therefore recommend we try to reestablish sinus rhythm as soon as possible. It appears that perhaps she has only been in the atrial fibrillation for about 3 hours, and a max about 12 hours based on her vital signs, although she may have brief episodes of paroxysmal atrial fibrillation previously gone undetected given her long-standing history of brief palpitations. Another concern is that she underwent right knee total arthroplasty on 10/18/16, and incision and drainage several days ago on 11/07/16. She has therefore had recent orthopedic surgery, and she has been somewhat immobile due to her postoperative pain, and she is at risk for DVT and pulmonary embolism which may be provoking her tachycardia. I discussed her case with Dr. Winters orthopedics. From his standpoint, she was stable from an orthopedic perspective to be anticoagulated with systemic heparin and therefore I'm going to start this for stroke prophylaxis as well as DVT prophylaxis. I would like to stabilize her heart rate prior to proceeding with a lower extremity venous duplex to rule out DVT. I've placed orders for heparin infusion as well as an amiodarone infusion. I think that amiodarone is the best choice given her relatively low blood pressure , and desired to control her heart rate and hopefully her heart rhythm as soon as possible before she can develop left atrial thrombus. An echocardiogram will be performed after her heart rate is better controlled. Patient is to remain on telemetry. As noted, case discussed by telephone with Dr. Winters of orthopedics, and I discussed the case with her nurse at the bedside. Potassium replacement has been ordered already. Her troponin is negative. Matthew Santoro DO ADDENDUM 11/09/16, 10:56 AM: While completing this report, the patient's nurse provided me with an update the patient had converted from atrial fibrillation to sinus rhythm with amiodarone bolus and started of infusion. At this time, we'll continue amiodarone to keep her in regular rhythm. Her blood pressure remains on the lower side, and I've requested a 250 mL bolus of normal saline. Patient is to remain on a child monitor to have a lower extremity venous duplex. In the interim, IV heparin is to be initiated. A chemistry panel and CBC will be performed tomorrow. Echocardiogram to be performed at the bedside. Matthew Santoro DO
--- NOTE | 2016-11-09 11:02 | Infectious Disease Progress Nt ---
Progress Note Date of Service Nov 09, 2016. Subjective Pt evaluation today including: conversation w/ patient, physical exam, chart review, lab review, review of studies, conversation w/ talent development consultant, review of inpatient medication list Recent events reviewed. Patient developed atrial fibrillation, transferred to telemetry, spontaneously converted to sinus rhythm. Patient in no acute distress. No chest pain. No fever. Cultures from the OR growing Staph aureus, sensitivities pending. Tolerating vancomycin without apparent difficulty All Other Systems: Reviewed and Negative Medications Current Inpatient Medications Medications (Trade) Dose Ordered Sig/Dasha Route Start Time Stop Time Status Last Admin Dose Admin Morphine Sulfate (MoRPHine SULFATE INJ) 2 mg Q2H PRN IV 11/07/16 15:30 11/21/16 15:29 11/09/16 00:34 2 MG Celecoxib (CeleBREX CAP) 200 mg BID PO 11/08/16 21:00 12/08/16 20:59 11/09/16 08:44 200 MG Oxybutynin Chloride (Ditropan Tab) 5 mg QAM PO 11/08/16 09:00 12/08/16 08:59 11/09/16 08:43 5 MG Pravastatin Sodium (Pravachol Tab) 40 mg QAM PO 11/08/16 09:00 12/08/16 08:59 11/09/16 08:43 40 MG Calcium/Vitamin D (Caltrate Plus Tab) 1 tab QAM PO 11/08/16 09:00 12/08/16 08:59 11/09/16 08:43 1 TAB Pantoprazole Sodium (Protonix Tab) 40 mg QAM PO 11/08/16 09:00 12/08/16 08:59 11/09/16 08:43 40 MG Oxycodone HCl (Roxicodone Immediate Rel Tab) 1 TABLET FOR PAIN RATING... Q4H PRN PO 11/07/16 20:45 11/21/16 20:44 11/09/16 08:49 10 MG Acetaminophen (Tylenol Tab) 1,000 mg Q8 PO 11/07/16 22:00 12/07/16 21:59 11/09/16 06:06 1,000 MG Magnesium Hydroxide (Milk Of Magnesia Susp) 30 ml Q6H PRN PO 11/07/16 20:45 12/07/16 20:44 Diphenhydramine HCl (Benadryl Cap) 25 mg Q8H PRN PO 11/07/16 20:45 12/07/16 20:44 Diphenhydramine HCl (Benadryl Inj) 25 mg Q8H PRN IV 11/07/16 20:45 12/07/16 20:44 Al Hydrox/Mg Hydrox/Simethicone (Maalox Max Susp) 15 ml Q4H PRN PO 11/07/16 20:45 12/07/16 20:44 Zolpidem Tartrate (Ambien Tab) 5 mg HSZ PRN PO 11/07/16 20:45 12/07/16 20:44 Multivitamins (Multivitamin Tab) 1 tab QAM PO 11/08/16 09:00 12/08/16 08:59 11/08/16 09:42 1 TAB Ondansetron HCl (Zofran Inj) 4 mg Q6H PRN IV 11/07/16 20:45 12/07/16 20:44 Metoclopramide HCl (Reglan Inj) 10 mg Q6H PRN IV 11/07/16 20:45 12/07/16 20:44 Aspirin (Ecotrin Tab) 81 mg BID PO 11/07/16 21:00 12/07/16 20:59 11/09/16 08:43 81 MG Lisinopril (Zestril Tab) 10 mg QAM PO 11/08/16 09:00 12/08/16 08:59 Future Hold 11/08/16 09:41 10 MG Hydrochlorothiazide (Hydrochlorothiazide Tab) 12.5 mg QAM PO 11/08/16 09:00 12/08/16 08:59 Future Hold 11/08/16 09:41 12.5 MG Heparin Sodium (Porcine) (Heparin 10 Unit/ ml 5 ml Flush) 5 ml PRN PRN FLUSH 11/09/16 00:45 12/09/16 00:44 11/09/16 00:39 5 ML Amiodarone HCL/ Dextrose 200 ml @ 33.3 mls/hr Q6H1M IV 11/09/16 10:30 11/09/16 16:30 11/09/16 10:37 33.3 MLS/HR Amiodarone HCL/ Dextrose 200 ml @ 16.7 mls/hr [id number] IV 11/09/16 16:30 12/09/16 16:29 Heparin Sodium/ Dextrose 1 ea Q15M N/A 11/09/16 10:34 12/09/16 10:33 Sodium Chloride 500 ml @ 500 mls/hr Q1H IV 11/09/16 10:30 11/09/16 11:29 UNV Sodium Chloride 250 ml @ 0 mls/hr Q0M IV 11/09/16 11:30 UNV Objective Vital Signs Date Time Temp Pulse Resp B/P (MAP) Pulse Ox O2 Delivery O2 Flow Rate FiO2 11/09/16 10:51 85 84/56 (65) 11/09/16 10:42 150 78/56 (63) 11/09/16 10:35 168 81/58 (66) 11/09/16 10:19 36.8 172 20 81/62 (68) 95 Room Air 11/09/16 10:11 168 74/55 (61) 11/09/16 09:32 36.6 98 18 105/63 (77) 97 Room Air 11/09/16 09:06 36.5 155 24 96 11/09/16 08:36 155 24 97/68 (78) 96 Room Air 11/09/16 07:58 134 11/09/16 07:23 124 11/09/16 07:15 36.5 18 110/73 (85) 97 Room Air 11/09/16 00:30 Room Air 11/08/16 23:03 37.3 95 19 103/55 (71) 98 Room Air 11/08/16 15:25 37.8 94 18 94/54 (67) 99 Room Air 11/08/16 15:15 Room Air 11/08/16 11:41 Room Air 11/08/16 11:36 37.1 100 18 114/74 (87) 98 Room Air Physical Exam General Appearance: WD/WN, no apparent distress Eyes: normal inspection, sclerae normal ENT: normal ENT inspection, hearing grossly normal, pharynx normal Neck: supple, no adenopathy, trachea midline Respiratory/Chest: chest non-tender, lungs clear, normal breath sounds, no respiratory distress Cardiovascular: regular rate, rhythm, no gallop, + systolic murmur Abdomen: normal bowel sounds, non tender, soft, no organomegaly Extremities: non-tender, no calf tenderness Neurologic/Psychiatric: alert, oriented x 3 Skin: normal color, no rash, + pertinent finding (Surgical dressing intact) Lymphatic: no adenopathy Laboratory Results RUN DATE: 11/09/16 [facility] LAB PAGE 1 RUN TIME: 957 Specimen Inquiry PATIENT: JAN ESPAÑA LOC: [facility] U # : [id number] AGE/SX: 65/F ROOM: [facility] REG : 11/07/[address]: Kiran Winters M.D. : 1950 BED: 2 DIS : STATUS: ADM IN TLOC: SPEC #: [id number] LAI: 11/07/16 STATUS: RES REQ #: [id number] RECD: 11/07/[address]: Kiran Winters M.D. SOURCE: INC.SITE ENTR: 11/07/[address] [facility] DR: Dejan Son MD SPDESC: KNEE RIGHT [place],Cybele M.D. ORDERED: AER/JOSE CULTSMR COMMENTS: DISTAL Procedure Result Verified Site GRAM STAIN Final 11/08/16 RESULT MODERATE GRAM POSITIVE COCCI MANY WBCs SEEN MOSTLY PMNs OR AER/JOSE CULT Preliminary 11/09/16 Organism 1 STAPHYLOCOCCUS AUREUS QUANITY MODERATE SENS SENSITIVITY TO FOLLOW 1. STAPHYLOCOCCUS AUREUS Target Route Dose RX AB Cost M.I.C. IQ ------ ----- ------ -- ------ -------- - ------ TRIMET/SULFA S <=0.5/ 9.5 * OXACILLIN S <=0.25 VANCOMYCIN S 1 ERYTHROMYCIN S <=0.5 TETRACYCLINE S <=4 CLINDAMYCIN S <=0.5 DAPTOMYCIN S <=0.5 S = SENSITIVE I = INTERMEDIATE R = RESISTANT Last 24 Hours Test 11/09/16 08:58 11/09/16 10:48 White Blood Count 8.40 K/uL Red Blood Count 3.61 M/uL Hemoglobin 10.3 g/dL Hematocrit 30.7 % Mean Corpuscular Volume 85.0 fL Mean Corpuscular Hemoglobin 28.5 pg Mean Corpuscular Hemoglobin Concent 33.6 g/dl RDW Standard Deviation 43.9 fL RDW Coefficient of Variation 14.1 % Platelet Count 288 K/uL Mean Platelet Volume 9.9 fL Sodium Level 139 mmol/L Potassium Level 3.4 mmol/L Chloride Level 106 mmol/L Carbon Dioxide Level 25 mmol/L Anion Gap 8.0 mmol/L Blood Urea Nitrogen 14 mg/dl Creatinine 0.90 mg/dl Est Creatinine Clear Calc Drug Dose 76.8 ml/min Estimated GFR () 77.8 Estimated GFR (Non- 67.1 BUN/Creatinine Ratio 15.0 Random Glucose 157 mg/dl Calcium Level 9.1 mg/dl Magnesium Level 2.0 mg/dl Troponin I < 0.015 ng/ml Assessment and Plan Early infection of right TKA, now s/p debridement with poly-exchange. Cultures now growing methicillin sensitive Staph aureus. For now, patient will be treated with IV cefazolin, likely to transition to ceftriaxone for outpatient therapy. Will follow.
[2016-11-09 11:14] LABS: BASO % 0.1 %; BASO ABS # 0.01 K/uL (0-0.2); EOS % 2.1 %; HEMATOCRIT 28.5 % (37-47); IG% 0.3 %; LYMPH % 10.9 %; LYMPH ABS # 0.82 K/uL (1.2-3.4); MEAN CELL VOLUME 85.3 fL (80-100); MEAN CORPUSCULAR HEMOGLOBIN 28.1 pg (25-34); MEAN PLATELET VOLUME 9.7 fL (7.4-10.4); MONO % 9.3 %; NEUT % 77.3 %; PLATELET COUNT 262 K/uL (130-400); RED BLOOD COUNT 3.34 M/uL (4.2-5.4)
[2016-11-09 11:20] LABS: COMPLETE YES
[2016-11-09 11:24] LABS: PARTIAL THROMBOPLASTIN RATIO 1.4; PROTHROMBIN TIME (PATIENT) 10.4 SECONDS (9.0-12.0)
[2016-11-09] MEDS ORDERED: SODIUM CHLORIDE 0.9% 250ML 250 ML IV SCH (11:30)
[2016-11-09] MEDS: HEPARIN 25,000 UNIT/500ML D5W 500 ML IV PRN (11:48)
[2016-11-09] MEDS: CEFAZOLIN IV 2,000 MG in DEXTROSE 5% 50ML 50 ML IV SCH ×2 (12:28→21:00)
[2016-11-09] MEDS ORDERED: PERFLUTREN LIPID MICROSPHERE (DEFINITY) IV ONE (13:52)
[2016-11-09] MEDS: ONDANSETRON INJ 2 MG/ML 2 ML VIAL IV PRN (14:46)
--- NOTE | 2016-11-09 15:12 | ECHOCARDIOGRAM REPORT ---
*NOTICE TO RECEIVING [facility] This information is strictly Confidential and protected under [place] law. [place] law prohibits you from making any further disclosure of this information unless further disclosure is expressly permitted by the written consent of the person to whom it pertains or is authorized by law. A general authorization for the release of medical or other information is not sufficient for this purpose. Hospital accepts no responsibility if the information is made available to any other person, INCLUDING THE PATIENT. Interpretation Summary * Name: JAN ESPAÑA Study Date: 11/09/2016 01:20 PM BP: 90/54 mmHg * Patient Location: C.2T\S\S241\S\1 HR: 77 * : 1950 (M/d/yyyy) Gender: Female Height: 65 in * Age: 65 yrs Ethnicity: CA Weight: 238 lb * Ordering Physician: Quincy Santoro * Referring Physician: Kiran Winters * Performed By: Bryce Blakely RCS * * Reason For Study: A-FIB * BSA: 2.1 m2 * The study was technically adequate. * -- Conclusions -- * Sinus rhythm was present during the echocardiogram study. * No regional wall motion abnormalities noted. * The left ventricle is hyperdynamic. * The LV Ejection Fraction = 65-70%. * The left atrium is mildly dilated. * The aortic valve was not well visualized. * Unable to determine the number of cusps. * The Doppler evaluation of the aortic valve was technically adequate. * Mild aortic regurgitation. * Mild valvular aortic stenosis. * There is mild mitral stenosis. * Doppler findings do not suggest pulmonary hypertension. * The aortic root and proximal ascending aorta are normal sized. Procedure Details * A contrast injection of Definity was performed to improve assessment of LV function. * Contrast was injected into an intravenous site in the right arm. * One vial of Definity ultrasound contrast was diluted in normal saline to a total volume of 10 ml. A total of '3' ml of solution was administered during imaging. * Lot # [id number] of Definity utilized for procedure. * Expiration date . * The attending nurse who injected the contrast agent was EDY, RN. * A complete two-dimensional transthoracic echocardiogram was performed (2D, M-mode, Doppler and color flow Doppler). Left Ventricle * The left ventricle is normal in size. * There is normal left ventricular wall thickness. * The left ventricle is hyperdynamic. * Ejection Fraction = 65-70%. * The left ventricular wall motion is normal. * No regional wall motion abnormalities noted. Right Ventricle * The right ventricle is normal size. * The right ventricular systolic function is normal as assessed by tricuspid annular plane systolic excursion (TAPSE) (normal >1.5 cm). Atria * The left atrium is mildly dilated. * Right atrial size is normal. * There is no evidence of atrial septal defect, but resolution does not allow assessment for a patent foramen ovale. Mitral Valve * Calcified mitral apparatus. * There is mild mitral stenosis. * Significant mitral regurgitation is absent. Tricuspid Valve * The tricuspid valve is normal. * There is no tricuspid stenosis. * Significant tricuspid regurgitation is absent. * Doppler findings do not suggest pulmonary hypertension. Aortic Valve * The aortic valve was not well visualized. Unable to determine the number of cusps. The Doppler evaluation of the aortic valve was technically adequate. * Mild valvular aortic stenosis. * Mild aortic regurgitation. Pulmonic Valve * The pulmonary valve is not well seen, but the Doppler examination is normal without significant regurgitation or stenosis. Great Vessels * The aortic root and proximal ascending aorta are normal sized. Pericardium/Pleural * There is no pericardial effusion. Great Vessels * Normal inferior vena cava diameter and respiratory variation suggests normal central venous pressure. * Normal inferior vena cava size and collapsability with sniff indicates a normal right atrial pressure of 3 mmHg Left Ventricular Diastolic Function * Grade I diastolic dysfunction, (abnormal relaxation pattern). MMode 2D Measurements and Calculations IVSd 0.94 cm LVIDd 4.8 cm LVIDs 3.3 cm LVPWd 0.97 cm IVS/LVPW 0.97 FS 31.6 % EDV(Teich) 106.4 ml ESV(Teich) 43.2 ml EF(Teich) 59.4 % EDV(cubed) 109.1 ml ESV(cubed) 35.0 ml EF(cubed) 67.9 % LV mass(C)d 159.0 grams LV mass(C)dI 74.6 grams/m\S\2 SV(Teich) 63.2 ml SI(Teich) 29.7 ml/m\S\2 SV(cubed) 74.1 ml SI(cubed) 34.8 ml/m\S\2 Ao root diam 2.4 cm Ao root area 4.4 cm\S\2 LVOT diam 2.0 cm LVOT area 3.1 cm\S\2 LVAd ap4 28.0 cm\S\2 LVLd ap4 7.8 cm EDV(MOD-sp4) 80.9 ml EDV(sp4-el) 85.1 ml LVAs ap4 15.2 cm\S\2 LVLs ap4 6.8 cm ESV(MOD-sp4) 28.3 ml ESV(sp4-el) 29.1 ml EF(MOD-sp4) 65.0 % EF(sp4-el) 65.8 % LVAd ap2 30.9 cm\S\2 LVLd ap2 8.3 cm EDV(MOD-sp2) 91.7 ml EDV(sp2-el) 97.0 ml LVAs ap2 15.3 cm\S\2 LVLs ap2 7.4 cm ESV(MOD-sp2) 26.5 ml ESV(sp2-el) 27.0 ml EF(MOD-sp2) 71.1 % EF(sp2-el) 72.2 % LVLd %diff 6.2 % EDV(MOD-bp) 89.3 ml LVLs %diff 8.3 % ESV(MOD-bp) 28.1 ml EF(MOD-bp) 68.5 % SV(MOD-sp4) 52.6 ml SI(MOD-sp4) 24.7 ml/m\S\2 SV(MOD-sp2) 65.2 ml SI(MOD-sp2) 30.6 ml/m\S\2 SV(MOD-bp) 61.2 ml SI(MOD-bp) 28.7 ml/m\S\2 SV(sp4-el) 56.0 ml SI(sp4-el) 26.3 ml/m\S\2 SV(sp2-el) 70.0 ml SI(sp2-el) 32.9 ml/m\S\2 Doppler Measurements and Calculations MV E max william 172.6 cm/sec MV A max william 104.1 cm/sec MV E/A 1.7 MV dec time 0.21 sec Ao V2 max 283.9 cm/sec Ao max PG 32.2 mmHg Ao max PG (full) 27.2 mmHg Ao V2 mean 183.5 cm/sec Ao mean PG 16.1 mmHg Ao mean PG (full) 13.5 mmHg Ao V2 VTI 60.1 cm EDA(I,A) 1.4 cm\S\2 EDA(I,D) 1.4 cm\S\2 EDA(V,A) 1.2 cm\S\2 EDA(V,D) 1.2 cm\S\2 LV V1 max PG 5.1 mmHg LV V1 mean PG 2.6 mmHg LV V1 max 112.6 cm/sec LV V1 mean 73.4 cm/sec LV V1 VTI 26.1 cm SV(Ao) 263.4 ml SI(Ao) 123.7 ml/m\S\2 SV(LVOT) 81.4 ml SI(LVOT) 38.2 ml/m\S\2 TR max william 252.2 cm/sec
--- NOTE | 2016-11-09 15:54 | Cardiology Progress Note ---
Cardiology Progress Note Date of Service Nov 09, 2016. Cardiology Progress Note Right lower Ext venous duplex could not be performed due to knee dressings. Continue heparin for now, will reattempt when dressings can be taken down by ortho.\JJB
--- NOTE | 2016-11-09 16:24 | Medical Consult ---
Consultation Date of Consultation: Nov 09, 2016. Attending Physician: Kiran Winters M.D. Reason for Consultation: Tachycardia History of Present Illness 65 year old female with PMH P. Afib, HTN, OA, Tobacco abuse s/p RTKA about 3 weeks ago. she was having worsening pain and redness and drainage over the weekend from the surgical incision site. She had incision and drainage done yesterday. [facility] because this morning developed tachycardia with HR in the 140. Pt said that she has hx of P fib and her rhythm usually convert back to NSR after a few hours. She said that she was never put on anticoagulant. she is only on asa. She having tenderness in the right knee that seems to improve with the pain med. Denies any chest pain, palpitation, fever, dysuria, dizziness and SOB. Stat EKG done showed Afib with RVR. Past Medical/Surgical History Medical Problems: P.Afib HTN OA S/P RTKA Post-operative pain Status: Acute Family History FHx: heart disease Social History Smoking Status: Current Every Day Smoker Marital Status: Housing Status: lives with family Occupation Status: retired Allergies Coded Allergies: No Known Allergies (Verified , 10/18/16) Current Inpatient Medications Current Inpatient Medications Medications (Trade) Dose Ordered Sig/Dasha Route Start Time Stop Time Status Last Admin Dose Admin Morphine Sulfate (MoRPHine SULFATE INJ) 2 mg Q2H PRN IV 11/07/16 15:30 11/21/16 15:29 11/09/16 00:34 2 MG Celecoxib (CeleBREX CAP) 200 mg BID PO 11/08/16 21:00 12/08/16 20:59 11/09/16 08:44 200 MG Oxybutynin Chloride (Ditropan Tab) 5 mg QAM PO 11/08/16 09:00 12/08/16 08:59 11/09/16 08:43 5 MG Pravastatin Sodium (Pravachol Tab) 40 mg QAM PO 11/08/16 09:00 12/08/16 08:59 11/09/16 08:43 40 MG Calcium/Vitamin D (Caltrate Plus Tab) 1 tab QAM PO 11/08/16 09:00 12/08/16 08:59 11/09/16 08:43 1 TAB Pantoprazole Sodium (Protonix Tab) 40 mg QAM PO 11/08/16 09:00 12/08/16 08:59 11/09/16 08:43 40 MG Oxycodone HCl (Roxicodone Immediate Rel Tab) 1 TABLET FOR PAIN RATING... Q4H PRN PO 11/07/16 20:45 11/21/16 20:44 11/09/16 14:02 10 MG Acetaminophen (Tylenol Tab) 1,000 mg Q8 PO 11/07/16 22:00 12/07/16 21:59 11/09/16 14:02 1,000 MG Magnesium Hydroxide (Milk Of Magnesia Susp) 30 ml Q6H PRN PO 11/07/16 20:45 12/07/16 20:44 Diphenhydramine HCl (Benadryl Cap) 25 mg Q8H PRN PO 11/07/16 20:45 12/07/16 20:44 Diphenhydramine HCl (Benadryl Inj) 25 mg Q8H PRN IV 11/07/16 20:45 12/07/16 20:44 Al Hydrox/Mg Hydrox/Simethicone (Maalox Max Susp) 15 ml Q4H PRN PO 11/07/16 20:45 12/07/16 20:44 Zolpidem Tartrate (Ambien Tab) 5 mg HSZ PRN PO 11/07/16 20:45 12/07/16 20:44 Multivitamins (Multivitamin Tab) 1 tab QAM PO 11/08/16 09:00 12/08/16 08:59 11/08/16 09:42 1 TAB Ondansetron HCl (Zofran Inj) 4 mg Q6H PRN IV 11/07/16 20:45 12/07/16 20:44 11/09/16 14:46 4 MG Metoclopramide HCl (Reglan Inj) 10 mg Q6H PRN IV 11/07/16 20:45 12/07/16 20:44 Lisinopril (Zestril Tab) 10 mg QAM PO 11/08/16 09:00 12/08/16 08:59 Future Hold 11/08/16 09:41 10 MG Hydrochlorothiazide (Hydrochlorothiazide Tab) 12.5 mg QAM PO 11/08/16 09:00 12/08/16 08:59 Future Hold 11/08/16 09:41 12.5 MG Heparin Sodium (Porcine) (Heparin 10 Unit/ ml 5 ml Flush) 5 ml PRN PRN FLUSH 11/09/16 00:45 12/09/16 00:44 11/09/16 00:39 5 ML Amiodarone HCL/ Dextrose 200 ml @ 33.3 mls/hr Q6H1M IV 11/09/16 10:30 11/09/16 16:30 11/09/16 10:37 33.3 MLS/HR Amiodarone HCL/ Dextrose 200 ml @ 16.7 mls/hr [id number] IV 11/09/16 16:30 12/09/16 16:29 Cefazolin Sodium 2000 mg/Dextrose 60 ml @ 100 mls/hr Q8H IV 11/09/16 12:00 12/21/16 11:59 11/09/16 12:28 100 MLS/HR Heparin Sodium/ Dextrose 500 ml @ 28 mls/hr [id number] PRN IV 11/09/16 11:30 12/09/16 11:29 11/09/16 11:48 28 MLS/HR Review of Systems Constitutional: No fever, No chills Eyes: No worsening of vision, No eye pain ENT: No hearing loss Respiratory: No cough, No sputum, No shortness of breath Cardiovascular: No chest pain, No orthopnea Abdomen: No pain, No nausea Musculoskeletal: + joint pain, No calf pain Genitourinary - Female: No dysuria Neurologic: No memory loss Psychiatric: No substance abuse Endocrine: No fatigue Hematologic / Lymphatic: No night sweats Integumentary: No rash, No itch Physical Exam Date Time Temp Pulse Resp B/P (MAP) Pulse Ox O2 Delivery O2 Flow Rate FiO2 11/09/16 16:00 Room Air 11/09/16 15:36 36.9 72 20 97/63 (74) 98 Room Air 11/09/16 15:14 78 20 106/66 (79) 95 11/09/16 14:20 74 87/47 (60) 99 Room Air 11/09/16 12:30 82 90/54 (66) 11/09/16 12:00 Room Air 11/09/16 11:49 36.8 82 20 100/68 (79) 98 Room Air 11/09/16 11:37 77 80/55 (63) 11/09/16 11:17 77 81/48 (59) 98 Room Air 11/09/16 11:10 77 94/53 (67) 11/09/16 10:51 85 84/56 (65) 11/09/16 10:42 150 78/56 (63) 11/09/16 10:35 168 81/58 (66) 11/09/16 10:19 36.8 172 20 81/62 (68) 95 Room Air 11/09/16 10:11 168 74/55 (61) 11/09/16 09:32 36.6 98 18 105/63 (77) 97 Room Air 11/09/16 09:06 36.5 155 24 96 11/09/16 08:36 155 24 97/68 (78) 96 Room Air 11/09/16 07:58 134 11/09/16 07:23 124 11/09/16 07:15 36.5 18 110/73 (85) 97 Room Air 11/09/16 00:30 Room Air 11/08/16 23:03 37.3 95 19 103/55 (71) 98 Room Air General Appearance: WD/WN, no apparent distress Head: normocephalic, atraumatic Eyes: PERRL, EOMI ENT: normal ENT inspection, hearing grossly normal Neck: no JVD Respiratory/Chest: no respiratory distress, no accessory muscle use Cardiovascular: no JVD, + irregularly irregular Abdomen/GI: normal bowel sounds, non tender Back: no CVA tenderness Extremities/Musculoskelatal: no calf tenderness Neurologic/Psych: crystal finisher II-XII nml as tested, alert, oriented x 3 Skin: warm/dry, no rash Laboratory Results Last 24 Hours Test 11/09/16 08:58 11/09/16 10:59 White Blood Count 8.40 K/uL 7.50 K/uL Red Blood Count 3.61 M/uL 3.34 M/uL Hemoglobin 10.3 g/dL 9.4 g/dL Hematocrit 30.7 % 28.5 % Mean Corpuscular Volume 85.0 fL 85.3 fL Mean Corpuscular Hemoglobin 28.5 pg 28.1 pg Mean Corpuscular Hemoglobin Concent 33.6 g/dl 33.0 g/dl RDW Standard Deviation 43.9 fL 44.3 fL RDW Coefficient of Variation 14.1 % 14.2 % Platelet Count 288 K/uL 262 K/uL Mean Platelet Volume 9.9 fL 9.7 fL Sodium Level 139 mmol/L Potassium Level 3.4 mmol/L Chloride Level 106 mmol/L Carbon Dioxide Level 25 mmol/L Anion Gap 8.0 mmol/L Blood Urea Nitrogen 14 mg/dl Creatinine 0.90 mg/dl Est Creatinine Clear Calc Drug Dose 76.8 ml/min Estimated GFR () 77.8 Estimated GFR (Non- 67.1 BUN/Creatinine Ratio 15.0 Random Glucose 157 mg/dl Calcium Level 9.1 mg/dl Magnesium Level 2.0 mg/dl Troponin I < 0.015 ng/ml Neutrophils (%) (Auto) 77.3 % Lymphocytes (%) (Auto) 10.9 % Monocytes (%) (Auto) 9.3 % Eosinophils (%) (Auto) 2.1 % Basophils (%) (Auto) 0.1 % Neutrophils # (Auto) 5.79 K/uL Lymphocytes # (Auto) 0.82 K/uL Monocytes # (Auto) 0.70 K/uL Eosinophils # (Auto) 0.16 K/uL Basophils # (Auto) 0.01 K/uL Immature Granulocyte % (Auto) 0.3 % Immature Granulocyte # (Auto) 0.02 K/uL Prothrombin Time 10.4 SECONDS Prothromb Time International Ratio 1.0 Activated Partial Thromboplast Time 35.9 SECONDS Partial Thromboplastin Ratio 1.4 Assessment & Plan S/P Right TKA infection Right TKA done 3 weeks ago with no complication s/p incision and drainage on 11/[address] Winters Finding Christen purulent drainage from the distal aspect of the wound, christen purulent material deep to the arthrotomy and around the prosthesis On IV Ancef, pain control ID on board incentive spirometry Monitor H/H Afib EKG showed afib with HR 144 Will transfer to telemetry will get start CBC, BMP and Mg Consult cardiology case discussed with cardiology Amiodarone drip started by cardiology Will get an echo Continue monitor in telemetry Will defer to cardiology about anticoagulant HTN BP in the low side jayy hold HCTZ and lisinopril Continue monitor BP DVT Px as per ortho CODE STATUS FULL CODE
[2016-11-09] MEDS: AMIODARONE / D5W 200 ML IV SCH (16:30)
[2016-11-09 18:21] LABS: PARTIAL THROMBOPLASTIN RATIO 1.9
[2016-11-10] VITALS (9 sets, daily range): BP systolic 112–158; BP diastolic 63–75; PULSE 64–89; TEMP 36.6–37; O2SAT 93–98
[2016-11-10] MEDS: OXYCODONE HCL IR 5 MG TAB (IMMEDIATE RELEASE) PO PRN ×4 (02:06→18:44)
[2016-11-10] MEDS: ACETAMINOPHEN 500 MG TAB PO SCH ×4 (02:07→20:53)
[2016-11-10] MEDS: CEFAZOLIN IV 2,000 MG in DEXTROSE 5% 50ML 50 ML IV SCH ×4 (04:12→20:56)
[2016-11-10] MEDS: AMIODARONE / D5W 200 ML IV SCH ×2 (04:20→04:29)
[2016-11-10] MEDS: HEPARIN 25,000 UNIT/500ML D5W 500 ML IV PRN ×2 (05:12→23:53)
--- NOTE | 2016-11-10 07:05 | Orthopedic Progress Note ---
Orthopedic Progress Note Date of Service Nov 10, 2016. Subjective Post OP Day: 3 Reports: feeling well, calf pain, pain controlled w PO medications, Denies: complaints, chest pain, SOB, nausea / vomiting, light headedness Additional Notes: Patient still notes some calf pain when trying to move her leg. Objective N/V intact, capillary refill less than 2 sec., dressing C/D/I, A&O x3, toes mobile Mild calf pain with cotton test. Doppler not performed due to dressing. Date Time Temp Pulse Resp B/P (MAP) Pulse Ox O2 Delivery O2 Flow Rate FiO2 11/10/16 04:00 36.9 82 16 118/67 (84) 95 Room Air 11/10/16 04:00 Room Air 11/10/16 00:00 Room Air 11/09/16 23:01 37.1 80 16 115/71 (86) 98 Room Air 11/09/16 20:01 36.8 80 20 149/78 (101) 96 Room Air 11/09/16 20:00 Room Air 11/09/16 16:00 Room Air 11/09/16 15:36 36.9 72 20 97/63 (74) 98 Room Air 11/09/16 15:14 78 20 106/66 (79) 95 11/09/16 14:20 74 87/47 (60) 99 Room Air 11/09/16 12:30 82 90/54 (66) 11/09/16 12:00 Room Air 11/09/16 11:49 36.8 82 20 100/68 (79) 98 Room Air 11/09/16 11:37 77 80/55 (63) 11/09/16 11:17 77 81/48 (59) 98 Room Air 11/09/16 11:10 77 94/53 (67) 11/09/16 10:51 85 84/56 (65) 11/09/16 10:42 150 78/56 (63) 11/09/16 10:35 168 81/58 (66) 11/09/16 10:19 36.8 172 20 81/62 (68) 95 Room Air 11/09/16 10:11 168 74/55 (61) 11/09/16 09:32 36.6 98 18 105/63 (77) 97 Room Air 11/09/16 09:06 36.5 155 24 96 11/09/16 08:36 155 24 97/68 (78) 96 Room Air 11/09/16 07:58 134 11/09/16 07:23 124 11/09/16 07:15 36.5 18 110/73 (85) 97 Room Air Laboratory Results 24 Hours: Test 11/09/16 08:58 11/09/16 10:59 11/10/16 04:44 Hematocrit 30.7 % 28.5 % Hemoglobin 10.3 g/dL 9.4 g/dL White Blood Count 7.50 K/uL Red Blood Count 3.34 M/uL Mean Corpuscular Volume 85.3 fL Mean Corpuscular Hemoglobin 28.1 pg Mean Corpuscular Hemoglobin Concent 33.0 g/dl Platelet Count 262 K/uL Mean Platelet Volume 9.7 fL Neutrophils (%) (Auto) 77.3 % Lymphocytes (%) (Auto) 10.9 % Monocytes (%) (Auto) 9.3 % Eosinophils (%) (Auto) 2.1 % Basophils (%) (Auto) 0.1 % Neutrophils # (Auto) 5.79 K/uL Lymphocytes # (Auto) 0.82 K/uL Monocytes # (Auto) 0.70 K/uL Eosinophils # (Auto) 0.16 K/uL Basophils # (Auto) 0.01 K/uL Prothromb Time International Ratio 1.0 Prothrombin Time 10.4 SECONDS Assessment & Plan Assessment: POD #2 I & D of right knee with poly exchange S/P Right TKA Plan: DVT Prophylaxis - ASA Discharge - would like [facility] PT/OT cultures growing MSSA On Ancef, likely to go home with ceftriaxone Appreciate ID help Inhouse Planning Pain Management: PO Tylenol, Oxy IR DVT Prophylaxis: TEDs, SCDs, ASA Discharge Planning Discharge Planning: uncertain DVT Prophylaxis: TEDs, ASA Therapy: Physical Therapy
[2016-11-10 07:36] LABS: HEMATOCRIT 28.3 % (37-47); MEAN CELL VOLUME 85.8 fL (80-100); MEAN CORPUSCULAR HEMOGLOBIN 27.6 pg (25-34); MEAN CORPUSCULAR HGB CONC 32.2 g/dl (32-36); MEAN PLATELET VOLUME 9.7 fL (7.4-10.4); PLATELET COUNT 278 K/uL (130-400)
[2016-11-10 07:51] LABS: PARTIAL THROMBOPLASTIN RATIO 1.9
[2016-11-10 08:11] LABS: CREATININE 0.73 mg/dl (0.60-1.20); POTASSIUM 3.7 mmol/L (3.5-5.1)
[2016-11-10] MEDS: MULTIVITAMIN TAB PO SCH (08:12)
[2016-11-10] MEDS: CeleBREX 200 MG CAP PO SCH ×2 (08:13→20:52)
[2016-11-10] MEDS: PRAVASTATIN SOD 20 MG TAB PO SCH (08:13)
[2016-11-10] MEDS: CALCIUM 600MG + VIT D 400 IU TAB PO SCH (08:13)
[2016-11-10] MEDS: PANTOprazole SOD 40 MG TAB PO SCH (08:13)
[2016-11-10] MEDS: OXYBUTYNIN CHLORIDE 5 MG TAB PO SCH (08:13)
[2016-11-10 08:22] LABS: ALB/GLOB RATIO 0.6 (0.9-2); THYROID STIMULATING HORMONE 0.407 uIu/ml (0.300-4.500)
--- NOTE | 2016-11-10 11:27 | DIAGNOSTIC IMAGING REPORT ---
ULTRASOUND RIGHT LOWER EXTREMITY VENOUS CLINICAL HISTORY: Right leg swelling. Knee infection. COMPARISON STUDY: No priors. TECHNIQUE: Real-time, grayscale, and color Doppler sonography of the deep veins of the right lower extremity was performed from the inguinal crease to the calf. Compression and augmentation were utilized. FINDINGS: There is no sonographic evidence of deep venous thrombosis identified in the right lower extremity. The common femoral, superficial femoral, and popliteal veins are patent and normally compressible. The greater saphenous vein and the profunda femoris vein at the junction with the common femoral vein are clear. The visualized calf veins are patent. IMPRESSION: There is no sonographic evidence of deep venous thrombosis identified in the right lower extremity. Electronically signed by: Hans Stewart M.D. 11/10/2016 11:26 AM Dictated Date/Time: 11/10/2016 11:25 AM
[2016-11-10] MEDS ORDERED: METOPROLOL TARTRATE 25 MG TAB PO ONE (12:50)
--- NOTE | 2016-11-10 12:59 | Cardiology Follow-Up ---
Subjective General Date of Service: Nov 10, 2016. Chief Complaint: follow up atrial fibrillation Pt evaluation today including: conversation w/ patient, physical exam History of Present Illness The patient is a 65 year old female seen in follow-up. Patient remained in sinus rhythm overnight last night. She had converted from atrial fibrillation with rapid ventricular rate to sinus rhythm at just after 10 AM on 11/09/16 with a 1.5 second conversion pause. The conversion took place while she was on IV amiodarone. She is remained on IV amiodarone infusion and IV heparin overnight. Her hemoglobin and blood pressure are stable. A lower extremity venous duplex was attempted again this morning and this time was completed successfully with no evidence of right lower extremity DVT. Echocardiogram performed yesterday revealed stable valvular heart disease, likely underlying rheumatic heart disease with mild aortic valve stenosis, mild aortic regurgitation, mild mitral stenosis. Allergies Coded Allergies: No Known Allergies (Verified , 10/18/16) Social History Smoking Status: Current Every Day Smoker Hx Tobacco Use In Past Year?: Yes Hx Alcohol Use - Type And Amou: No Hx Substance Use - Type And Am: No Problem List Medical Problems: (1) Post-operative pain Status: Acute Physical Exam Vital Signs Last Vital Signs Documentation Date Time Temp Pulse Resp B/P (MAP) Pulse Ox O2 Delivery O2 Flow Rate FiO2 11/10/16 12:29 36.6 86 18 115/69 (84) 95 11/10/16 12:00 Room Air 11/08/16 00:35 2.0 Physical Exam Constitutional: Level of Distress: NAD Head: normocephalic ENMT: normal ENT inspection Neck: supple, trachea midline, no masses Lungs: Auscultation: no wheezing, no rales/crackles, no rhonchi Cardiovascular: Heart Auscultation: RRR, pertinent finding (02/25 SM) Abdomen: Inspection & Palpation: soft, non-distended, no tenderness, guarding & rebound Extremities: no edema, pertinent finding (no LLE edema) Neurologic: Gait & Station: pertinent finding (no focal neuro deficits ) Assessment and Plan Assessment and Plan Impression: 65 year old female. 1. New onset atrial fibrillation, then conversion to SR on IV amiodarone . Based on vital signs obtained prior to EKG and initiation of telemetry was in AF sometime around 3.5-12 hours. Converted shortly after initiation of IV amiodarone. 2. History of past occasional short-lived palpitations at home, one ER visit in 2016, at which time no arrhythmia was recorded. Perhaps due to past episodes of supraventricular tachycardia, or perhaps she has a history of paroxysmal atrial fibrillation. 3. History of valvular heart disease, based on echo report performed in [place] in October 2015, the parents the mitral valve suggested history of rheumatic heart disease with mild mitral stenosis, mild aortic stenosis, mild aortic valve regurgitation- unchanged on repeat echo this admission 4. History of hypertension 5. Dyslipidemia 6. 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 Will DC IV amiodarone. Start low dose metoprolol. Continue heparin. Check CTA PE protocol. Discussed with pt. off unit on energy administrator. Matthew Santoro DO Laboratory Results Last 24 Hours Test 11/09/16 17:52 11/10/16 07:03 Activated Partial Thromboplast Time 49.0 SECONDS 49.9 SECONDS Partial Thromboplastin Ratio 1.9 1.9 White Blood Count 6.00 K/uL Red Blood Count 3.30 M/uL Hemoglobin 9.1 g/dL Hematocrit 28.3 % Mean Corpuscular Volume 85.8 fL Mean Corpuscular Hemoglobin 27.6 pg Mean Corpuscular Hemoglobin Concent 32.2 g/dl RDW Standard Deviation 44.6 fL RDW Coefficient of Variation 14.2 % Platelet Count 278 K/uL Mean Platelet Volume 9.7 fL Sodium Level 140 mmol/L Potassium Level 3.7 mmol/L Chloride Level 105 mmol/L Carbon Dioxide Level 28 mmol/L Anion Gap 7.0 mmol/L Blood Urea Nitrogen 14 mg/dl Creatinine 0.73 mg/dl Est Creatinine Clear Calc Drug Dose 95.1 ml/min Estimated GFR () 100.2 Estimated GFR (Non- 86.4 BUN/Creatinine Ratio 19.0 Random Glucose 117 mg/dl Calcium Level 9.0 mg/dl Total Bilirubin 0.2 mg/dl Aspartate Amino Transf (AST/SGOT) 24 U/L Alanine Aminotransferase (ALT/SGPT) 33 U/L Alkaline Phosphatase 69 U/L Total Protein 5.9 gm/dl Albumin 2.2 gm/dl Globulin 3.7 gm/dl Albumin/Globulin Ratio 0.6 Thyroid Stimulating Hormone (TSH) 0.407 uIu/ml
[2016-11-10] MEDS ORDERED: OPTIRAY 320 IV PRN (13:15)
--- NOTE | 2016-11-10 13:53 | Progress Note ---
Internal Med Progress Note Date of Service: Nov 10, 2016. Provider Documentation: SUBJECTIVE: The patient was seen and examined Complained of infrequent palpitations for a while Noted to Have another episode Noted to have AF with RVR Clinically asymptomatic now and in SR OBJECTIVE: Vital Signs-as noted below Exam: General-No distress at rest Eyes-Normal ENT-normal Neck-supple Lungs-clear ro auscultate bilaterally Heart-Regular,no murmur appreciated Abdomen-Benign,no masses,bowel sound present Extremities-Trace edema bilaterally S/P Right Knee surgeruy Wound VAC in place and does not show any infection Neuro-AAOx3 Lab data as noted below. ASSESSMENT & PLAN: Paroxysmal AF Can be a New onset atrial fibrillation, Converted to SR on IV amiodarone 11/09/16. and later on Discontinued Continue BB Has been on Heparin Appreciate cardiology input ECHO:: * Sinus rhythm was present during the echocardiogram study. * No regional wall motion abnormalities noted. * The left ventricle is hyperdynamic. * The LV Ejection Fraction = 65-70%. * The left atrium is mildly dilated. * The aortic valve was not well visualized. * Unable to determine the number of cusps. * The Doppler evaluation of the aortic valve was technically adequate. * Mild aortic regurgitation. * Mild valvular aortic stenosis. Clinically stable now US of the Legs -negative for DVT Will get CTA to r/o PE S/P Right TKA infection Right TKA done 3 weeks ago with no complication s/p incision and drainage on 11/[address] Winters Finding Christen purulent drainage from the distal aspect of the wound, christen purulent material deep to the arthrotomy and around the prosthesis On IV Ancef, pain control ID on board-input appreciated Wound VAC is placed HTN BP in the low side On hold HCTZ and lisinopril Continue monitor BP-stable DVT Px as per ortho CODE STATUS FULL CODE Vital Signs: Date Time Temp Pulse Resp B/P (MAP) Pulse Ox O2 Delivery O2 Flow Rate FiO2 11/10/16 12:29 36.6 86 18 115/69 (84) 95 11/10/16 12:15 36.6 89 18 115/69 (84) 98 11/10/16 12:00 Room Air 11/10/16 08:20 Room Air 11/10/16 08:00 36.9 76 18 133/63 (86) 96 Room Air 11/10/16 04:00 36.9 82 16 118/67 (84) 95 Room Air 11/10/16 04:00 Room Air 11/10/16 00:00 Room Air 11/09/16 23:01 37.1 80 16 115/71 (86) 98 Room Air 11/09/16 20:01 36.8 80 20 149/78 (101) 96 Room Air 11/09/16 20:00 Room Air 11/09/16 16:00 Room Air 11/09/16 15:36 36.9 72 20 97/63 (74) 98 Room Air 11/09/16 15:14 78 20 106/66 (79) 95 11/09/16 14:20 74 87/47 (60) 99 Room Air Lab Results: Results Past 24 Hours Test 11/09/16 17:52 11/10/16 07:03 Range/Units Activated Partial Thromboplast Time 49.0 49.9 21.0-31.0 SECONDS Partial Thromboplastin Ratio 1.9 1.9 White Blood Count 6.00 4.8-10.8 K/uL Red Blood Count 3.30 4.2-5.4 M/uL Hemoglobin 9.1 12.0-16.0 g/dL Hematocrit 28.3 37-47 % Mean Corpuscular Volume 85.8 80-100 fL Mean Corpuscular Hemoglobin 27.6 25-34 pg Mean Corpuscular Hemoglobin Concent 32.2 32-36 g/dl RDW Standard Deviation 44.6 36.4-46.3 fL RDW Coefficient of Variation 14.2 11.5-14.5 % Platelet Count 278 130-400 K/uL Mean Platelet Volume 9.7 7.4-10.4 fL Sodium Level 140 136-145 mmol/L Potassium Level 3.7 3.5-5.1 mmol/L Chloride Level 105 98-107 mmol/L Carbon Dioxide Level 28 21-32 mmol/L Anion Gap 7.0 3-11 mmol/L Blood Urea Nitrogen 14 7-18 mg/dl Creatinine 0.73 0.60-1.20 mg/dl Est Creatinine Clear Calc Drug Dose 95.1 ml/min Estimated GFR () 100.2 Estimated GFR (Non- 86.4 BUN/Creatinine Ratio 19.0 10-20 Random Glucose 117 70-99 mg/dl Calcium Level 9.0 8.5-10.1 mg/dl Total Bilirubin 0.2 0.2-1 mg/dl Aspartate Amino Transf (AST/SGOT) 24 15-37 U/L Alanine Aminotransferase (ALT/SGPT) 33 12-78 U/L Alkaline Phosphatase 69 45-117 U/L Total Protein 5.9 6.4-8.2 gm/dl Albumin 2.2 3.4-5.0 gm/dl Globulin 3.7 2.5-4.0 gm/dl Albumin/Globulin Ratio 0.6 0.9-2 Thyroid Stimulating Hormone (TSH) 0.407 0.300-4.500 uIu/ml
--- NOTE | 2016-11-10 14:05 | Clinical Documentation Query ---
CLINICAL DOCUMENTATION QUERY Dr. DECKER, In your clinical opinion is this patient being managed for: ( + ) Acute kidney failure, treated and resolved ( ) Not Agree ( ) Other explanation of clinical findings (Please Explain) ( ) Unable to determine (Please Define) ( ) Need to Discuss The medical record reflects the following clinical findings, treatment, and risk factors. Clinical Indicators:65 yo female presenting with R knee infection. Initial BUN 28/Cr 1.4 which as trended down to Cr 0.73 Treatment:IV fluids, monitor PRP's Risk Factors: age, Knee infection, HTN, valvular heart disease Please clarify and document your clinical opinion in the progress notes and discharge summary. Terms such as "probable", "suspected", "likely", "questionable", "possible", or "still to be ruled out" are acceptable. IF IN AGREEMENT, YOU MUST DOCUMENT ABOVE DIAGNOSTIC STATEMENT IN DAILY PROGRESS NOTES AND DISCHARGE SUMMARY. This document is not part of the patient's record. Thank You, Bere Moody RN [phone]
--- NOTE | 2016-11-10 14:35 | DIAGNOSTIC IMAGING REPORT ---
CT ANGIOGRAM OF THE CHEST CLINICAL HISTORY: Atypical chest pain. COMPARISON STUDY: Chest x-ray dated 09/23/2016. TECHNIQUE: Following the IV administration of 89 cc of Optiray 320, CT angiogram of the chest was performed from the upper abdomen to the thoracic inlet utilizing the pulmonary embolus protocol. Images are reviewed in the axial, sagittal, and coronal planes. 3-D MIPS images are created and assessed. IV contrast was administered without complication. A dose lowering technique was utilized adhering to the principles of ALARA. CT DOSE: 644.93 mGycm FINDINGS: Thyroid: Imaged portions of the thyroid gland are normal in size and attenuation. Thoracic aorta: The thoracic aorta is normal in caliber and demonstrates standard 3-vessel arch anatomy. No dissection is seen. Pulmonary vasculature: The pulmonary trunk is normal in caliber. There are no filling defects identified in main, lobar, or segmental pulmonary branches to suggest pulmonary embolus. Heart: The heart is top normal in size and without pericardial effusion. Lungs and pleural spaces: There are faint patchy groundglass opacities at the right lung base as well as within the inferior right upper lobe trace right pleural effusion is noted. This likely represents a mild infectious/inflammatory pneumonitis. The left lung is clear. The trachea and central airways are patent. Mediastinum: There is no mediastinal lymphadenopathy. Yesi: Clear. Axillae: There is no axillary lymphadenopathy. Upper abdomen: There is evidence of hepatic steatosis. Cholestatic clips are noted. Postoperative change is also seen in the stomach. Skeletal structures: Skeletal structures are osteopenic. Mild degenerative change is noted in the thoracic spine. No lytic or blastic bony lesions are seen. There is evidence of a remote right clavicular fracture. IMPRESSION: 1. There is no evidence of pulmonary embolus in the main, lobar, or segmental pulmonary arteries. 2. Findings suggest a mild infectious/inflammatory pneumonitis in the right lung with trace right pleural effusion. Clinical correlation will be required. 3. Hepatic steatosis. 4. Postoperative change is noted in the stomach. Electronically signed by: Hans Stewart M.D. 11/10/2016 2:34 PM Dictated Date/Time: 11/10/2016 2:29 PM
--- NOTE | 2016-11-10 20:52 | Infectious Disease Progress Nt ---
Progress Note Date of Service Nov 10, 2016. Subjective Pt evaluation today including: conversation w/ patient, physical exam, chart review, lab review, review of studies, conversation w/ consumer services consultant, review of inpatient medication list Patient with recurrent bouts of AFib. Hip pain controlled. No fever. Tolerating Ancef without apparent difficulty. All Other Systems: Reviewed and Negative Medications Current Inpatient Medications Medications (Trade) Dose Ordered Sig/Dasha Route Start Time Stop Time Status Last Admin Dose Admin Morphine Sulfate (MoRPHine SULFATE INJ) 2 mg Q2H PRN IV 11/07/16 15:30 11/21/16 15:29 11/09/16 20:12 2 MG Celecoxib (CeleBREX CAP) 200 mg BID PO 11/08/16 21:00 12/08/16 20:59 11/10/16 08:13 200 MG Oxybutynin Chloride (Ditropan Tab) 5 mg QAM PO 11/08/16 09:00 12/08/16 08:59 11/10/16 08:13 5 MG Pravastatin Sodium (Pravachol Tab) 40 mg QAM PO 11/08/16 09:00 12/08/16 08:59 11/10/16 08:13 40 MG Calcium/Vitamin D (Caltrate Plus Tab) 1 tab QAM PO 11/08/16 09:00 12/08/16 08:59 11/10/16 08:13 1 TAB Pantoprazole Sodium (Protonix Tab) 40 mg QAM PO 11/08/16 09:00 12/08/16 08:59 11/10/16 08:13 40 MG Oxycodone HCl (Roxicodone Immediate Rel Tab) 1 TABLET FOR PAIN RATING... Q4H PRN PO 11/07/16 20:45 11/21/16 20:44 11/10/16 18:44 10 MG Acetaminophen (Tylenol Tab) 1,000 mg Q8 PO 11/07/16 22:00 12/07/16 21:59 11/10/16 14:39 1,000 MG Magnesium Hydroxide (Milk Of Magnesia Susp) 30 ml Q6H PRN PO 11/07/16 20:45 12/07/16 20:44 Diphenhydramine HCl (Benadryl Cap) 25 mg Q8H PRN PO 11/07/16 20:45 12/07/16 20:44 Diphenhydramine HCl (Benadryl Inj) 25 mg Q8H PRN IV 11/07/16 20:45 12/07/16 20:44 Al Hydrox/Mg Hydrox/Simethicone (Maalox Max Susp) 15 ml Q4H PRN PO 11/07/16 20:45 12/07/16 20:44 11/09/16 20:51 15 ML Zolpidem Tartrate (Ambien Tab) 5 mg HSZ PRN PO 11/07/16 20:45 12/07/16 20:44 Multivitamins (Multivitamin Tab) 1 tab QAM PO 11/08/16 09:00 12/08/16 08:59 11/10/16 08:12 1 TAB Ondansetron HCl (Zofran Inj) 4 mg Q6H PRN IV 11/07/16 20:45 12/07/16 20:44 11/09/16 14:46 4 MG Metoclopramide HCl (Reglan Inj) 10 mg Q6H PRN IV 11/07/16 20:45 12/07/16 20:44 Lisinopril (Zestril Tab) 10 mg QAM PO 11/08/16 09:00 12/08/16 08:59 Future Hold 11/08/16 09:41 10 MG Hydrochlorothiazide (Hydrochlorothiazide Tab) 12.5 mg QAM PO 11/08/16 09:00 12/08/16 08:59 Future Hold 11/08/16 09:41 12.5 MG Heparin Sodium (Porcine) (Heparin 10 Unit/ ml 5 ml Flush) 5 ml PRN PRN FLUSH 11/09/16 00:45 12/09/16 00:44 11/09/16 00:39 5 ML Cefazolin Sodium 2000 mg/Dextrose 60 ml @ 100 mls/hr Q8H IV 11/09/16 12:00 12/21/16 11:59 11/10/16 12:42 100 MLS/HR Heparin Sodium/ Dextrose 500 ml @ 28 mls/hr [id number] PRN IV 11/09/16 11:30 12/09/16 11:29 11/10/16 05:12 28 MLS/HR Metoprolol Tartrate (Lopressor Tab) 12.5 mg BID PO 11/10/16 21:00 12/10/16 20:59 Ioversol (Optiray 320) 125 ml UD PRN IV 11/10/16 13:15 11/14/16 13:14 Objective Vital Signs Date Time Temp Pulse Resp B/P (MAP) Pulse Ox O2 Delivery O2 Flow Rate FiO2 11/10/16 18:50 36.9 73 19 112/75 (87) 98 Room Air 11/10/16 16:00 96 Room Air 11/10/16 15:31 37.0 80 19 116/69 (85) 96 Room Air 11/10/16 12:29 36.6 86 18 115/69 (84) 95 11/10/16 12:15 36.6 89 18 115/69 (84) 98 11/10/16 12:00 Room Air 11/10/16 08:20 Room Air 11/10/16 08:00 36.9 76 18 133/63 (86) 96 Room Air 11/10/16 04:00 36.9 82 16 118/67 (84) 95 Room Air 11/10/16 04:00 Room Air 11/10/16 00:00 Room Air 11/09/16 23:01 37.1 80 16 115/71 (86) 98 Room Air Physical Exam General Appearance: WD/WN, no apparent distress Eyes: normal inspection, EOMI, sclerae normal ENT: normal ENT inspection, pharynx normal Neck: supple, no adenopathy, trachea midline Respiratory/Chest: chest non-tender, lungs clear, normal breath sounds, no respiratory distress Cardiovascular: regular rate, rhythm, no gallop, no murmur Abdomen: normal bowel sounds, non tender, soft, no organomegaly Extremities: non-tender, no calf tenderness Neurologic/Psychiatric: alert, oriented x 3 Skin: normal color, no rash, + pertinent finding ( Wound VAC in place left hip ) Laboratory Results RUN DATE: 11/10/16 [facility] LAB PAGE 1 RUN TIME: 1326 Specimen Inquiry PATIENT: JAN ESPAÑA LOC: Stephan U # : [id number] AGE/SX: 65/F ROOM: 41 REG : 11/07/[address]: Kiran Winters M.D. : 1950 BED: 1 DIS : STATUS: ADM IN TLOC: SPEC #: [id number] LAI: 11/07/16 STATUS: RES REQ #: [id number] RECD: 11/07/[address]: Kiran Winters M.D. SOURCE: INC.SITE ENTR: 11/07/16 [facility] DR: Dejan Son MD [facility] KNEE RIGHT Debi England M.D. ORDERED: AER/JOSE CULTSMR COMMENTS: DISTAL Procedure Result Verified Site GRAM STAIN Final 11/08/16-0646 RESULT MODERATE GRAM POSITIVE COCCI MANY WBCs SEEN MOSTLY PMNs OR AER/JOSE CULT Preliminary 11/10/16-1326 Organism 1 STAPHYLOCOCCUS AUREUS QUANITY MODERATE SENS SENSITIVITY TO FOLLOW ANAS NO ANAEROBES ISOLATED. 1. STAPHYLOCOCCUS AUREUS Target Route Dose RX AB Cost M.I.C. IQ ------ ----- ------ -- ------ -------- - ------ TRIMET/SULFA S <=0.5/ 9.5 * OXACILLIN S <=0.25 VANCOMYCIN S 1 ERYTHROMYCIN S <=0.5 TETRACYCLINE S <=4 CLINDAMYCIN S <=0.5 DAPTOMYCIN S <=0.5 S = SENSITIVE I = INTERMEDIATE R = RESISTANT END OF REPORT Last 24 Hours Test 11/10/16 07:03 White Blood Count 6.00 K/uL Red Blood Count 3.30 M/uL Hemoglobin 9.1 g/dL Hematocrit 28.3 % Mean Corpuscular Volume 85.8 fL Mean Corpuscular Hemoglobin 27.6 pg Mean Corpuscular Hemoglobin Concent 32.2 g/dl RDW Standard Deviation 44.6 fL RDW Coefficient of Variation 14.2 % Platelet Count 278 K/uL Mean Platelet Volume 9.7 fL Activated Partial Thromboplast Time 49.9 SECONDS Partial Thromboplastin Ratio 1.9 Sodium Level 140 mmol/L Potassium Level 3.7 mmol/L Chloride Level 105 mmol/L Carbon Dioxide Level 28 mmol/L Anion Gap 7.0 mmol/L Blood Urea Nitrogen 14 mg/dl Creatinine 0.73 mg/dl Est Creatinine Clear Calc Drug Dose 95.1 ml/min Estimated GFR () 100.2 Estimated GFR (Non- 86.4 BUN/Creatinine Ratio 19.0 Random Glucose 117 mg/dl Calcium Level 9.0 mg/dl Total Bilirubin 0.2 mg/dl Aspartate Amino Transf (AST/SGOT) 24 U/L Alanine Aminotransferase (ALT/SGPT) 33 U/L Alkaline Phosphatase 69 U/L Total Protein 5.9 gm/dl Albumin 2.2 gm/dl Globulin 3.7 gm/dl Albumin/Globulin Ratio 0.6 Thyroid Stimulating Hormone (TSH) 0.407 uIu/ml Assessment and Plan Early infection of right TKA, now s/p debridement with poly-exchange. Cultures now growing methicillin sensitive Staph aureus. For now, patient will be treated with IV cefazolin, likely to transition to ceftriaxone for outpatient therapy. Will follow.
[2016-11-10] MEDS: METOPROLOL TARTRATE 25 MG TAB PO SCH (20:53)
[2016-11-10] MEDS: MoRPHine SULFATE 2 MG/ML CARP IV PRN (22:18)
[2016-11-11 04:00] VITALS: BP 128/73; PULSE 74; TEMP 37; O2SAT 96
[2016-11-11] MEDS: CEFAZOLIN IV 2,000 MG in DEXTROSE 5% 50ML 50 ML IV SCH ×3 (04:17→21:52)
[2016-11-11] MEDS: MoRPHine SULFATE 2 MG/ML CARP IV PRN ×2 (04:17→08:19)
[2016-11-11] MEDS: ACETAMINOPHEN 500 MG TAB PO SCH ×4 (06:28→23:33)
[2016-11-11] MEDS: OXYCODONE HCL IR 5 MG TAB (IMMEDIATE RELEASE) PO PRN ×2 (06:28→21:53)
[2016-11-11 07:42] VITALS: BP 138/76; PULSE 73; TEMP 36.9; O2SAT 95
[2016-11-11] MEDS: CeleBREX 200 MG CAP PO SCH ×2 (08:12→21:52)
[2016-11-11] MEDS: MULTIVITAMIN TAB PO SCH (08:12)
[2016-11-11] MEDS: CALCIUM 600MG + VIT D 400 IU TAB PO SCH (08:13)
[2016-11-11] MEDS: PANTOprazole SOD 40 MG TAB PO SCH (08:14)
[2016-11-11] MEDS: METOPROLOL TARTRATE 25 MG TAB PO SCH ×2 (08:14→21:52)
[2016-11-11] MEDS: OXYBUTYNIN CHLORIDE 5 MG TAB PO SCH (08:15)
[2016-11-11] MEDS: PRAVASTATIN SOD 20 MG TAB PO SCH (08:15)
--- NOTE | 2016-11-11 10:42 | Cardiology Follow-Up ---
Subjective General Date of Service: Nov 11, 2016. Chief Complaint: follow up atrial fibrillation Pt evaluation today including: conversation w/ patient, physical exam History of Present Illness The patient is a 65 year old female seen in follow up. Patient feels well. She denies any chest discomfort or shortness of breath. Telemetry reveals no additional atrial fibrillation since she had initially converted with amiodarone [address] angiogram yesterday was negative for pulmonary embolus. Allergies Coded Allergies: No Known Allergies (Verified , 10/18/16) Social History Smoking Status: Current Every Day Smoker Hx Tobacco Use In Past Year?: Yes Hx Alcohol Use - Type And Amou: No Hx Substance Use - Type And Am: No Problem List Medical Problems: (1) Post-operative pain Status: Acute Physical Exam Vital Signs Last Vital Signs Documentation Date Time Temp Pulse Resp B/P (MAP) Pulse Ox O2 Delivery O2 Flow Rate FiO2 11/11/16 08:00 Room Air 11/11/16 07:42 36.9 73 18 138/76 (96) 95 11/08/16 00:35 2.0 Physical Exam Constitutional: Level of Distress: NAD Head: normocephalic ENMT: normal ENT inspection Neck: supple, trachea midline, no masses Lungs: Auscultation: no wheezing, no rales/crackles, no rhonchi Cardiovascular: Heart Auscultation: RRR, pertinent finding (1/6 SM) Abdomen: Inspection & Palpation: soft, non-distended, no tenderness, guarding & rebound Extremities: no edema, pertinent finding (no LLE edema) Neurologic: Gait & Station: pertinent finding (no focal neuro deficits ) Assessment and Plan Assessment and Plan Impression: 65 year old female. 1. New onset atrial fibrillation, then conversion to SR on IV amiodarone . Based on vital signs obtained prior to EKG and initiation of telemetry was in AF sometime around 3.5-12 hours. Converted shortly after initiation of IV amiodarone. 2. History of past occasional short-lived palpitations at home, one ER visit in 2015, at which time no arrhythmia was recorded. Perhaps due to past episodes of supraventricular tachycardia, or perhaps she has a history of paroxysmal atrial fibrillation. 3. History of valvular heart disease, based on echo report performed in [place] in October 2015, the parents the mitral valve suggested history of rheumatic heart disease with mild mitral stenosis, mild aortic stenosis, mild aortic valve regurgitation- unchanged on repeat echo this admission 4. History of hypertension 5. Dyslipidemia 6. 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 Likely had atrial fibrillation due to high catecholamines, perhaps related to infection. She does however have a long-standing history of episodic palpitations and is difficult to tell if her chronic palpitations are medical billing representative of atrial fibrillation or not. Her [id number] score is 3 given age of 65, female sex, and h/o HTN, predicting estimated annual stroke risk is 3.2%. Furthermore she has echo evidence of what appears to be mild rheumatic heart disease with mild , mild AR and mild mitral stenosis and therefore I would consider this perhaps a variant of valvular atrial fibrillation and therefore Coumadin is the recommended treatment rather than a direct oral anticoagulant. She does however have a right knee infection. I have placed a page to Dr. Winters, her primary orhtopedic provider is performed post a recent operations to discuss candidacy for Coumadin for both stroke prophylaxis in the setting of paroxysmal atrial fibrillation and DVT prophylaxis forward. I would like orthopedics to be involved in decision making , in case they're concerned about the risk of anticoagulation and potential for bleeding at a recent operative site. I spoke to a nurse at the [facility], and the telephone message to call me back in the PCU. In the meantime, I'm going to start Coumadin, and DC heparin infusion and place her on lovenx for DVT prophylaxis until INR is greater or equal to 2. I am going to stop the heparin infusion for now to reduce risk of bleeding complication at her recent procedure site as I feel bleeding risk would be higher as we place her on 2 anticoagulants. If she has recurrence of AF, would resume heparin bridge. Prior to this hospital stay, the patient was on lisinopril and HCTZ for hypertension. Her blood pressure is been on the lower side perioperatively, for now, lisinopril plus HCTZ are on hold and she is on metoprolol tartrate for blood pressure and heart rate control. Matthew Santoro, Laboratory Results Last 24 Hours Test 11/11/16 06:20 Activated Partial Thromboplast Time 77.4 SECONDS Partial Thromboplastin Ratio 3.0
[2016-11-11] MEDS ORDERED: WARFARIN SOD 5 MG TAB PO ONE (10:45)
[2016-11-11 11:16] LABS: INR 0.9 (0.9-1.1)
[2016-11-11] MEDS: ENOXAPARIN 40 MG/0.4 ML SYR SQ SCH (11:16)
[2016-11-11 11:35] VITALS: BP 121/75; PULSE 76; TEMP 36.5; O2SAT 100
[2016-11-11] MEDS: ONDANSETRON INJ 2 MG/ML 2 ML VIAL IV PRN (12:10)
--- NOTE | 2016-11-11 12:25 | Orthopedic Progress Note ---
Orthopedic Progress Note Date of Service Nov 11, 2016. Subjective Post OP Day: 3 Reports: feeling well, SOB, nausea / vomiting, light headedness, calf pain, pain controlled w PO medications, Denies: complaints, chest pain Objective N/V intact, capillary refill less than 2 sec., dressing C/D/I, A&O x3, toes mobile Patient still notices some knee pain in the posterior aspect of her knee with palpation. DVT was ruled out. Date Time Temp Pulse Resp B/P (MAP) Pulse Ox O2 Delivery O2 Flow Rate FiO2 11/11/16 11:35 36.5 76 20 121/75 (90) 100 Room Air 11/11/16 08:00 Room Air 11/11/16 07:42 36.9 73 18 138/76 (96) 95 Room Air 11/11/16 04:00 37.0 74 18 128/73 (91) 96 Room Air 11/11/16 04:00 Room Air 11/11/16 00:00 Room Air 11/10/16 22:55 36.9 86 18 116/70 (85) 97 Room Air 11/10/16 20:00 96 Room Air 11/10/16 18:50 36.9 73 19 112/75 (87) 98 Room Air 11/10/16 16:00 96 Room Air 11/10/16 15:31 37.0 80 19 116/69 (85) 96 Room Air 11/10/16 12:29 36.6 86 18 115/69 (84) 95 Laboratory Results 24 Hours: Test 11/11/16 10:50 Prothromb Time International Ratio 0.9 Prothrombin Time 10.0 SECONDS Assessment & Plan Assessment: POD #3 I & D of right knee with poly exchange S/P Right TKA Plan: DVT Prophylaxis - ASA Discharge - would like [place] [facility], possibly today if not tomorrow. PT/OT cultures growing MSSA On Ancef, likely to go to SNF with ceftriaxone Appreciate ID help Inhouse Planning Pain Management: PO Tylenol, Oxy IR DVT Prophylaxis: TEDs, SCDs, Coumadin Discharge Planning Discharge Planning: assisted facility ([place]) Pain Management: Oxycontin, PO Tylenol, Oxy IR DVT Prophylaxis: TEDs, Coumadin Therapy: Physical Therapy
[2016-11-11 15:40] VITALS: BP 102/63; PULSE 97; TEMP 36.7; O2SAT 97
[2016-11-11] MEDS ORDERED: HYDROCHLOROTHIAZIDE 25 MG TAB PO SCH (15:44)
--- NOTE | 2016-11-11 15:53 | Progress Note ---
Internal Med Progress Note Date of Service: Nov 11, 2016. Provider Documentation: SUBJECTIVE: The patient was seen and examined Complained of infrequent palpitations for a while Noted to Have another episode Noted to have AF with RVR Clinically asymptomatic now and in SR OBJECTIVE: Vital Signs-as noted below Exam: General-No distress at rest Eyes-Normal ENT-normal Neck-supple Lungs-clear ro auscultate bilaterally Heart-Regular,no murmur appreciated Abdomen-Benign,no masses,bowel sound present Extremities-Trace edema bilaterally S/P Right Knee surgeruy Wound VAC in place and does not show any infection Neuro-AAOx3 Lab data as noted below. ASSESSMENT & PLAN: Paroxysmal AF Can be a New onset atrial fibrillation, Converted to SR on IV amiodarone 11/09/16. and later on Discontinued Continue BB Has been on Heparin Appreciate cardiology input ECHO:: * Sinus rhythm was present during the echocardiogram study. * No regional wall motion abnormalities noted. * The left ventricle is hyperdynamic. * The LV Ejection Fraction = 65-70%. * The left atrium is mildly dilated. * The aortic valve was not well visualized. * Unable to determine the number of cusps. * The Doppler evaluation of the aortic valve was technically adequate. * Mild aortic regurgitation. * Mild valvular aortic stenosis. Clinically stable now US of the Legs -negative for DVT Will get CTA to r/o PE-NO PE Started on Coumadin and Lovenox Continue Lovenox till INR is Therapeutic S/P Right TKA infection Right TKA done 3 weeks ago with no complication s/p incision and drainage on 11/[address] Winters Finding Christen purulent drainage from the distal aspect of the wound, christen purulent material deep to the arthrotomy and around the prosthesis On IV Ancef, pain control ID on board-input appreciated Wound VAC is placed HTN BP in the low side On hold HCTZ and lisinopril Continue monitor BP-stable DVT Px as per ortho CODE STATUS FULL CODE Vital Signs: Date Time Temp Pulse Resp B/P (MAP) Pulse Ox O2 Delivery O2 Flow Rate FiO2 11/11/16 12:00 Room Air 11/11/16 11:35 36.5 76 20 121/75 (90) 100 Room Air 11/11/16 08:00 Room Air 11/11/16 07:42 36.9 73 18 138/76 (96) 95 Room Air 11/11/16 04:00 37.0 74 18 128/73 (91) 96 Room Air 11/11/16 04:00 Room Air 11/11/16 00:00 Room Air 11/10/16 22:55 36.9 86 18 116/70 (85) 97 Room Air 11/10/16 20:00 96 Room Air 11/10/16 18:50 36.9 73 19 112/75 (87) 98 Room Air 11/10/16 16:00 96 Room Air Lab Results: Results Past 24 Hours Test 11/11/16 06:20 11/11/16 10:50 Range/Units Activated Partial Thromboplast Time 77.4 21.0-31.0 SECONDS Partial Thromboplastin Ratio 3.0 Prothrombin Time 10.0 9.0-12.0 SECONDS Prothromb Time International Ratio 0.9 0.9-1.1
[2016-11-11] MEDS ORDERED: LVNIS40 SQ (15:56)
[2016-11-11] MEDS ORDERED: CMD5 PO (15:56)
[2016-11-11] MEDS ORDERED: CEFT1INJ57 IV (15:56)
[2016-11-11] MEDS ORDERED: POTASSIUM CHLORIDE 20 MEQ TABCR PO SCH (16:00)
[2016-11-11] MEDS ORDERED: WARFARIN SOD 5 MG TAB PO SCH (16:00)
--- NOTE | 2016-11-11 16:02 | Discharge Instructions ---
Discharge Instructions Date of Service Nov 11, 2016. Admission Reason for Admission: Right Knee Infection Discharge Discharge Diagnosis / Problem: S/P I & D with poly exchange of right TKA Discharge Goals Goal(s): Decrease discomfort, Improve function Activity Recommendations Activity Limitations: per Instructions/Follow-up section . Instructions / Follow-Up Instructions / Follow-Up ACTIVITY RECOMMENDATIONS: SELF CARE INSTRUCTIONS AFTER TOTAL KNEE REPLACEMENT A. IV antibiotics as prescribed. Make sure to follow up with infectious disease with weekly lab draws and point of care for infection. B. You may progress at your own pace from walking with a walker or crutches to a cane; then to no assistive devices. C. Make walking a part of your daily routine. Be up as much as comfortable with rest periods throughout the day. Rest with leg elevation is very important. Use the ice wrap frequently for the first 3-4 weeks. D. There are no restrictions on activities. 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 E. Wear the long elastic stockings (RENA hose) 20 hours a day for 2 weeks after surgery. They can be removed several times a day for laundering and for a bath. F. You may shower, no tub baths until cleared by your doctor. SPECIAL CARE INSTRUCTIONS: VERY IMPORTANT TO READ AND REVIEW A. There are a few signs you need to watch for after you are home. Call [facility] if you notice any of the followin. Increased severe knee pain. Some pain is expected especially when you exercise. 2. Increased swelling in your leg or knee; pain or swelling of the calf muscle in either lower leg. 3. Any fluid drainage from the incision. 4. Shortness of breath or chest pain. B. Please call [facility] at if you have any concerns or questions about your operation or recovery. The doctor or his nurse will return your call promptly. C. You must take antibiotics before dental work, bladder, bowel or other surgery. Your doctor will provide you with a permanent care to carry describing this precaution. IMPORTANT: * YOU WILL BE ON WARFARIN. THIS IS YOUR BLOOD THINNER, YOU ARE TO GET LABS DRAWN TO MAKE SURE YOU INR IS AT A LEVEL OF 2.0. * CALL IF INCREASED PAIN, REDNESS, DRAINAGE OR FEVER GREATER THAT 101. * WEAR RENA HOSE 20 HOURS PER DAY FOR 2 WEEKS. * YOU MAY HAVE A LARGE BAND-AID LIKE DRESSING (PREVENA). THIS WILL REMAIN ON YOUR INCISION FOR 7 DAYS, THEN CAN BE REMOVED. IF INCISION IS LEAKING THROUGH DRESSING, CALL THE OFFICE . FOLLOW UP VISIT: If appointment is not already scheduled: Please call [facility] to make a follow-up appointment for 2 weeks after your surgery with Dr. Winters or his PA at . Current Hospital Diet Patient's current hospital diet: Regular Diet Discharge Diet Recommended Diet: Regular Diet Procedures Procedures Performed: Right Knee Incision and Drainage and Poly Exchange Pending Studies Studies pending at discharge: no Laboratory Results Hemoglobin A1c Test 09/23/16 12:16 Range/Units Estimated Average Glucose 126 mg/dl Hemoglobin A1c 6.0 H 4.5-5.6 % Medical Emergencies . Who to Call and When: Medical Emergencies: If at any time you feel your situation is an emergency, please call 911 immediately. . Non-Emergent Contact Non-Emergency issues call your: Surgeon Call Non-Emergent contact if: temperature is above 101.5, your pain is worsening, wound has increased drainage, wound has increased redness . "Provider Documentation" section prepared by Sai Chance. . VTE Core Measure Inpt VTE Proph given/why not?: Warfarin (Coumadin) [place] Drug Monitoring Program Search Results: patient reviewed within database, no issues identified
[2016-11-11 16:32] LABS: BLOOD UREA NITROGEN 16 mg/dl (7-18); BUN/CREATININE RATIO 21.3 (10-20); CALCIUM 8.6 mg/dl (8.5-10.1); CARBON DIOXIDE 28 mmol/L (21-32); CHLORIDE 105 mmol/L (98-107); CREATININE 0.76 mg/dl (0.60-1.20); GLUCOSE 177 mg/dl (70-99); MAGNESIUM 2.1 mg/dl (1.8-2.4); POTASSIUM 3.6 mmol/L (3.5-5.1); SODIUM 140 mmol/L (136-145)
[2016-11-11 17:19] LABS: HEMATOCRIT 26.6 % (37-47); MEAN CELL VOLUME 85.8 fL (80-100); MEAN CORPUSCULAR HEMOGLOBIN 27.7 pg (25-34); MEAN CORPUSCULAR HGB CONC 32.3 g/dl (32-36); MEAN PLATELET VOLUME 9.6 fL (7.4-10.4); PLATELET COUNT 277 K/uL (130-400); WHITE BLOOD COUNT 5.32 K/uL (4.8-10.8)
--- NOTE | 2016-11-11 17:47 | Infectious Disease Progress Nt ---
Progress Note Date of Service Nov 11, 2016. Subjective Pt evaluation today including: conversation w/ patient, physical exam, chart review, lab review, review of studies, conversation w/ lean consultant, review of inpatient medication list Patient offers no new complaints today. Pain is controlled. No fever. Tolerating antibiotic without apparent difficulty. All Other Systems: Reviewed and Negative Medications Current Inpatient Medications Medications (Trade) Dose Ordered Sig/Dasha Route Start Time Stop Time Status Last Admin Dose Admin Morphine Sulfate (MoRPHine SULFATE INJ) 2 mg Q2H PRN IV 11/07/16 15:30 11/21/16 15:29 11/11/16 08:19 2 MG Celecoxib (CeleBREX CAP) 200 mg BID PO 11/08/16 21:00 12/08/16 20:59 11/11/16 08:12 200 MG Oxybutynin Chloride (Ditropan Tab) 5 mg QAM PO 11/08/16 09:00 12/08/16 08:59 11/11/16 08:15 5 MG Pravastatin Sodium (Pravachol Tab) 40 mg QAM PO 11/08/16 09:00 12/08/16 08:59 11/11/16 08:15 40 MG Calcium/Vitamin D (Caltrate Plus Tab) 1 tab QAM PO 11/08/16 09:00 12/08/16 08:59 11/11/16 08:13 1 TAB Pantoprazole Sodium (Protonix Tab) 40 mg QAM PO 11/08/16 09:00 12/08/16 08:59 11/11/16 08:14 40 MG Oxycodone HCl (Roxicodone Immediate Rel Tab) 1 TABLET FOR PAIN RATING... Q4H PRN PO 11/07/16 20:45 11/21/16 20:44 11/11/16 06:28 10 MG Acetaminophen (Tylenol Tab) 1,000 mg Q8 PO 11/07/16 22:00 12/07/16 21:59 11/11/16 16:08 1,000 MG Magnesium Hydroxide (Milk Of Magnesia Susp) 30 ml Q6H PRN PO 11/07/16 20:45 12/07/16 20:44 Diphenhydramine HCl (Benadryl Cap) 25 mg Q8H PRN PO 11/07/16 20:45 12/07/16 20:44 Diphenhydramine HCl (Benadryl Inj) 25 mg Q8H PRN IV 11/07/16 20:45 12/07/16 20:44 Al Hydrox/Mg Hydrox/Simethicone (Maalox Max Susp) 15 ml Q4H PRN PO 11/07/16 20:45 12/07/16 20:44 11/09/16 20:51 15 ML Zolpidem Tartrate (Ambien Tab) 5 mg HSZ PRN PO 11/07/16 20:45 12/07/16 20:44 Multivitamins (Multivitamin Tab) 1 tab QAM PO 11/08/16 09:00 12/08/16 08:59 11/11/16 08:12 1 TAB Ondansetron HCl (Zofran Inj) 4 mg Q6H PRN IV 11/07/16 20:45 12/07/16 20:44 11/11/16 12:10 4 MG Metoclopramide HCl (Reglan Inj) 10 mg Q6H PRN IV 11/07/16 20:45 12/07/16 20:44 Heparin Sodium (Porcine) (Heparin 10 Unit/ ml 5 ml Flush) 5 ml PRN PRN FLUSH 11/09/16 00:45 12/09/16 00:44 11/09/16 00:39 5 ML Cefazolin Sodium 2000 mg/Dextrose 60 ml @ 100 mls/hr Q8H IV 11/09/16 12:00 12/21/16 11:59 11/11/16 11:18 100 MLS/HR Ioversol (Optiray 320) 125 ml UD PRN IV 11/10/16 13:15 11/14/16 13:14 Metoprolol Tartrate (Lopressor Tab) 25 mg BID PO 11/11/16 21:00 12/11/16 20:59 Warfarin Sodium (Coumadin Tab) 5 mg DAILY@16 PO 11/11/16 16:00 12/11/16 15:59 11/11/16 16:09 5 MG Enoxaparin Sodium (Lovenox Inj) 40 mg QAM SQ 11/11/16 11:00 12/11/16 10:59 11/11/16 11:16 40 MG Aspirin (Ecotrin Tab) 81 mg BID PO 11/11/16 21:00 12/11/16 20:59 Potassium Chloride (Klor-Con Tab) 20 meq TODAY@1600 PO 11/11/16 16:00 11/11/16 18:00 11/11/16 16:22 20 MEQ Objective Vital Signs Date Time Temp Pulse Resp B/P (MAP) Pulse Ox O2 Delivery O2 Flow Rate FiO2 11/11/16 16:00 Room Air 11/11/16 15:40 36.7 97 18 102/63 (76) 97 Room Air 11/11/16 12:00 Room Air 11/11/16 11:35 36.5 76 20 121/75 (90) 100 Room Air 11/11/16 08:00 Room Air 11/11/16 07:42 36.9 73 18 138/76 (96) 95 Room Air 11/11/16 04:00 37.0 74 18 128/73 (91) 96 Room Air 11/11/16 04:00 Room Air 11/11/16 00:00 Room Air 11/10/16 22:55 36.9 86 18 116/70 (85) 97 Room Air 11/10/16 20:00 96 Room Air 11/10/16 18:50 36.9 73 19 112/75 (87) 98 Room Air Physical Exam General Appearance: WD/WN, no apparent distress Eyes: normal inspection, sclerae normal ENT: normal ENT inspection, pharynx normal Neck: supple, no adenopathy, trachea midline Respiratory/Chest: lungs clear, normal breath sounds, no respiratory distress Cardiovascular: regular rate, rhythm, no gallop, no murmur Abdomen: normal bowel sounds, non tender, soft, no organomegaly Extremities: non-tender, no calf tenderness Neurologic/Psychiatric: alert, oriented x 3 Skin: normal color, warm/dry, no rash, + pertinent finding (Dressing intact) Lymphatic: no adenopathy Laboratory Results Last 24 Hours Test 11/11/16 06:20 11/11/16 10:50 11/11/16 15:57 Activated Partial Thromboplast Time 77.4 SECONDS Partial Thromboplastin Ratio 3.0 Prothrombin Time 10.0 SECONDS Prothromb Time International Ratio 0.9 White Blood Count 5.32 K/uL Red Blood Count 3.10 M/uL Hemoglobin 8.6 g/dL Hematocrit 26.6 % Mean Corpuscular Volume 85.8 fL Mean Corpuscular Hemoglobin 27.7 pg Mean Corpuscular Hemoglobin Concent 32.3 g/dl RDW Standard Deviation 44.4 fL RDW Coefficient of Variation 14.1 % Platelet Count 277 K/uL Mean Platelet Volume 9.6 fL Sodium Level 140 mmol/L Potassium Level 3.6 mmol/L Chloride Level 105 mmol/L Carbon Dioxide Level 28 mmol/L Anion Gap 7.0 mmol/L Blood Urea Nitrogen 16 mg/dl Creatinine 0.76 mg/dl Est Creatinine Clear Calc Drug Dose 91.3 ml/min Estimated GFR () 95.4 Estimated GFR (Non- 82.3 BUN/Creatinine Ratio 21.3 Random Glucose 177 mg/dl Calcium Level 8.6 mg/dl Magnesium Level 2.1 mg/dl Troponin I < 0.015 ng/ml Assessment and Plan Early infection of right TKA, now s/p debridement with poly-exchange. Cultures now growing methicillin sensitive Staph aureus. For now, patient will be treated with IV cefazolin, likely to transition to ceftriaxone for outpatient therapy. Will follow.
[2016-11-11 19:25] VITALS: BP 116/67; PULSE 88; TEMP 36.9; O2SAT 97
[2016-11-11] MEDS: ASPIRIN 81 MG ECTAB PO SCH (21:52)
[2016-11-11 23:21] VITALS: BP 125/67; PULSE 92; TEMP 36.8; O2SAT 96
[2016-11-12] MEDS: MoRPHine SULFATE 2 MG/ML CARP IV PRN (01:25)
[2016-11-12 03:44] VITALS: BP 145/70; PULSE 91; TEMP 36.8; O2SAT 95
[2016-11-12] MEDS: CEFAZOLIN IV 2,000 MG in DEXTROSE 5% 50ML 50 ML IV SCH ×2 (04:27→11:05)
[2016-11-12 05:24] LABS: MEAN CELL VOLUME 86.4 fL (80-100); MEAN CORPUSCULAR HEMOGLOBIN 28.2 pg (25-34); MEAN CORPUSCULAR HGB CONC 32.7 g/dl (32-36); MEAN PLATELET VOLUME 9.3 fL (7.4-10.4); PLATELET COUNT 274 K/uL (130-400); RED BLOOD COUNT 3.01 M/uL (4.2-5.4); WHITE BLOOD COUNT 5.65 K/uL (4.8-10.8)
[2016-11-12 05:35] LABS: INR 1.1 (0.9-1.1); PROTHROMBIN TIME (PATIENT) 11.9 SECONDS (9.0-12.0)
[2016-11-12] MEDS: ACETAMINOPHEN 500 MG TAB PO SCH (05:50)
[2016-11-12 06:13] LABS: BUN/CREATININE RATIO 21.8 (10-20); CALCIUM 8.5 mg/dl (8.5-10.1); CREATININE 0.67 mg/dl (0.60-1.20); POTASSIUM 4.2 mmol/L (3.5-5.1)
[2016-11-12 07:26] VITALS: BP 120/73; PULSE 73; TEMP 36.9; O2SAT 95
[2016-11-12] MEDS: OXYCODONE HCL IR 5 MG TAB (IMMEDIATE RELEASE) PO PRN (08:34)
[2016-11-12] MEDS: ASPIRIN 81 MG ECTAB PO SCH (08:34)
[2016-11-12] MEDS: MULTIVITAMIN TAB PO SCH (08:35)
[2016-11-12] MEDS: CeleBREX 200 MG CAP PO SCH (08:35)
[2016-11-12] MEDS: OXYBUTYNIN CHLORIDE 5 MG TAB PO SCH (08:36)
[2016-11-12] MEDS: PANTOprazole SOD 40 MG TAB PO SCH (08:36)
[2016-11-12] MEDS: PRAVASTATIN SOD 20 MG TAB PO SCH (08:36)
[2016-11-12] MEDS: ENOXAPARIN 40 MG/0.4 ML SYR SQ SCH (08:36)
[2016-11-12] MEDS: METOPROLOL TARTRATE 25 MG TAB PO SCH (08:37)
[2016-11-12] MEDS: CALCIUM 600MG + VIT D 400 IU TAB PO SCH (08:38)
--- NOTE | 2016-11-12 09:21 | Orthopedic Progress Note ---
Orthopedic Progress Note Date of Service Nov 12, 2016. Subjective Post OP Day: 5 Reports: feeling well Objective N/V intact, dressing C/D/I (Prevena in place), toes mobile Date Time Temp Pulse Resp B/P (MAP) Pulse Ox O2 Delivery O2 Flow Rate FiO2 11/12/16 08:00 Room Air 11/12/16 07:26 36.9 73 20 120/73 (89) 95 Room Air 11/12/16 04:00 Room Air 11/12/16 03:44 36.8 91 20 145/70 (95) 95 Room Air 11/11/16 23:59 Room Air 11/11/16 23:21 36.8 92 18 125/67 (86) 96 Room Air 11/11/16 20:00 Room Air 11/11/16 19:25 36.9 88 18 116/67 (83) 97 Room Air 11/11/16 16:00 Room Air 11/11/16 15:40 36.7 97 18 102/63 (76) 97 Room Air 11/11/16 12:00 Room Air 11/11/16 11:35 36.5 76 20 121/75 (90) 100 Room Air Laboratory Results 24 Hours: Test 11/11/16 10:50 11/11/16 15:57 11/12/16 04:52 Prothromb Time International Ratio 0.9 1.1 Prothrombin Time 10.0 SECONDS 11.9 SECONDS Hematocrit 26.6 % 26.0 % Hemoglobin 8.6 g/dL 8.5 g/dL Assessment & Plan Assessment: POD #5 I & D of right TKA with poly exchange Plan: DVT Prophylaxis - ASA Discharge - home w/ HH. PT/OT cultures growing MSSA On Ancef, likely to go to SNF with ceftriaxone Appreciate ID help Inhouse Planning Pain Management: PO Tylenol, Oxy IR DVT Prophylaxis: TEDs, SCDs, Coumadin Discharge Planning Discharge Planning: [facility] facility ([place]) Pain Management: Oxycontin, PO Tylenol, Oxy IR DVT Prophylaxis: TEDs, Coumadin Therapy: Physical Therapy
[2016-11-12 09:35] VITALS: BP 120/73; PULSE 73; TEMP 36.9; O2SAT 95
[2016-11-12] MEDS ORDERED: LOVENOX TEACHING KIT ONE (09:45)
[2016-11-12] MEDS ORDERED: RXC5 PO (09:52)
[2016-11-12] MEDS ORDERED: LPR25 PO (11:08)
--- NOTE | 2016-11-12 16:23 | Progress Note ---
Internal Med Progress Note Date of Service: Nov 12, 2016. Provider Documentation: SUBJECTIVE: The patient was seen and examined Complained of infrequent palpitations for a while Denies any complains today Ready to be discharged OBJECTIVE: Vital Signs-as noted below Exam: General-No distress at rest Eyes-Normal ENT-normal Neck-supple Lungs-clear ro auscultate bilaterally Heart-Regular,no murmur appreciated Abdomen-Benign,no masses,bowel sound present Extremities-Trace edema bilaterally S/P Right Knee surgeruy Wound VAC in place and does not show any infection Neuro-AAOx3 Lab data as noted below. ASSESSMENT & PLAN: Paroxysmal AF Can be a New onset atrial fibrillation, Converted to SR on IV amiodarone 11/09/16. and later on Discontinued Continue BB Has been on Heparin Appreciate cardiology input ECHO:: * Sinus rhythm was present during the echocardiogram study. * No regional wall motion abnormalities noted. * The left ventricle is hyperdynamic. * The LV Ejection Fraction = 65-70%. * The left atrium is mildly dilated. * The aortic valve was not well visualized. * Unable to determine the number of cusps. * The Doppler evaluation of the aortic valve was technically adequate. * Mild aortic regurgitation. * Mild valvular aortic stenosis. Clinically stable now US of the Legs -negative for DVT Will get CTA to r/o PE-NO PE Started on Coumadin and Lovenox Continue Lovenox till INR is Therapeutic Duration of anticoagulation as per Cardiology S/P Right TKA infection Right TKA done 3 weeks ago with no complication s/p incision and drainage on 11/[address] Winters Finding Christen purulent drainage from the distal aspect of the wound, christen purulent material deep to the arthrotomy and around the prosthesis On IV Ancef, pain control ID on board-input appreciated Wound VAC is placed HTN BP in the low side On hold HCTZ and lisinopril-stopped Continue monitor BP-stable Continue with BB DVT Px as per ortho CODE STATUS FULL CODE Medically stable to be discharged Vital Signs: Date Time Temp Pulse Resp B/P (MAP) Pulse Ox O2 Delivery O2 Flow Rate FiO2 11/12/16 09:35 36.9 73 20 95 Room Air 11/12/16 08:00 Room Air 11/12/16 07:26 36.9 73 20 120/73 (89) 95 Room Air 11/12/16 04:00 Room Air 11/12/16 03:44 36.8 91 20 145/70 (95) 95 Room Air 11/11/16 23:59 Room Air 11/11/16 23:21 36.8 92 18 125/67 (86) 96 Room Air 11/11/16 20:00 Room Air 11/11/16 19:25 36.9 88 18 116/67 (83) 97 Room Air Lab Results: Results Past 24 Hours Test 11/12/16 04:52 Range/Units White Blood Count 5.65 4.8-10.8 K/uL Red Blood Count 3.01 4.2-5.4 M/uL Hemoglobin 8.5 12.0-16.0 g/dL Hematocrit 26.0 37-47 % Mean Corpuscular Volume 86.4 80-100 fL Mean Corpuscular Hemoglobin 28.2 25-34 pg Mean Corpuscular Hemoglobin Concent 32.7 32-36 g/dl RDW Standard Deviation 44.7 36.4-46.3 fL RDW Coefficient of Variation 14.2 11.5-14.5 % Platelet Count 274 130-400 K/uL Mean Platelet Volume 9.3 7.4-10.4 fL Prothrombin Time 11.9 9.0-12.0 SECONDS Prothromb Time International Ratio 1.1 0.9-1.1 Sodium Level 143 136-145 mmol/L Potassium Level 4.2 3.5-5.1 mmol/L Chloride Level 110 98-107 mmol/L Carbon Dioxide Level 28 21-32 mmol/L Anion Gap 5.0 3-11 mmol/L Blood Urea Nitrogen 15 7-18 mg/dl Creatinine 0.67 0.60-1.20 mg/dl Est Creatinine Clear Calc Drug Dose 104.7 ml/min Estimated GFR () 106.9 Estimated GFR (Non- 92.2 BUN/Creatinine Ratio 21.8 10-20 Random Glucose 105 70-99 mg/dl Calcium Level 8.5 8.5-10.1 mg/dl
--- NOTE | 2016-11-16 10:26 | Discharge Summary ---
Orthopedic Discharge Summary Admission Date/Reason Nov 07, 2016 at 14:20 Right Knee Infection. Discharge Date/Disposition Nov 12, 2016 Home with services Diagnosis Principal Diagnosis: S/P I&D with polyexchange after Right TKA infection Medication Reconciliation as per discharge instructions Admission Physical Exam As per Admitting History & Physical. Hospital Course POD #1 patient was feeling well with on complaints. Dressing was C/D/I. Cultures were still pending at this time and awaiting sensitivities. POD# 2 patient had some abnormalities on EKG and some palpitations. She was transferred to telemetry for cardio evaluation. She had a history of heart palpitations in the past with no work up. She was worked up for a PE, DVT and had a echo on POD #4. All returned negative. It was recommended that she go home with coumadin and Lovenox. Her cultures grew out MSSA. She had a PICC line and was sent home with Home health for antibiotic treatment. Discharge Instructions Please refer to the electronic Patient Visit Report (Discharge Instructions) for additional information.
== END 2016-11-12 11:35 | disposition home health service (06) | DRG 464 ==
LOC: C.MSN 14:20 → ENRESERV 11-09 09:04 → C.2T 11-09 10:01
PROVIDERS: ADMIT Orthopaedic Surgery; ATTEND Orthopaedic Surgery
PROC: 0SUC09Z Supplement Right Knee Joint with Liner, Open Approach (ICD-10-PCS; principal; 2016-11-07 07:45)
PROC: 0SPC09Z Removal of Liner from Right Knee Joint, Open Approach (ICD-10-PCS; principal; 2016-11-07 07:45)
PROC: 0S9C0ZX Drainage of Right Knee Joint, Open Approach, Diagnostic (ICD-10-PCS; principal; 2016-11-07 07:45)
PROC: 02HV33Z Insertion of Infusion Device into Superior Vena Cava, Percutaneous Approach (ICD-10-PCS; 2016-11-08)
DX: T84.50XA Infection and inflammatory reaction due to unspecified internal joint prosthesis, initial encounter (principal); Z68.41 Body mass index [BMI] 40.0-44.9, adult; E78.5 Hyperlipidemia, unspecified; I10 Essential (primary) hypertension; F17.210 Nicotine dependence, cigarettes, uncomplicated; M19.90 Unspecified osteoarthritis, unspecified site; E66.9 Obesity, unspecified; K21.9 Gastro-esophageal reflux disease without esophagitis; M06.9 Rheumatoid arthritis, unspecified; R94.31 Abnormal electrocardiogram [ECG] [EKG]; I05.0 Rheumatic mitral stenosis; I35.0 Nonrheumatic aortic (valve) stenosis; E03.9 Hypothyroidism, unspecified; R00.2 Palpitations; I48.91 Unspecified atrial fibrillation; M54.5 Low back pain; Z79.82 Long term (current) use of aspirin; Z79.1 Long term (current) use of non-steroidal anti-inflammatories (NSAID); Z79.891 Long term (current) use of opiate analgesic

== ENCOUNTER → 2016-11-14 | Outpatient (CLI) | payer OTHER ==
[~2016-11-14] MED LIST changes: -ASPI81TA28 PO; +CEFT1INJ57 IV; +CMD5 PO; -LISINOPRIL HCTZ PO; +LPR25 PO; +LVNIS40 SQ; +RXC5 PO
[2016-11-14 14:13] LABS: BASO % 0.6 %; BASO ABS # 0.04 K/uL (0-0.2); COMPLETE YES; EOS % 2.7 %; HEMATOCRIT 29.8 % (37-47); IG% 0.6 %; LYMPH % 19.5 %; LYMPH ABS # 1.24 K/uL (1.2-3.4); MEAN CELL VOLUME 86.6 fL (80-100); MEAN CORPUSCULAR HEMOGLOBIN 28.2 pg (25-34); MEAN CORPUSCULAR HGB CONC 32.6 g/dl (32-36); MEAN PLATELET VOLUME 9.6 fL (7.4-10.4); NEUT % 68.6 %; PLATELET COUNT 340 K/uL (130-400); RED BLOOD COUNT 3.44 M/uL (4.2-5.4); WHITE BLOOD COUNT 6.35 K/uL (4.8-10.8)
[2016-11-14 14:41] LABS: ALT/SGPT 56 U/L (12-78); AST/SGOT 45 U/L (15-37); BLOOD UREA NITROGEN 14 mg/dl (7-18); BUN/CREATININE RATIO 20.6 (10-20); CALCIUM 8.9 mg/dl (8.5-10.1); CARBON DIOXIDE 23 mmol/L (21-32); CHLORIDE 105 mmol/L (98-107); GLUCOSE 91 mg/dl (70-99); POTASSIUM 4.1 mmol/L (3.5-5.1); SODIUM 139 mmol/L (136-145)
[2016-11-14 14:44] LABS: ALB/GLOB RATIO 0.7 (0.9-2); ALKALINE PHOSPHATASE 90 U/L (45-117)
== END | disposition home or self-care (01) ==
LOC: C.LABSPEC 13:33
PROVIDERS: ATTEND Orthopaedic Surgery
DX: L08.9 Local infection of the skin and subcutaneous tissue, unspecified (principal); B95.8 Unspecified staphylococcus as the cause of diseases classified elsewhere

== ENCOUNTER → 2016-11-21 | Outpatient (CLI) | payer OTHER ==
[~2016-11-21] MED LIST changes: +ACET-1256 PO; +ASPI81TA28 PO; +CEFT1INJ57 INJ; +DAPT500I IV; +DTR/5 PO; +LSN/10125 PO; -OXYB5TAB74 PO; +PRVC/40 PO; +[UNRECOGNIZED DRUG - OTHER] PO
[2016-11-21 13:26] LABS: BASO % 0.6 %; BASO ABS # 0.04 K/uL (0-0.2); COMPLETE YES; EOS % 1.8 %; HEMATOCRIT 30.4 % (37-47); IG% 0.1 %; LYMPH % 20.6 %; LYMPH ABS # 1.39 K/uL (1.2-3.4); MEAN CELL VOLUME 85.6 fL (80-100); MEAN CORPUSCULAR HEMOGLOBIN 27.3 pg (25-34); MEAN CORPUSCULAR HGB CONC 31.9 g/dl (32-36); MONO % 6.7 %; NEUT % 70.2 %; PLATELET COUNT 301 K/uL (130-400); RED BLOOD COUNT 3.55 M/uL (4.2-5.4); WHITE BLOOD COUNT 6.75 K/uL (4.8-10.8)
[2016-11-21 13:37] LABS: ALT/SGPT 25 U/L (12-78); BLOOD UREA NITROGEN 14 mg/dl (7-18); BUN/CREATININE RATIO 22.1 (10-20); CARBON DIOXIDE 20 mmol/L (21-32); CHLORIDE 109 mmol/L (98-107); CREATININE 0.63 mg/dl (0.60-1.20); GLUCOSE 101 mg/dl (70-99); POTASSIUM 3.3 mmol/L (3.5-5.1); SODIUM 141 mmol/L (136-145)
[2016-11-21 13:40] LABS: ALB/GLOB RATIO 0.7 (0.9-2); ALKALINE PHOSPHATASE 67 U/L (45-117); AST/SGOT 17 U/L (15-37)
--- NOTE | 2016-11-23 11:49 | CODING QUERY NO DIAGNOSIS ---
: 1950 TREATMENT RENDERED WITHOUT A DIAGNOSIS To promote full compliance with coding requirements relating to patient care, physician participation is requested in all cases of day care attendant uncertainty. Please assist us with providing a copy of the original, signed physician order including diagnoses for the following services that were rendered on 11/21/16: COMPREHENSIVE METABOLIC PANEL CBC WITH AUTO DIFFERENTIAL ERYTHROCYTE SEDIMENTATION RATE Thank you Lizzy [facility] [employer] [facility] Once completed, please kindly fax back to [phone] For questions please call [phone]
--- NOTE | 2017-01-18 14:28 | CODING QUERY NO DIAGNOSIS ---
: 1950 TREATMENT RENDERED WITHOUT A DIAGNOSIS To promote full compliance with coding requirements relating to patient care, physician participation is requested in all cases of correspondence analyst uncertainty. Please assist us with providing a diagnosis/symptom for the test(s) below: A diagnosis/symptom was not documented on your Order. A valid diagnosis/symptom is required to bill all insurances. Please remember that we are unable to code a diagnosis of rule out, probable, possible, questionable, or suspected. Tests that require a diagnosis: DOS: 11/21/16 *COMPREHENSIVE METABOLIC PANEL DIAGNOSIS: *CBC WITH AUTO DIFFERENTIAL DIAGNOSIS: *ERYTHROCYTE SEDIMENTATION RATE DIAGNOSIS: Provider Signature: Date: Thank you Lizzy Coleman Health Information Management Once completed, please kindly fax back to [phone] For questions please call [phone]
== END | disposition home or self-care (01) ==
LOC: C.LABSPEC 12:53
PROVIDERS: ATTEND Internal Medicine Infectious Disease
DX: Z01.89 Encounter for other specified special examinations (principal)

== ENCOUNTER → 2016-11-28 | Outpatient (CLI) | payer OTHER ==
[2016-11-28 14:08] LABS: BASO % 0.7 %; BASO ABS # 0.05 K/uL (0-0.2); COMPLETE YES; EOS % 2.6 %; HEMATOCRIT 34.7 % (37-47); IG% 0.3 %; LYMPH ABS # 2.21 K/uL (1.2-3.4); MEAN CELL VOLUME 84.6 fL (80-100); MEAN CORPUSCULAR HEMOGLOBIN 27.6 pg (25-34); MEAN CORPUSCULAR HGB CONC 32.6 g/dl (32-36); MEAN PLATELET VOLUME 10.4 fL (7.4-10.4); MONO % 9.3 %; NEUT % 55.1 %; PLATELET COUNT 373 K/uL (130-400); WHITE BLOOD COUNT 6.91 K/uL (4.8-10.8)
[2016-11-28 14:44] LABS: ALT/SGPT 23 U/L (12-78); BLOOD UREA NITROGEN 20 mg/dl (7-18); BUN/CREATININE RATIO 20.3 (10-20); CALCIUM 9.5 mg/dl (8.5-10.1); CARBON DIOXIDE 25 mmol/L (21-32); CHLORIDE 102 mmol/L (98-107); CREATININE 0.98 mg/dl (0.60-1.20); GLUCOSE 103 mg/dl (70-99); SODIUM 137 mmol/L (136-145)
[2016-11-28 14:47] LABS: ALB/GLOB RATIO 0.8 (0.9-2); ALKALINE PHOSPHATASE 86 U/L (45-117); AST/SGOT 20 U/L (15-37)
--- NOTE | 2016-11-30 05:10 | CODING QUERY NO DIAGNOSIS ---
Valid Physician Order Needed A valid physician order must be submitted in order to properly bill for the service(s) provided, including date of service(s), valid diagnosis, and physician signature. If these tests are done on a recurring basis the original physician order must be submitted in order to code and bill for the service(s) provided. Please fax us the original, signed physician order so that we may expedite billing to [phone] DOS 11/28/2016 * CBC W/AUTO DIFF * SED-RATE * CMP Thank you Dem[facility] Information Management
== END | disposition home or self-care (01) ==
LOC: C.LABSPEC 13:39
PROVIDERS: ATTEND Internal Medicine Infectious Disease
DX: Z01.89 Encounter for other specified special examinations (principal)

== ENCOUNTER → 2016-12-07 | Outpatient (CLI) | payer OTHER ==
[~2016-12-07] MED LIST changes: -DAPT500I IV; -DTR/5 PO; +OXYB5TAB74 PO; -PRVC/40 PO
--- NOTE | 2016-12-07 15:51 | History and Physical ---
History & Physical Date Dec 07, 2016. Chief Complaint Right knee non-healing wound History of Present Illness The patient is a 66 year old female with complaints of right knee non-healing wound s/p Right TKA. She was recently admitted to the hospital for an I & D of her right tka 3 weeks after her TKA. The distal aspect of her incision was still open. She has tried wet to dry dressing and Xeroform to help prevent infection with no relief. Past Medical/Surgical History Medical Problems: (1) Right knee DJD Additional History Hepatic Disease: No Endocrine Disorder: No Kidney Disease: No Hypertension: Yes Heart Disease: No Bleeding Tendencies: No Infectious Diseases: No Allergies Coded Allergies: No Known Allergies (Verified , 10/18/16) Home Medications Scheduled Acetaminophen (Sb Non-Aspirin Extra Stre), 1,000 MG PO Q8 Calcium Carbonate-Vitamin D (Calcium + D), 1 TAB PO QAM Ceftriaxone Sod (Rocephin), 2 GM IV Q24H Celecoxib (CeleBREX), 200 MG PO BID Cholecalciferol (Vitamin D3), 5,000 UNITS PO QAM Enoxaparin (Enoxaparin Sodium), 40 MG SQ QAM Esomeprazole Magnesium (Nexium), 40 MG PO QAM Metoprolol Tartrate (Lopressor), 25 MG PO BID Oxybutynin Chloride (Ditropan), 5 MG PO QAM Pravastatin (Pravachol ), 40 MG PO QAM Warfarin Sod (Coumadin), 5 MG PO DAILY@16 Scheduled PRN Oxycodone HCl (Oxycodone HCl), 5-10 MG PO Q4H PRN for Pain Oxycodone Immediate Rel Tab (Roxicodone Ir), 1-2 TAB PO Q4H PRN for Severe Pain Physical Examination Skin: warm/dry, no rash Eyes: normal inspection, EOMI ENT: normal ENT inspection Head: normocephalic, atraumatic Neck: supple, no adenopathy Respiratory/Chest: lungs clear, normal breath sounds Cardiovascular: regular rate, rhythm, no murmur Abdomen / GI: normal bowel sounds, non tender Extremities: + pertinent finding (distal aspect of the incision is open. Fibers of the patella tendon are visable. Mild redness to the area. ) Neurologic/Psych: no motor/sensory deficits, alert, oriented x 3 Diagnosis Non-healing wound 3 weeks S/P I & D of Right TKA Plan of Treatment Patient is scheduled for an I & D of the right knee with possible poly exchange depending on findings at the time of surgery with possible wound vac placement. Patient has failed conservative therapies to help with wound closure. Risks and benefits to surgery were discussed with the patient and she wishes to proceed.
[2016-12-07 17:54] LABS: PARTIAL THROMBOPLASTIN RATIO 1.3; PROTHROMBIN TIME (PATIENT) 10.2 SECONDS (9.0-12.0)
[2016-12-07 17:56] LABS: BASO % 0.8 %; BASO ABS # 0.05 K/uL (0-0.2); COMPLETE YES; EOS % 2.2 %; IG% 0.2 %; LYMPH % 31.5 %; LYMPH ABS # 1.96 K/uL (1.2-3.4); MEAN CELL VOLUME 83.8 fL (80-100); MEAN CORPUSCULAR HGB CONC 32.2 g/dl (32-36); MEAN PLATELET VOLUME 10.1 fL (7.4-10.4); MONO % 9.5 %; NEUT % 55.8 %; PLATELET COUNT 224 K/uL (130-400); RED BLOOD COUNT 3.82 M/uL (4.2-5.4); WHITE BLOOD COUNT 6.23 K/uL (4.8-10.8)
[2016-12-07 17:58] LABS: BLOOD UREA NITROGEN 19 mg/dl (7-18); BUN/CREATININE RATIO 22.6 (10-20); CALCIUM 9.3 mg/dl (8.5-10.1); CARBON DIOXIDE 27 mmol/L (21-32); CHLORIDE 104 mmol/L (98-107); CREATININE 0.84 mg/dl (0.60-1.20); GLUCOSE 90 mg/dl (70-99); POTASSIUM 4.6 mmol/L (3.5-5.1); SODIUM 137 mmol/L (136-145)
[2016-12-08 06:01] LABS: ESTIMATED AVERAGE GLUCOSE 111 mg/dl; HA1C FLAG Normal (Normal)
== END | disposition home or self-care (01) ==
LOC: C.LABMFLN 12:26
PROVIDERS: ATTEND Orthopaedic Surgery
DX: Z01.818 Encounter for other preprocedural examination (principal)

== ENCOUNTER → 2016-12-08 | Outpatient (CLI) | payer OTHER ==
[2016-12-08 13:57] LABS: URINE APPEARANCE CLEAR (CLEAR); URINE BILIRUBIN NEG (NEG); URINE COLOR YELLOW; URINE NITRITE NEG (NEG); URINE PH 5.5 (4.5-7.5); URINE SPECIFIC GRAVITY 1.011 (1.000-1.030); UROBILINOGEN NEG (NEG); ZZUR CULT IF INDIC CLEAN CATCH NO
[2016-12-08 13:59] LABS: MANUAL MICROSCOPIC REQUIRED? NO; REVIEW REQ? NO
== END | disposition home or self-care (01) ==
LOC: C.LABMFLN 07:28
PROVIDERS: ATTEND Orthopaedic Surgery
DX: Z01.812 Encounter for preprocedural laboratory examination (principal)

== ENCOUNTER 2016-12-09 13:59 | Inpatient (IN) | payer OTHER ==
[2016-12-08 14:01] VITALS: BMI 39.0
[~2016-12-09] VITALS: Ht 165.1 cm; Wt 108.2 kg
[~2016-12-09 13:59] MED LIST changes: -ACET-24 PO; +CEFAZOLIN 1000MG IV PUSH 5 ML IV SCH; +CEFAZOLIN 2000MG IV PUSH 10 ML IV SCH; -CEFT1INJ57 IV; -CHOL1000 PO; -CMD5 PO; +DTR/5 PO; +LACTATED RINGER'S 1000ML 1,000 ML IV SCH; -LPR25 PO; -LVNIS40 SQ; -OXYB5TAB74 PO; -RXC5 PO; -[UNRECOGNIZED DRUG - OTHER] PO
[2016-12-09] MEDS ORDERED: BUPIVACAINE 0.5 % 5 MG/1 ML PF 10ML VIAL ONE (14:00)
[2016-12-09] MEDS ORDERED: BUPIVACAINE 0.25% 30 ML VIAL ONE (14:01)
[2016-12-09] MEDS ORDERED: CeleBREX 200 MG CAP ONE (14:25)
[2016-12-09] MEDS ORDERED: OXYCODONE HCL 10 MG TABCR (OXYCONTIN) PO ONE (14:25)
[2016-12-09] MEDS ORDERED: DEXAMETHASONE 4 MG TAB ONE (14:26)
[2016-12-09] MEDS ORDERED: FAMOTIDINE 20 MG TAB ONE (14:26)
[2016-12-09] MEDS ORDERED: ACETAMINOPHEN 500 MG TAB PO ONE (14:26)
[2016-12-09] MEDS ORDERED: METOCLOPRAMIDE HCL 10 MG TAB PO ONE (14:26)
[2016-12-09] MEDS ORDERED: GABAPENTIN 300 MG CAP PO ONE (14:26)
[2016-12-09 14:33] VITALS: BP 142/64; PULSE 89; TEMP 37; O2SAT 97; Ht 165.1 cm; Wt 108.2 kg
[2016-12-09] MEDS ORDERED: PROMETHAZINE HCL INJ 12.5 MG in SODIUM CHLORIDE 0.9% 50ML 50 ML IV PRN (16:30)
[2016-12-09] MEDS ORDERED: HYDROmorphone INJ 1 MG/ML SYR IV PRN (16:30)
[2016-12-09] MEDS ORDERED: EpHEDrine SULFATE INJ 50 MG/ML AMP IV PRN (16:30)
[2016-12-09] MEDS ORDERED: LABETALOL HCL IV 5 MG/ML 20ML IV PRN (16:30)
[2016-12-09] MEDS ORDERED: PHENYLEPHRINE 100MCG/ML 5ML SYR IV PRN (16:30)
[2016-12-09] MEDS ORDERED: ONDANSETRON INJ 2 MG/ML 2 ML VIAL IV PRN ×2 (16:30→20:45)
[2016-12-09] MEDS ORDERED: ATROPINE SULFATE 0.1 MG/ML 5ML SYR IV PRN (16:30)
[2016-12-09] MEDS ORDERED: FENTANYL CITRATE INJ 50 MCG/1 ML 2 ML VIAL IV PRN (16:30)
[2016-12-09] MEDS ORDERED: POVIDONE-IODINE OP SOLN 30 ML BTL ONE (17:55)
[2016-12-09] MEDS ORDERED: BACITRACIN 50000 UNIT VIAL ONE ×2 (17:55→18:49)
[2016-12-09] MEDS ORDERED: FENTANYL CITRATE INJ 50 MCG/1 ML 2 ML VIAL ONE ×5 (18:00→20:33)
[2016-12-09] MEDS ORDERED: MIDAZOLAM HCL 1 MG/ML 2ML VIAL ONE (18:00)
[2016-12-09] MEDS ORDERED: BUPIVACAINE/EPINEPHRINE 0.5% MPF 1:200,000 30 ML VIAL ONE (18:01)
[2016-12-09] MEDS ORDERED: ONDANSETRON INJ 2 MG/ML 2 ML VIAL ONE (19:46)
[2016-12-09] MEDS ORDERED: PROPOFOL IV EMULSION 10 MG/ML 20 ML VIAL IV ONE (19:46)
[2016-12-09] MEDS ORDERED: LIDOCAINE HCL 2% 2 ML VIAL (20MG/ML) ONE (19:46)
[2016-12-09] MEDS ORDERED: DEXAMETHASONE SOD INJ 4 MG/ML VIAL ONE (19:46)
[2016-12-09] MEDS ORDERED: GLYCOPYRROLATE INJ 0.2 MG/ML VIAL ONE (19:46)
[2016-12-09] MEDS ORDERED: NEOSTIGMINE METHYLSULFATE 5 MG/5 ML SYR ONE (19:46)
[2016-12-09] MEDS ORDERED: ROCURONIUM BROMIDE 10 MG/ML 5 ML VIAL IV ONE (19:46)
--- NOTE | 2016-12-09 20:44 | [facility] Operative Report ---
Operative Report Operative Date Dec 09, 2016. Pre-Operative Diagnosis right knee non-healing wound Post-Operative Diagnosis right knee non-healing wound, patellar tendon tear, persistent deep infection Procedure(s) Performed Right Knee Incision and Drainage, Poly Exchange, Patellar tendon repair Surgeon Dr. Kiran Winters Monitor And Storage Bin Tender Surgeon(s) Sai Chance PA-C Estimated Blood Loss 20ml Findings as above Specimens B: right knee tissue Drains 2 hemovac Anesthesia geta Complication(s) None Disposition Recovery Room / PACU Indications 66-year-old female history of obesity and one half pack per day smoking use that. Undergone irrigation and debridement with polyethylene exchange about 4 weeks ago. She has been on IV antibiotics since that time. She had a persistent area in the distal aspect of the incision that was slow to heal despite the antibiotics and wet-to-dry dressing changes. Given the persistence of the open area I felt the best thing would be to be aggressive in her wound management and take her back for a wound closure revision. There was never any surrounding erythema. There was never any purulent drainage. White count was normal but she had elevated sedimentation rate as well as CRP which I was uncertain the significance of given her known treatment for infection and relatively recent irrigation and debridement. Description of Procedure Risks benefits and alternatives of surgery including but not limited to infection DVT pain stiffness need for surgery damage to blood vessels damage to nerves or risks of anesthesia were discussed with the patient and she wished to proceed. Patient was identified in the laterality was confirmed and marked. A well-padded tourniquet was applied and then the limb was prepped and draped in standard manner with ChloraPrep. The limb was exsanguinated and the tourniquet was inflated. The previous incision had a open area measuring about a centimeter in length centimeter in width distal aspect of the incision. There is some mild serous drainage from this region. No purulent drainage. No erythema. There is some minor granulation tissue in the region. I reopened this region and extended a little bit distally. Immediately upon opening this region I found tissue that appeared to be from the patellar tendon and there was tracking deeply. I then extended the incision proximally and dissected skin flaps medially and laterally. There was a automatic spreader operator severe destruction of the medial repair with extension into the patellar tendon. The medial two thirds of the patellar tendon was torn there was about a centimeter and a half of tissue still attached the patella and 1 cm and a half still attached to the tibial tubercle. I'm uncertain if sutures from her previous repair after her washout had cut through this region before if there was a rupture during her rehabilitation or rupture secondary to her infection. The rest of the arthrotomy was intact. The tissues in the area just deep to this open area has some questionable material for persistent infection. This region was cultured both with tissue culture as well as with a swab. I extended the defect and really opened by original medial parapatellar arthrotomy. The tissues more proximally appeared much more healthy and again the arthrotomy had closed from the region of the inferior pole of the patella up proximally. I then performed a thorough debridement down to the level of bone sharply as well as a curet and rongeurs. I removed the previous polyethylene and debrided the posterior capsule. I then thoroughly irrigated the wound with Pulsavac with bacitracin and the fluid for total 9 L. We then changed our gloves placed fresh instruments and placed new drapes down. We then placed a new polyethylene into position this was the same size poly- which was a 3-4 right by 10 mm. A Betadine soak was performed. 2 Hemovac drains were placed. The arthrotomy was then closed with interrupted #1 PDS suture. I then used the #1 PDS suture to also repair the patellar tendon with numerous interrupted sutures. The patellar tendon was in continuity after the repair however the tissue was tenuous at best. No attempt at reconstruction of the patellar tendon was going to be performed secondary to the recent infection. The subcutaneous tissue was closed with interrupted 2-0 Monocryl suture. The skin was closed with a combination of 3-0 and 2-0 nylon. A Prevena wound VAC was placed. Sterile dressings applied and the tourniquet was released. All needle and sponge counts were correct at the end of the procedure patient was transferred to the PACU in stable condition without apparent complication. The leg was then placed in a knee immobilizer. The PA-C was necessary for assistance with procedure for assistance in positioning, prepping, draping, retraction and closure. I attest to the content of the Intraoperative Record and any orders documented therein. Any exceptions are noted below.
[2016-12-09] MEDS ORDERED: ZOLPIDEM TARTRATE 5 MG TAB PO PRN (20:45)
[2016-12-09] MEDS ORDERED: METOCLOPRAMIDE HCL INJ 5 MG/ML 2 ML VIAL IV PRN (20:45)
[2016-12-09] MEDS ORDERED: ALUMINUM/MAGNESIUM/SIMETH (MAALOX MAX) 30 ML UDC PO PRN (20:45)
[2016-12-09] MEDS ORDERED: OXYCODONE HCL IR 5 MG TAB (IMMEDIATE RELEASE) PO PRN (20:45)
[2016-12-09] MEDS ORDERED: MAGNESIUM HYDROXIDE SUSP 30 ML UDC PO PRN (20:45)
[2016-12-09] MEDS ORDERED: MoRPHine SULFATE 2 MG/ML CARP IV PRN (20:45)
--- NOTE | 2016-12-09 20:55 | Anesthesiology Progress Note ---
Anesthesia Post Op Note Date & Time Dec 09, 2016 at 20:55 Vital Signs Pain Intensity: 7 Vital Signs Past 12 Hours Date Time Temp Pulse Resp B/P (MAP) Pulse Ox O2 Delivery O2 Flow Rate FiO2 12/09/16 20:45 98 16 155/87 100 Oxymask 3 12/09/16 20:35 94 16 141/96 100 Oxymask 5 12/09/16 20:25 37.0 99 16 150/85 100 Oxymask 10 12/09/16 14:33 37 89 20 142/64 97 Room Air Notes Mental Status: alert / awake / arousable, participated in evaluation Pt Amnestic to Procedure: Yes Nausea / Vomiting: adequately controlled Pain: adequately controlled Airway Patency, RR, SpO2: stable & adequate BP & HR: stable & adequate Hydration State: stable & adequate Anesthetic Complications: no major complications apparent
[2016-12-09] MEDS ORDERED: ASPIRIN 81 MG ECTAB PO SCH (21:00)
[2016-12-09] MEDS ORDERED: D5W AND 1/2NSS + 20MEQ KCL 1,000 ML IV SCH (21:30)
[2016-12-09 22:00] VITALS: BP 136/78; PULSE 75; TEMP 36.4; O2SAT 99
[2016-12-09] MEDS ORDERED: VANCOMYCIN INJ 1,500 MG in SODIUM CHLORIDE 0.9% 250ML 250 ML IV SCH (22:00)
[2016-12-09] MEDS ORDERED: SODIUM CHLORIDE 0.9% 1000ML 1,000 ML IV ONE (22:15)
[2016-12-09 22:30] VITALS: BP 129/72; PULSE 78; TEMP 36.4; O2SAT 99
--- NOTE | 2016-12-09 22:35 | DIAGNOSTIC IMAGING REPORT ---
R KNEE 1 OR 2 VIEWS ROUTINE CLINICAL HISTORY: Postoperative examination. COMPARISON: 10/18/2016 DISCUSSION: There are postsurgical changes of a total right knee arthroplasty and patellar resurfacing. The femoral and tibial components appear well seated. There are overlying surgical drains. There is air in the soft tissues consistent with recent surgery. There is a joint effusion. IMPRESSION: Postsurgical changes of a total right knee arthroplasty. Electronically signed by: Bijan Myers M.D. 12/09/2016 10:33 PM Dictated Date/Time: 12/09/2016 10:32 PM
[2016-12-09] MEDS ORDERED: OXYCODONE HCL IR 5 MG TAB (IMMEDIATE RELEASE) ONE (22:39)
[2016-12-09] MEDS: ASPIRIN 81 MG ECTAB PO SCH (22:44)
[2016-12-09 23:45] VITALS: BP 158/82; PULSE 82; TEMP 36.7; O2SAT 97
[2016-12-09] MEDS ORDERED: NURSING VERBAL MED ORDER ONE (23:45)
[2016-12-10] VITALS (7 sets, daily range): BP systolic 96–142; BP diastolic 55–75; PULSE 69–82; TEMP 36.5–36.9; O2SAT 91–98
[2016-12-10] MEDS: ACETAMINOPHEN 500 MG TAB PO SCH ×3 (01:40→17:47)
[2016-12-10] MEDS ORDERED: NURSING DECISION MEDICATION ORDER SCH (02:45)
[2016-12-10] MEDS ORDERED: INFLUENZA ADMINISTRATION CHARGE ONE (04:45)
[2016-12-10] MEDS ORDERED: INFLUENZA VACCINE HIGH DOSE 65+ 0.5 ML SYR IM. ONE (04:45)
[2016-12-10] MEDS: MICONAZOLE NITRATE POWDER 43 GM EXT PRN ×2 (05:52→21:35)
[2016-12-10 06:58] LABS: MEAN CELL VOLUME 81.4 fL (80-100); MEAN CORPUSCULAR HEMOGLOBIN 26.7 pg (25-34); MEAN CORPUSCULAR HGB CONC 32.8 g/dl (32-36); MEAN PLATELET VOLUME 10.5 fL (7.4-10.4); PLATELET COUNT 209 K/uL (130-400); RED BLOOD COUNT 3.93 M/uL (4.2-5.4); WHITE BLOOD COUNT 10.82 K/uL (4.8-10.8)
[2016-12-10 07:23] LABS: BUN/CREATININE RATIO 22.1 (10-20); CALCIUM 8.6 mg/dl (8.5-10.1); CREATININE 0.87 mg/dl (0.60-1.20); POTASSIUM 4.4 mmol/L (3.5-5.1)
--- NOTE | 2016-12-10 08:13 | Orthopedic Progress Note ---
Orthopedic Progress Note Date of Service Dec 10, 2016. Subjective Post OP Day: 1 Reports: feeling well, pain controlled w PO medications, Denies: complaints, chest pain, SOB, nausea / vomiting, light headedness, calf pain Additional Notes: Per nursing: IV team had difficulty flushing PICC line, will order CXR to confirm placement. No prn meds ordered but patient doing very well. Objective calves soft nontender, N/V intact, capillary refill less than 2 sec., dressing C /D/I, A&O x3, toes mobile Date Time Temp Pulse Resp B/P (MAP) Pulse Ox O2 Delivery O2 Flow Rate FiO2 12/10/16 07:15 Room Air 12/10/16 03:31 36.9 82 16 121/67 (85) 96 Room Air 12/10/16 00:45 36.5 79 17 124/75 (91) 91 Room Air 12/10/16 00:40 Room Air 12/09/16 23:52 100 Nasal Cannula 2.0 12/09/16 23:45 36.7 82 17 158/82 (107) 97 Room Air 12/09/16 22:30 36.4 78 16 129/72 (91) 99 Nasal Cannula 2.0 12/09/16 22:00 36.4 75 16 136/78 (97) 99 Nasal Cannula 2.0 12/09/16 21:15 80 16 148/75 98 Oxymask 2 12/09/16 21:05 88 14 148/70 100 Oxymask 2 12/09/16 20:55 36.7 89 14 150/77 100 Oxymask 2 12/09/16 20:45 98 16 155/87 100 Oxymask 3 12/09/16 20:35 94 16 141/96 100 Oxymask 5 12/09/16 20:25 37.0 99 16 150/85 100 Oxymask 10 12/09/16 14:33 37 89 20 142/64 97 Room Air Laboratory Results 24 Hours: Test 12/10/16 06:18 Hematocrit 32.0 % Hemoglobin 10.5 g/dL Assessment & Plan Assessment: POD #1, Right knee I&D, poly exchange, patellar tendon repair. Plan: PT/ OT- TTWB w brace and walker DVT proph- ASA D/C planning- Home w HH when stable. Cultures/ gram stain pending, await ID input. Vancomycin order was cancelled by Dr. Sung last night. Unknown why, covering physician agrees with Monicao. It has been re-ordered. Inhouse Planning Pain Management: Celebrex, PO Tylenol, Oxy IR DVT Prophylaxis: ASA Discharge Planning Discharge Planning: home with home health Therapy: Physical Therapy, Occupational Therapy
[2016-12-10] MEDS: LISINOPRIL 10 MG TAB PO SCH (08:58)
[2016-12-10] MEDS: CeleBREX 200 MG CAP PO SCH (08:59)
[2016-12-10] MEDS: PRAVASTATIN SOD 20 MG TAB PO SCH (08:59)
[2016-12-10] MEDS: CALCIUM 600MG + VIT D 400 IU TAB PO SCH (08:59)
[2016-12-10] MEDS: ASPIRIN 81 MG ECTAB PO SCH ×2 (09:00→20:39)
[2016-12-10] MEDS ORDERED: LISINOPRIL/HCTZ 10/12.5MG TAB PO SCH (09:00)
[2016-12-10] MEDS: OXYBUTYNIN CHLORIDE 5 MG TAB PO SCH (09:00)
[2016-12-10] MEDS ORDERED: MULTIVITAMIN TAB PO SCH (09:00)
[2016-12-10] MEDS: PANTOprazole SOD 40 MG TAB PO SCH (09:00)
--- NOTE | 2016-12-10 09:04 | DIAGNOSTIC IMAGING REPORT ---
SINGLE VIEW CHEST CLINICAL HISTORY: PICC placement. FINDINGS: An AP, portable, upright chest radiograph is compared to study dated 09/23/2016 and correlated with chest CT dated 11/10/2016. The examination is degraded by portable technique, large body habitus, and patient rotation. A right PICC line has been placed. The tip of the catheter projects over the SVC. The cardiomediastinal silhouette is unremarkable. There are low lung volumes with mild elevation of the right hemidiaphragm and bibasilar atelectasis. The lungs and pleural spaces are otherwise clear. No pneumothorax is seen. The skeletal structures are osteopenic. The bony thorax is grossly intact. Degenerative change and scoliosis are noted in the thoracic spine. Surgical clips are noted in the upper abdomen. IMPRESSION: 1. Low lung volumes with no active disease in the chest. 2. A right PICC line has been placed. The tip of the catheter projects over the SVC. Electronically signed by: Hans Stewart M.D. 12/10/2016 9:03 AM Dictated Date/Time: 12/10/2016 9:00 AM
[2016-12-10] MEDS: OXYCODONE HCL IR 5 MG TAB (IMMEDIATE RELEASE) PO PRN ×2 (09:08→19:05)
--- NOTE | 2016-12-10 11:32 | Medical Consult ---
History General Date of Service: Dec 10, 2016. Stated Complaint: Right Knee Infection HPI The patient is a 66 year old female who presents to [facility] with complaints of Right Knee Infection. The patient's primary care provider is Debi England M.D.. this is a 66 yo F who underwent Rt total knee replacement surgery on 10/18/16 her post op course was complicated by infection on Rt knee - underwent I&D and poly exchange on 11/[address] Winters wound culture + ve Staph MSSA pt was discharged on IV Rocephin pt continued to have pain and swelling and open wound noted to have ongoing infection s/p repeat I&D , poly exchange and patellar tendon repair on 12/09/16 pt found ambulating on hallway with Rolling walker has moderate pain in rt knee no fever or chills no complain of palpitation , no SOB or chest pain Historian: patient Review of Systems Constitutional: reports: as stated in HPI Cardiovascular: reports: no symptoms Respiratory: reports: no symptoms Gastrointestinal: reports: no symptoms Genitourinary - Female: reports: no symptoms Musculoskeletal: reports: joint pain (rt knee pain ), joint swelling (rt knee swelling ) Neurologic: reports: no symptoms Family History FHx: heart disease Social History Hx Tobacco Use In Past Year?: Yes Smoking Status: Current Every Day Smoker Marital status: Occupational Status: retired Allergies Coded Allergies: No Known Allergies (Verified , 12/09/16) Current Medications Reported Home Medications Medications Dose Route/Sig Max Daily Dose Days Date Category Lisinopril/Hctz 10/12.5 Mg (HCTZ/Lisinopril) 1 Ea Tab 1 Tab PO QAM 12/08/16 Reported Rocephin (Ceftriaxone Sodium) 1 Gm Inj 2 Gm INJ QAM 12/08/16 Reported Aspirin Ec (Aspirin) 81 Mg Tab 81 Mg PO BID 12/08/16 Reported Roxicodone Ir (Oxycodone HCl) 5 Mg Tab 5-10 Mg PO Q6H PRN 12/08/16 Reported Tylenol (Acetaminophen) 500 Mg Tab 1,000 Mg PO PRN 12/08/16 Reported CeleBREX (Celecoxib) 200 Mg Cap 200 Mg PO QAM 11/06/16 Reported Calcium + D (Calcium Carbonate-Vitamin D) 1 Tab Tab 1 Tab PO QAM 09/23/16 Reported Pravachol (Pravastatin Sodium) 20 Mg Tab 40 Mg PO QAM 09/23/16 Reported Ditropan (Oxybutynin Chloride) 5 Mg Tab 5 Mg PO QAM 09/23/16 Reported Nexium (Esomeprazole Magnesium) 40 Mg Capcr 40 Mg PO QAM 09/23/16 Reported Physical Physical Exam Vital Signs: Date Time Temp Pulse Resp B/P (MAP) Pulse Ox O2 Delivery O2 Flow Rate FiO2 12/10/16 11:28 36.6 72 16 114/65 (81) 96 Room Air 12/10/16 09:08 36.6 73 16 112/66 (81) 97 Room Air 12/10/16 07:15 Room Air 12/10/16 03:31 36.9 82 16 121/67 (85) 96 Room Air 12/10/16 00:45 36.5 79 17 124/75 (91) 91 Room Air 12/10/16 00:40 Room Air 12/09/16 23:52 100 Nasal Cannula 2.0 12/09/16 23:45 36.7 82 17 158/82 (107) 97 Room Air 12/09/16 22:30 36.4 78 16 129/72 (91) 99 Nasal Cannula 2.0 12/09/16 22:00 36.4 75 16 136/78 (97) 99 Nasal Cannula 2.0 12/09/16 21:15 80 16 148/75 98 Oxymask 2 12/09/16 21:05 88 14 148/70 100 Oxymask 2 12/09/16 20:55 36.7 89 14 150/77 100 Oxymask 2 12/09/16 20:45 98 16 155/87 100 Oxymask 3 12/09/16 20:35 94 16 141/96 100 Oxymask 5 12/09/16 20:25 37.0 99 16 150/85 100 Oxymask 10 12/09/16 14:33 37 89 20 142/64 97 Room Air General Appearance: WELL-APPEARING, NO APPARENT DISTRESS Eyes: PERRLA, NO DISCHARGE, EOMI, SCLERAE NORMAL Neck: NORMAL RANGE OF MOTION, NO TENDERNESS, TRACHEA MIDLINE, SUPPLE, NO THYROMEGALY Respiratory: BREATH SOUNDS NORMAL, CLEAR TO AUSCULTATION, NO RESPIRATORY DISTRESS Cardiovasular: REGULAR RATE/RHYTHM, NORMAL S1S2 Abdomen: NON TENDER, NORMAL BOWEL SOUNDS Upper Extremities: NO EDEMA, NO DEFORMITY Lower Extremities: other (rt knee s/p surgery , bandage presenet , drain intact ) Neuro: ALERT, ORIENTED x 3, NORMAL MOTOR EXAM, NORMAL SPEECH, NORMAL GAIT Diagnostics Labs Results Past 24 Hours Test 12/10/16 06:18 Range/Units White Blood Count 10.82 4.8-10.8 K/uL Red Blood Count 3.93 4.2-5.4 M/uL Hemoglobin 10.5 12.0-16.0 g/dL Hematocrit 32.0 37-47 % Mean Corpuscular Volume 81.4 80-100 fL Mean Corpuscular Hemoglobin 26.7 25-34 pg Mean Corpuscular Hemoglobin Concent 32.8 32-36 g/dl RDW Standard Deviation 39.7 36.4-46.3 fL RDW Coefficient of Variation 13.1 11.5-14.5 % Platelet Count 209 130-400 K/uL Mean Platelet Volume 10.5 7.4-10.4 fL Sodium Level 136 136-145 mmol/L Potassium Level 4.4 3.5-5.1 mmol/L Chloride Level 105 98-107 mmol/L Carbon Dioxide Level 22 21-32 mmol/L Anion Gap 8.0 3-11 mmol/L Blood Urea Nitrogen 19 7-18 mg/dl Creatinine 0.87 0.60-1.20 mg/dl Est Creatinine Clear Calc Drug Dose 77.8 ml/min Estimated GFR () 80.5 Estimated GFR (Non- 69.4 BUN/Creatinine Ratio 22.1 10-20 Random Glucose 177 70-99 mg/dl Calcium Level 8.6 8.5-10.1 mg/dl Microbiology Results 12/09/16 Gram Stain - Final, Resulted 12/09/16 Bacterial Culture, Resulted Pending Impression Assessment and Plan RT KNEE INFECTION : s/p rt knee surgery approx 8 weeks back recurrent infection -prior wound culture + Staph MSSA repeat I&D , poly exchange and patellar tendon repair done POD #1 cont IV Abx with vancomycin pending wound culture report ID eval requested HTN : BP stable cont out pt med GERD : on PPI FULL CODE DVT PROPHYLAXIS : per Ortho DISPOSITION per Ortho Admit To Med/Surg
[2016-12-10] MEDS ORDERED: VANCOMYCIN CONSULT ACTIVE PRN (12:15)
[2016-12-10] MEDS ORDERED: VANCOMYCIN INJ 2,750 MG in SODIUM CHLORIDE 0.9% 500ML 500 ML IV ONE (13:15)
--- NOTE | 2016-12-10 16:00 | Pharmacy Progress Note ---
Pharmacy Abx Dose Short Note Date of Service Dec 10, 2016. Assessment & Plan Item Value Date Time White Blood Count 10.82 K/uL H 12/10/16617 Creatinine 0.87 mg/dl 12/10/16617 Est Creatinine Clear Calc Drug Dose 77.8 ml/min 12/10/16617 Gram Stain - Final Resulted 12/09/16 1911 Joint Fluid/Space (Synovial) Knee Right Assessment 66 year old female receiving VANC-IV for treatment of right knee infection ( surgery 12/09/16) s/p I&D/polyexchange Day # 1 of antimicrobial therapy. Plan Vancomycin * Estimated p'kinetics: Vd~0.7 L/kg, Ke~0.0708 hr-1, T1/2~9.8 hr-1 * Loading dose: VANC 2750mg (~25mg/kg) IV x 1, then * Maintenance Dose: VANC 1500mg (~14mg/kg) IV every 14 hours. * Goal trough level: 15 to 20 mcg/mL * VANC Trough @ Css prior to 12/12 0600 dose. Pharmacy will continue to follow and will adjust dose/frequency as necessary. Thank you.
--- NOTE | 2016-12-10 17:57 | Medical Consult ---
Consultation Date of Consultation: Dec 10, 2016. Attending Physician: Kiran Winters M.D. Reason for Consultation: Repeat I&D of TKA, on ceftriaxone therapy History of Present Illness 66-year-old female well known to me from previous infectious disease consultation, with history of infected right TKA, status post debridement and poly exchange, with cultures positive for methicillin sensitive Staph aureus. She was treated with IV antibiotics and discharged on IV ceftriaxone, but has had persistent open wound, and now readmitted for further management. Has now undergone operative debridement and wound closure. Operative cultures are pending. Patient currently being treated with IV vancomycin. Has not reported any significant fever. Tolerating antibiotics without apparent difficulty. Pain in knees minimal at present. Past Medical/Surgical History Medical Problems: (1) Post-operative pain Status: Acute Medical Problems: (1) Non-healing wound (2) Right knee DJD Family History FHx: heart disease Social History Smoking Status: Current Every Day Smoker Marital Status: Housing Status: lives with family Occupation Status: retired Allergies Coded Allergies: No Known Allergies (Verified , 12/09/16) Current Inpatient Medications Current Inpatient Medications Medications (Trade) Dose Ordered Sig/Dasha Route Start Time Stop Time Status Last Admin Dose Admin Ondansetron HCl (Zofran Inj) 4 mg ONE PRN IV 12/09/16 16:30 Aspirin (Ecotrin Tab) 81 mg BID PO 12/09/16 21:00 01/08/17 20:59 12/10/16 09:00 81 MG Celecoxib (CeleBREX CAP) 200 mg QAM PO 12/10/16 09:00 01/09/17 08:59 12/10/16 08:59 200 MG Oxybutynin Chloride (Ditropan Tab) 5 mg QAM PO 12/10/16 09:00 01/09/17 08:59 12/10/16 09:00 5 MG Pravastatin Sodium (Pravachol Tab) 40 mg QAM PO 12/10/16 09:00 01/09/17 08:59 12/10/16 08:59 40 MG Calcium/Vitamin D (Caltrate Plus Tab) 1 tab QAM PO 12/10/16 09:00 01/09/17 08:59 12/10/16 08:59 1 TAB Pantoprazole Sodium (Protonix Tab) 40 mg QAM PO 12/10/16 09:00 01/09/17 08:59 12/10/16 09:00 40 MG Acetaminophen (Tylenol Tab) 1,000 mg Q8H PO 12/10/16 02:00 01/09/17 01:59 12/10/16 17:47 1,000 MG Lisinopril (Zestril Tab) 10 mg QAM PO 12/10/16 09:00 01/09/17 08:59 12/10/16 08:58 10 MG Heparin Sodium (Porcine) (Heparin 10 Unit/ ml 5 ml Flush) 5 ml PRN PRN FLUSH 12/09/16 23:45 01/08/17 23:44 Oxycodone HCl (Roxicodone Immediate Rel Tab) `1-2 tabs for pain 1 tab ... Q4H PRN PO 12/09/16 23:45 12/23/16 23:44 12/10/16 09:08 10 MG Miconazole Nitrate (Desenex Powder) 1 appln PRN PRN EXT 12/10/16 03:15 01/09/17 03:14 12/10/16 05:52 1 APPLN Vancomycin HCl (Consult) 1 ea UD PRN N/A 12/10/16 12:15 01/09/17 12:14 Vancomycin HCl 1500 mg/Sodium Chloride 530 ml @ 200 mls/hr Q14H IV 12/11/16 02:00 12/20/16 23:59 Review of Systems all systems were reviewed and are negative except as per HPI Physical Exam Date Time Temp Pulse Resp B/P (MAP) Pulse Ox O2 Delivery O2 Flow Rate FiO2 12/10/16 16:03 36.8 73 16 114/70 (85) 98 Room Air 12/10/16 15:30 Room Air 12/10/16 11:28 36.6 72 16 114/65 (81) 96 Room Air 12/10/16 09:08 36.6 73 16 112/66 (81) 97 Room Air 12/10/16 07:15 Room Air 12/10/16 03:31 36.9 82 16 121/67 (85) 96 Room Air 12/10/16 00:45 36.5 79 17 124/75 (91) 91 Room Air 12/10/16 00:40 Room Air 12/09/16 23:52 100 Nasal Cannula 2.0 12/09/16 23:45 36.7 82 17 158/82 (107) 97 Room Air 12/09/16 22:30 36.4 78 16 129/72 (91) 99 Nasal Cannula 2.0 12/09/16 22:00 36.4 75 16 136/78 (97) 99 Nasal Cannula 2.0 12/09/16 21:15 80 16 148/75 98 Oxymask 2 12/09/16 21:05 88 14 148/70 100 Oxymask 2 12/09/16 20:55 36.7 89 14 150/77 100 Oxymask 2 12/09/16 20:45 98 16 155/87 100 Oxymask 3 12/09/16 20:35 94 16 141/96 100 Oxymask 5 12/09/16 20:25 37.0 99 16 150/85 100 Oxymask 10 General Appearance: WD/WN, no apparent distress Head: normocephalic, atraumatic Eyes: normal inspection, EOMI, sclerae normal ENT: normal ENT inspection, hearing grossly normal, pharynx normal Neck: supple, no adenopathy, thyroid normal Respiratory/Chest: chest non-tender, lungs clear, normal breath sounds, no respiratory distress Cardiovascular: regular rate, rhythm, no gallop, no murmur Abdomen/GI: normal bowel sounds, non tender, soft, no organomegaly Back: normal inspection, no CVA tenderness Extremities/Musculoskelatal: no calf tenderness, normal capillary refill Neurologic/Psych: alert, normal mood/affect, oriented x 3 Skin: normal color, warm/dry, no rash, + pertinent finding ( surgical dressing intact, drains in place, right knee) Lymphatic: no adenopathy Laboratory Results Date/Time Source Procedure Growth Status 12/09/16 19:11 Joint Fluid/Space (Synovial) Knee Right Gram Stain - Final Resulted 12/09/16 19:11 Joint Fluid/Space (Synovial) Knee Right Bacterial Culture Pending Resulted Last 24 Hours Test 12/10/16 06:18 White Blood Count 10.82 K/uL Red Blood Count 3.93 M/uL Hemoglobin 10.5 g/dL Hematocrit 32.0 % Mean Corpuscular Volume 81.4 fL Mean Corpuscular Hemoglobin 26.7 pg Mean Corpuscular Hemoglobin Concent 32.8 g/dl RDW Standard Deviation 39.7 fL RDW Coefficient of Variation 13.1 % Platelet Count 209 K/uL Mean Platelet Volume 10.5 fL Sodium Level 136 mmol/L Potassium Level 4.4 mmol/L Chloride Level 105 mmol/L Carbon Dioxide Level 22 mmol/L Anion Gap 8.0 mmol/L Blood Urea Nitrogen 19 mg/dl Creatinine 0.87 mg/dl Est Creatinine Clear Calc Drug Dose 77.8 ml/min Estimated GFR () 80.5 Estimated GFR (Non- 69.4 BUN/Creatinine Ratio 22.1 Random Glucose 177 mg/dl Calcium Level 8.6 mg/dl Patient Name: JAN ESPAÑA Unit Number: [id number] Dictated: 12/10/16899 Transcribed: 12/10/16899 EV Printed Date/Time: [~ rep prt dt]/[~ rep prt tm] [~ rep ct labl] - [~ rep ct ivnm] [facility] [place] [address] Dictated: 12/10/16899 Transcribed: 12/10/16899 EV Printed Date/Time: [~ rep prt dt]/[~ rep prt tm] [~ rep ct labl] - [~ rep ct ivnm] SINGLE VIEW CHEST CLINICAL HISTORY: PICC placement. FINDINGS: An AP, portable, upright chest radiograph is compared to study dated 09/23/2016 and correlated with chest CT dated 11/10/2016. The examination is degraded by portable technique, large body habitus, and patient rotation. A right PICC line has been placed. The tip of the catheter projects over the SVC. The cardiomediastinal silhouette is unremarkable. There are low lung volumes with mild elevation of the right hemidiaphragm and bibasilar atelectasis. The lungs and pleural spaces are otherwise clear. No pneumothorax is seen. The skeletal structures are osteopenic. The bony thorax is grossly intact. Degenerative change and scoliosis are noted in the thoracic spine. Surgical clips are noted in the upper abdomen. IMPRESSION: 1. Low lung volumes with no active disease in the chest. 2. A right PICC line has been placed. The tip of the catheter projects over the SVC. Electronically signed by: Hans Stewart M.D. 12/10/2016 9:03 AM Dictated Date/Time: 12/10/2016 9:00 AM The status of this report is Signed. Draft = Not yet reviewed or approved by Radiologist. Signed = Reviewed and approved by Radiologist. <AttendingPhy>Kiran Winters M.D.</AttendingPhy> <FamilyPhy>Debi England M.D.</FamilyPhy> <PrimaryPhy>Debi England M.D.</PrimaryPhy> <UnitNumber> [id number]</UnitNumber> <VisitNumber>[id number]</VisitNumber> <PatientName> PATRIAJAN J</PatientName> <DateOfBirth>1950</DateOfBirth> <Location> C[facility]</Location> <ServiceDate>12/09/16</ServiceDate> <MNE>ESINDI</MNE> < OrderingPhy>Ben Robles PAC</OrderingPhy> <OrderingPhyMNE>f rep ord dr magana</ OrderingPhyMNE> <DictatingPhyMNE>f rep dict dr magana</DictatingPhyMNE> <CCListMNE> f rep ct mne</CCListMNE> <AdmittingPhyMNE>f pt admit dr magana</AdmittingPhyMNE> < AttendingPhyMNE>f pt attend dr magana</AttendingPhyMNE> <ConsultingPhyMNE>f pt consult dr magana</ConsultingPhyMNE> <FamilyPhyMNE>f pt fam dr magana</FamilyPhyMNE> <OtherPhyMNE>f pt other dr magana</OtherPhyMNE> < PrimaryPhyMNE>f pt prim care dr magana</PrimaryPhyMNE> <ReferringPhyMNE>f pt referring dr magana</ReferringPhyMNE> Assessment & Plan 66-year-old female with infected right TKA, with previous infection with methicillin sensitive Staph aureus. Now with persistent open wound, possible tendon tear, now status post surgical intervention. Vancomycin appropriate pending final operative cultures and sensitivities. Will adjust once available. Will follow.
[2016-12-11] MEDS: VANCOMYCIN INJ 1,500 MG in SODIUM CHLORIDE 0.9% 500ML 500 ML IV SCH ×2 (01:48→15:31)
[2016-12-11] MEDS: ACETAMINOPHEN 500 MG TAB PO SCH ×3 (01:49→18:29)
[2016-12-11 06:04] LABS: HEMATOCRIT 30.6 % (37-47); MEAN CELL VOLUME 82.9 fL (80-100); MEAN CORPUSCULAR HEMOGLOBIN 27.1 pg (25-34); MEAN CORPUSCULAR HGB CONC 32.7 g/dl (32-36); MEAN PLATELET VOLUME 9.9 fL (7.4-10.4); PLATELET COUNT 190 K/uL (130-400); RED BLOOD COUNT 3.69 M/uL (4.2-5.4); WHITE BLOOD COUNT 8.88 K/uL (4.8-10.8)
[2016-12-11 06:14] LABS: INR 0.9 (0.9-1.1); PROTHROMBIN TIME (PATIENT) 10.1 SECONDS (9.0-12.0)
[2016-12-11 06:38] LABS: BUN/CREATININE RATIO 21.6 (10-20); CALCIUM 8.6 mg/dl (8.5-10.1); CREATININE 0.78 mg/dl (0.60-1.20); POTASSIUM 4.2 mmol/L (3.5-5.1)
[2016-12-11] MEDS ORDERED: PNEUMOCOCCAL ADMINISTRATION CHARGE ONE (07:15)
[2016-12-11] MEDS ORDERED: PNEUMOCOCCAL POLYSACCHARIDES 25 MCG/0.5 ML VIAL/SYR IM. ONE (07:15)
[2016-12-11 07:20] VITALS: BP 111/71; PULSE 63; TEMP 36.7; O2SAT 99
--- NOTE | 2016-12-11 08:37 | Orthopedic Progress Note ---
Orthopedic Progress Note Date of Service Dec 11, 2016. Subjective Post OP Day: 2 Reports: feeling well, pain controlled w PO medications, Denies: complaints, chest pain, SOB, nausea / vomiting, light headedness, calf pain Objective calves soft nontender, N/V intact, capillary refill less than 2 sec., dressing C /D/I, A&O x3, toes mobile PROVENA IN TACT Date Time Temp Pulse Resp B/P (MAP) Pulse Ox O2 Delivery O2 Flow Rate FiO2 12/11/16 07:20 36.7 63 18 111/71 (84) 99 Room Air 12/11/16 07:15 Room Air 12/10/16 23:35 Room Air 12/10/16 23:20 36.7 69 16 96/55 (69) 96 Room Air 12/10/16 19:10 36.8 77 16 142/70 (94) 97 Room Air 12/10/16 16:03 36.8 73 16 114/70 (85) 98 Room Air 12/10/16 15:30 Room Air 12/10/16 11:28 36.6 72 16 114/65 (81) 96 Room Air 12/10/16 09:08 36.6 73 16 112/66 (81) 97 Room Air Laboratory Results 24 Hours: Test 12/11/16 05:43 Hematocrit 30.6 % Hemoglobin 10.0 g/dL Prothromb Time International Ratio 0.9 Prothrombin Time 10.1 SECONDS Assessment & Plan Assessment: POD #2, Right knee I&D, poly exchange, patellar tendon repair. Plan: PT/ OT- TTWB w brace and walker DVT proph- ASA D/C planning- Home w HH when stable. Cultures/ gram stain pending. ID continuing vanco until final cxs HemaVac 50cc will change dressing today. Inhouse Planning Pain Management: Celebrex, PO Tylenol, Oxy IR DVT Prophylaxis: ASA Discharge Planning Discharge Planning: home with home health Therapy: Physical Therapy, Occupational Therapy
[2016-12-11] MEDS: PRAVASTATIN SOD 20 MG TAB PO SCH (08:56)
[2016-12-11] MEDS: LISINOPRIL 10 MG TAB PO SCH (08:56)
[2016-12-11] MEDS: CALCIUM 600MG + VIT D 400 IU TAB PO SCH (08:56)
[2016-12-11] MEDS: PANTOprazole SOD 40 MG TAB PO SCH (08:56)
[2016-12-11] MEDS: CeleBREX 200 MG CAP PO SCH (08:57)
[2016-12-11] MEDS: ASPIRIN 81 MG ECTAB PO SCH ×2 (08:57→20:30)
[2016-12-11] MEDS: OXYBUTYNIN CHLORIDE 5 MG TAB PO SCH (08:57)
[2016-12-11 11:05] VITALS: BP 111/71; PULSE 63; O2SAT 99
[2016-12-11 14:54] VITALS: BP 97/62; PULSE 79; TEMP 37; O2SAT 99
--- NOTE | 2016-12-11 18:25 | Progress Note ---
Internal Med Progress Note Date of Service: Dec 11, 2016. Provider Documentation: SUBJECTIVE: pt was sitting on chair , very pleasant no complain of pain or discomfort able ambulate with walker , still on toe touch on rt lower ext no fever or chills no complain of palpitation , no SOB or chest discomfort OBJECTIVE: Vital Signs-as noted below Exam: General-very pleasant , no sign of discomfort Eyes-sclera non icteric , PERRLA/EOMI ENT-NAD Neck-no thyromegaly , trachea midline Lungs-CTA, no wheeze or rales Heart-regular S1/S2 Abdomen-soft ,non tender Extremities-rt knee s/p surgery , drain present Neuro-AAO x3, no focal deficit Lab data as noted below. ASSESSMENT & PLAN: RT KNEE INFECTION : s/p rt knee surgery approx 8 weeks back recurrent infection -prior wound culture + Staph MSSA pt is on empiric tx withIV Vancomycin repeat I&D , poly exchange and patellar tendon repair done on 12/09/16 POD #2 wound culture -no growth ID following HTN : BP stable cont out pt med GERD : on PPI FULL CODE DVT PROPHYLAXIS : per Ortho DISPOSITION per Ortho Vital Signs: Date Time Temp Pulse Resp B/P (MAP) Pulse Ox O2 Delivery O2 Flow Rate FiO2 12/11/16 15:20 Room Air 12/11/16 14:54 37.0 79 17 97/62 (74) 99 Room Air 12/11/16 11:05 63 99 12/11/16 07:20 36.7 63 18 111/71 (84) 99 Room Air 12/11/16 07:15 Room Air 12/10/16 23:35 Room Air 12/10/16 23:20 36.7 69 16 96/55 (69) 96 Room Air 12/10/16 19:10 36.8 77 16 142/70 (94) 97 Room Air Lab Results: Results Past 24 Hours Test 12/11/16 05:43 Range/Units White Blood Count 8.88 4.8-10.8 K/uL Red Blood Count 3.69 4.2-5.4 M/uL Hemoglobin 10.0 12.0-16.0 g/dL Hematocrit 30.6 37-47 % Mean Corpuscular Volume 82.9 80-100 fL Mean Corpuscular Hemoglobin 27.1 25-34 pg Mean Corpuscular Hemoglobin Concent 32.7 32-36 g/dl RDW Standard Deviation 41.4 36.4-46.3 fL RDW Coefficient of Variation 13.6 11.5-14.5 % Platelet Count 190 130-400 K/uL Mean Platelet Volume 9.9 7.4-10.4 fL Prothrombin Time 10.1 9.0-12.0 SECONDS Prothromb Time International Ratio 0.9 0.9-1.1 Sodium Level 141 136-145 mmol/L Potassium Level 4.2 3.5-5.1 mmol/L Chloride Level 108 98-107 mmol/L Carbon Dioxide Level 26 21-32 mmol/L Anion Gap 7.0 3-11 mmol/L Blood Urea Nitrogen 17 7-18 mg/dl Creatinine 0.78 0.60-1.20 mg/dl Est Creatinine Clear Calc Drug Dose 86.8 ml/min Estimated GFR () 91.8 Estimated GFR (Non- 79.2 BUN/Creatinine Ratio 21.6 10-20 Random Glucose 115 70-99 mg/dl Calcium Level 8.6 8.5-10.1 mg/dl
[2016-12-11] MEDS ORDERED: TRAMADOL HCL 50 MG TAB PO PRN (18:30)
[2016-12-11 23:07] VITALS: BP 132/78; PULSE 66; TEMP 36.7; O2SAT 97
[2016-12-12] MEDS: ACETAMINOPHEN 500 MG TAB PO SCH ×3 (01:56→18:07)
[2016-12-12] MEDS ORDERED: VANCOMYCIN TROUGH ONE (05:30)
[2016-12-12] MEDS: VANCOMYCIN INJ 1,500 MG in SODIUM CHLORIDE 0.9% 500ML 500 ML IV SCH (06:03)
[2016-12-12 06:15] LABS: HEMATOCRIT 34.7 % (37-47); MEAN CELL VOLUME 83.2 fL (80-100); MEAN CORPUSCULAR HEMOGLOBIN 26.9 pg (25-34); MEAN CORPUSCULAR HGB CONC 32.3 g/dl (32-36); MEAN PLATELET VOLUME 10.4 fL (7.4-10.4); PLATELET COUNT 269 K/uL (130-400); RED BLOOD COUNT 4.17 M/uL (4.2-5.4); WHITE BLOOD COUNT 10.32 K/uL (4.8-10.8)
[2016-12-12 06:29] VITALS: BP 124/77; PULSE 69; TEMP 36.6; O2SAT 97
[2016-12-12 06:39] LABS: BUN/CREATININE RATIO 13.5 (10-20); CALCIUM 9.3 mg/dl (8.5-10.1); CREATININE 0.95 mg/dl (0.60-1.20); POTASSIUM 4.1 mmol/L (3.5-5.1)
--- NOTE | 2016-12-12 06:51 | Orthopedic Progress Note ---
Orthopedic Progress Note Date of Service Dec 12, 2016. Subjective Post OP Day: 3 Reports: feeling well, pain controlled w PO medications, Denies: complaints, chest pain, SOB, nausea / vomiting, light headedness, calf pain Objective calves soft nontender, N/V intact, capillary refill less than 2 sec., dressing C /D/I, A&O x3, toes mobile Date Time Temp Pulse Resp B/P (MAP) Pulse Ox O2 Delivery O2 Flow Rate FiO2 12/12/16 06:29 36.6 69 16 124/77 (93) 97 Room Air 12/11/16 23:20 Room Air 12/11/16 23:07 36.7 66 16 132/78 (96) 97 Room Air 12/11/16 15:20 Room Air 12/11/16 14:54 37.0 79 17 97/62 (74) 99 Room Air 12/11/16 11:05 63 99 12/11/16 07:20 36.7 63 18 111/71 (84) 99 Room Air 12/11/16 07:15 Room Air Laboratory Results 24 Hours: Test 12/12/16 06:01 Hematocrit 34.7 % Hemoglobin 11.2 g/dL Assessment & Plan Assessment: POD #3, Right knee I&D, poly exchange, patellar tendon repair. Plan: PT/ OT- TTWB w brace and walker DVT proph- ASA D/C planning- Home w HH when stable. Cultures pending, gram stain negative. Cultures likely to produce no growth due to being on antibiotics previously. ID continuing vanco and awaiting further recommendations. Inhouse Planning Pain Management: Celebrex, PO Tylenol, Oxy IR DVT Prophylaxis: ASA Discharge Planning Discharge Planning: home with home health Therapy: Physical Therapy, Occupational Therapy
[2016-12-12] MEDS: PRAVASTATIN SOD 20 MG TAB PO SCH (07:20)
[2016-12-12] MEDS: PANTOprazole SOD 40 MG TAB PO SCH (07:20)
[2016-12-12] MEDS: LISINOPRIL 10 MG TAB PO SCH (07:21)
[2016-12-12] MEDS: OXYCODONE HCL IR 5 MG TAB (IMMEDIATE RELEASE) PO PRN (07:22)
[2016-12-12] MEDS: CeleBREX 200 MG CAP PO SCH (07:22)
[2016-12-12] MEDS: CALCIUM 600MG + VIT D 400 IU TAB PO SCH (07:23)
[2016-12-12] MEDS: OXYBUTYNIN CHLORIDE 5 MG TAB PO SCH (07:23)
[2016-12-12] MEDS: ASPIRIN 81 MG ECTAB PO SCH ×2 (07:23→20:45)
--- NOTE | 2016-12-12 08:13 | Anesthesiology Progress Note ---
Anesthesia Post Op Note Date & Time Dec 12, 2016 at 08:11 Vital Signs Pain Intensity: 0.0 Vital Signs Past 12 Hours Date Time Temp Pulse Resp B/P (MAP) Pulse Ox O2 Delivery O2 Flow Rate FiO2 12/12/16 06:29 36.6 69 16 124/77 (93) 97 Room Air 12/11/16 23:20 Room Air 12/11/16 23:07 36.7 66 16 132/78 (96) 97 Room Air Notes Mental Status: alert / awake / arousable Pt Amnestic to Procedure: Yes Nausea / Vomiting: adequately controlled Pain: adequately controlled Airway Patency, RR, SpO2: stable & adequate BP & HR: stable & adequate Hydration State: stable & adequate pt c/o "Floaters" in her eye that started this morning 12/12/16; otherwise no complications
--- NOTE | 2016-12-12 13:30 | Pharmacy Progress Note ---
Pharmacy Abx Dose Short Note Date of Service Dec 12, 2016. Assessment & Plan Assessment 66 year old female receiving VANC-IV for treatment of right knee infection ( surgery 12/09/16) s/p I&D/polyexchange Day # 3 of antimicrobial therapy. Item Value Date Time Vancomycin Level Trough 19.4 mcg/ml 12/12/16 0601 Item Value Date Time Gram Stain - Final Complete 12/09/16 1911 Joint Fluid/Space (Synovial) Knee Right No growth Renal function stable and at near baseline. Vanco trough level of 19.4 mcg/mL is therapeutic however patient is at risk for acculumation secondary to high BMI. Will decrease dose slightly. Goal trough 15-20 mcg/mL. Plan Vancomycin * Decrease to 1250 mg IV every 14 hours * Trough level ordered for: 12/14/16 @ 1330. Pharmacy will continue to follow and will adjust dose/frequency as necessary. Thank you.
--- NOTE | 2016-12-12 14:24 | Discharge Instructions ---
Discharge Instructions Date of Service Dec 12, 2016. Admission Reason for Admission: Right Knee Infection Discharge Discharge Diagnosis / Problem: sp right TKA Discharge Goals Goal(s): Decrease discomfort, Improve function, Increase independence Activity Recommendations Activity Limitations: per Instructions/Follow-up section . Instructions / Follow-Up Instructions / Follow-Up ACTIVITY RECOMMENDATIONS: SELF CARE INSTRUCTIONS AFTER TOTAL KNEE REPLACEMENT A. You may need to continue a physical therapy program after discharge from the hospital. There are several options available to you. Your doctor will assist you in selecting the best one for you. 1. An out-patient facility 2 to 3 times a week for therapy or home therapy. 2. Continue working on all exercises taught to you in the hospital. Your goals should be to increase bending of your knee to 90 degrees and beyond and to fully straighten your knee. B. You may progress at your own pace from walking with a walker or crutches to a cane; then to no assistive devices. C. Make walking a part of your daily routine. Be up as much as comfortable with rest periods throughout the day. Rest with leg elevation is very important. Use the ice wrap frequently for the first 3-4 weeks. D. There are no restrictions on activities. 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 E. Wear the long elastic stockings (RENA hose) 20 hours a day for 2 weeks after surgery. They can be removed several times a day for laundering and for a bath. F. You may shower, no tub baths until cleared by your doctor. SPECIAL CARE INSTRUCTIONS: VERY IMPORTANT TO READ AND REVIEW A. There are a few signs you need to watch for after you are home. Call [facility] if you notice any of the followin. Increased severe knee pain. Some pain is expected especially when you exercise. 2. Increased swelling in your leg or knee; pain or swelling of the calf muscle in either lower leg. 3. Any fluid drainage from the incision. 4. Shortness of breath or chest pain. B. Please call [facility] at if you have any concerns or questions about your operation or recovery. The doctor or his nurse will return your call promptly. C. You must take antibiotics before dental work, bladder, bowel or other surgery. Your doctor will provide you with a permanent care to carry describing this precaution. IMPORTANT: * REMEMBER TO TAKE ASPIRIN, 81 MG, TWICE DAILY FOR 4 WEEKS UNLESS OTHERWISE DIRECTED. THIS IS YOUR BLOOD THINNER. * HIGH RISK PATIENTS MAY BE PRESCRIBED A STRONGER BLOOD THINNER. THIS WILL BE PROVIDED AT DISCHARGE. * CALL IF INCREASED PAIN, REDNESS, DRAINAGE OR FEVER GREATER THAT 101. * WEAR RENA HOSE 20 HOURS PER DAY FOR 2 WEEKS. Prevena- This is a large suction dressing covering your incision. This will help pull any excess drainage from the wound and allow your incision to heal properly. You may shower with this if you can keep the unit outside of the shower. If any bleeding or leakage is noted please call your doctor's office. This will remain on your incision for 7 days and then should be removed. This can be done yourself or by the home nursing staff if applicable. The entire unit is disposable once removed. Once removed, keep incision clean and dry. If redness or drainage is noted, please call your surgeon. WILL NEED CONTINUED IV VANCOMYCIN X 6 WEEKS. FOLLOW UP VISIT: If appointment is not already scheduled: Please call [facility] to make a follow-up appointment for 2 weeks after your surgery at . Current Hospital Diet Patient's current hospital diet: Regular Diet Discharge Diet Recommended Diet: Regular Diet Procedures Procedures Performed: Right Knee Incision and Drainage, Poly Exchange, Patellar tendon repair Pending Studies Studies pending at discharge: no Laboratory Results Hemoglobin A1c Test 12/07/16 13:06 Range/Units Estimated Average Glucose 111 mg/dl Hemoglobin A1c 5.5 4.5-5.6 % Medical Emergencies . Who to Call and When: Medical Emergencies: If at any time you feel your situation is an emergency, please call 911 immediately. . Non-Emergent Contact Non-Emergency issues call your: Surgeon . "Provider Documentation" section prepared by Rosa Todd. . VTE Core Measure Inpt VTE Proph given/why not?: Other Anticoagulation, T.E.D. Stockings, SCD's
[2016-12-12 14:55] VITALS: BP 125/77; PULSE 68; TEMP 36.5; O2SAT 97
[2016-12-12 15:30] VITALS: O2SAT 97
--- NOTE | 2016-12-12 16:34 | Infectious Disease Progress Nt ---
Progress Note Date of Service Dec 12, 2016. Subjective Pt evaluation today including: conversation w/ patient, physical exam, chart review, lab review, review of studies, conversation w/ child development consultant, review of inpatient medication list Patient states she feels well, no fever, pain controlled. Tolerating antibiotic without apparent difficulty. Operative cultures remain no growth. All Other Systems: Reviewed and Negative Medications Current Inpatient Medications Medications (Trade) Dose Ordered Sig/Dasha Route Start Time Stop Time Status Last Admin Dose Admin Ondansetron HCl (Zofran Inj) 4 mg ONE PRN IV 12/09/16 16:30 Aspirin (Ecotrin Tab) 81 mg BID PO 12/09/16 21:00 01/08/17 20:59 12/12/16 07:23 81 MG Celecoxib (CeleBREX CAP) 200 mg QAM PO 12/10/16 09:00 01/09/17 08:59 12/12/16 07:22 200 MG Oxybutynin Chloride (Ditropan Tab) 5 mg QAM PO 12/10/16 09:00 01/09/17 08:59 12/12/16 07:23 5 MG Pravastatin Sodium (Pravachol Tab) 40 mg QAM PO 12/10/16 09:00 01/09/17 08:59 12/12/16 07:20 40 MG Calcium/Vitamin D (Caltrate Plus Tab) 1 tab QAM PO 12/10/16 09:00 01/09/17 08:59 12/12/16 07:23 1 TAB Pantoprazole Sodium (Protonix Tab) 40 mg QAM PO 12/10/16 09:00 01/09/17 08:59 12/12/16 07:20 40 MG Acetaminophen (Tylenol Tab) 1,000 mg Q8H PO 12/10/16 02:00 01/09/17 01:59 12/12/16 10:21 1,000 MG Lisinopril (Zestril Tab) 10 mg QAM PO 12/10/16 09:00 01/09/17 08:59 12/12/16 07:21 10 MG Heparin Sodium (Porcine) (Heparin 10 Unit/ ml 5 ml Flush) 5 ml PRN PRN FLUSH 12/09/16 23:45 01/08/17 23:44 12/12/16 09:08 5 ML Oxycodone HCl (Roxicodone Immediate Rel Tab) `1-2 tabs for pain 1 tab ... Q4H PRN PO 12/09/16 23:45 12/23/16 23:44 12/12/16 07:22 10 MG Miconazole Nitrate (Desenex Powder) 1 appln PRN PRN EXT 12/10/16 03:15 01/09/17 03:14 12/10/16 21:35 1 APPLN Tramadol HCl (Ultram Tab) 50 mg Q6 PRN PO 12/11/16 18:30 01/10/17 18:29 Daptomycin 650 mg/ Sodium Chloride 63 ml @ 100 mls/hr DAILY IV 12/12/16 16:30 01/23/17 16:29 Objective Vital Signs Date Time Temp Pulse Resp B/P (MAP) Pulse Ox O2 Delivery O2 Flow Rate FiO2 12/12/16 14:55 36.5 68 20 125/77 (93) 97 Room Air 12/12/16 07:15 Room Air 12/12/16 06:29 36.6 69 16 124/77 (93) 97 Room Air 12/11/16 23:20 Room Air 12/11/16 23:07 36.7 66 16 132/78 (96) 97 Room Air Physical Exam General Appearance: WD/WN, no apparent distress Eyes: normal inspection, EOMI, sclerae normal ENT: normal ENT inspection, pharynx normal Neck: supple, no adenopathy, trachea midline Respiratory/Chest: chest non-tender, lungs clear, normal breath sounds, no respiratory distress Cardiovascular: regular rate, rhythm, no gallop, no murmur Abdomen: normal bowel sounds, non tender, soft, no organomegaly Extremities: non-tender, no calf tenderness, normal capillary refill Neurologic/Psychiatric: alert, normal mood/affect, oriented x 3 Skin: normal color, no rash Lymphatic: no adenopathy Laboratory Results RUN DATE: 12/12/16 [facility] LAB PAGE 1 RUN TIME: 1050 Specimen Inquiry PATIENT: JAN ESPAÑA LOC: Noemi U # : [id number] AGE/SX: 66/F ROOM: E304 REG : 12/09/[address]: Kiran Winters M.D. : 1950 BED: 1 DIS : STATUS: ADM IN TLOC: SPEC #: [id number] LAI: 12/09/16 STATUS: COMP REQ #: [id number] RECD: 12/10/[address]: Kiran Winters M.D. SOURCE: JOINT FLSP ENTR: 12/10/[address] [facility] [address]: Dejan [facility] Valerio Sung M.D. Pacheco, Cybele M.D. ORDERED: NICOLE TODD/SP MERLINE/ANGELIKA Procedure Result Verified Site GRAM STAIN Final 12/10/16-1003 RESULT FEW WBCs SEEN NO ORGANISMS SEEN JOINT FLUID/SPACE CULTURE Final 12/12/16-1050 NO GROWTH Last 24 Hours Test 12/12/16 06:01 White Blood Count 10.32 K/uL Red Blood Count 4.17 M/uL Hemoglobin 11.2 g/dL Hematocrit 34.7 % Mean Corpuscular Volume 83.2 fL Mean Corpuscular Hemoglobin 26.9 pg Mean Corpuscular Hemoglobin Concent 32.3 g/dl RDW Standard Deviation 41.8 fL RDW Coefficient of Variation 13.8 % Platelet Count 269 K/uL Mean Platelet Volume 10.4 fL Sodium Level 142 mmol/L Potassium Level 4.1 mmol/L Chloride Level 109 mmol/L Carbon Dioxide Level 26 mmol/L Anion Gap 7.0 mmol/L Blood Urea Nitrogen 13 mg/dl Creatinine 0.95 mg/dl Est Creatinine Clear Calc Drug Dose 71.2 ml/min Estimated GFR () 72.3 Estimated GFR (Non- 62.4 BUN/Creatinine Ratio 13.5 Random Glucose 122 mg/dl Calcium Level 9.3 mg/dl Vancomycin Level Trough 19.4 mcg/ml Assessment and Plan 66-year-old female with infected right TKA with methicillin sensitive Staph aureus, now with open wound status post closure. Operative cultures all negative. Would recommend continuing patient on IV ceftriaxone given negative cultures, will follow-up in the office in 2 weeks.
--- NOTE | 2016-12-12 17:48 | Progress Note ---
Internal Med Progress Note Date of Service: Dec 12, 2016. Provider Documentation: SUBJECTIVE: no complain of pain or discomfort no fever or chills OBJECTIVE: Vital Signs-as noted below Exam: General-very pleasant , no sign of discomfort Eyes-sclera non icteric , PERRLA/EOMI ENT-NAD Neck-no thyromegaly , trachea midline Lungs-CTA, no wheeze or rales Heart-regular S1/S2 Abdomen-soft ,non tender Extremities-rt knee s/p surgery , drain present Neuro-AAO x3, no focal deficit Lab data as noted below. ASSESSMENT & PLAN: RT KNEE INFECTION : s/p rt knee surgery approx 8 weeks back recurrent infection -prior wound culture + Staph MSSA pt is on empiric tx with IV Vancomycin repeat I&D , poly exchange and patellar tendon repair done on 12/09/16 POD #3 wound culture -no growth ID following -recommend -given negative culture pt can switched to IV Rocephin on discharge follow up with ID in 2 weeks HTN : BP stable cont out pt med GERD : on PPI FULL CODE DVT PROPHYLAXIS : per Ortho DISPOSITION per Ortho Vital Signs: Date Time Temp Pulse Resp B/P (MAP) Pulse Ox O2 Delivery O2 Flow Rate FiO2 12/12/16 15:30 97 Room Air 12/12/16 14:55 36.5 68 20 125/77 (93) 97 Room Air 12/12/16 07:15 Room Air 12/12/16 06:29 36.6 69 16 124/77 (93) 97 Room Air 12/11/16 23:20 Room Air 12/11/16 23:07 36.7 66 16 132/78 (96) 97 Room Air Lab Results: Results Past 24 Hours Test 12/12/16 06:01 Range/Units White Blood Count 10.32 4.8-10.8 K/uL Red Blood Count 4.17 4.2-5.4 M/uL Hemoglobin 11.2 12.0-16.0 g/dL Hematocrit 34.7 37-47 % Mean Corpuscular Volume 83.2 80-100 fL Mean Corpuscular Hemoglobin 26.9 25-34 pg Mean Corpuscular Hemoglobin Concent 32.3 32-36 g/dl RDW Standard Deviation 41.8 36.4-46.3 fL RDW Coefficient of Variation 13.8 11.5-14.5 % Platelet Count 269 130-400 K/uL Mean Platelet Volume 10.4 7.4-10.4 fL Sodium Level 142 136-145 mmol/L Potassium Level 4.1 3.5-5.1 mmol/L Chloride Level 109 98-107 mmol/L Carbon Dioxide Level 26 21-32 mmol/L Anion Gap 7.0 3-11 mmol/L Blood Urea Nitrogen 13 7-18 mg/dl Creatinine 0.95 0.60-1.20 mg/dl Est Creatinine Clear Calc Drug Dose 71.2 ml/min Estimated GFR () 72.3 Estimated GFR (Non- 62.4 BUN/Creatinine Ratio 13.5 10-20 Random Glucose 122 70-99 mg/dl Calcium Level 9.3 8.5-10.1 mg/dl Vancomycin Level Trough 19.4 SEE COMMENT mcg/ml
[2016-12-12] MEDS: DAPTOmycin IV 650 MG in SODIUM CHLORIDE 0.9% 50ML 50 ML IV SCH (17:58)
[2016-12-12] MEDS ORDERED: VANCOMYCIN INJ 1,250 MG in SODIUM CHLORIDE 0.9% 250ML 250 ML IV SCH (20:00)
[2016-12-12 20:52] VITALS: O2SAT 97
[2016-12-12] MEDS ORDERED: ASPIRIN 81 MG ECTAB PO SCH (21:00)
[2016-12-12 22:43] VITALS: BP 115/65; PULSE 78; TEMP 36.6; O2SAT 97
[2016-12-13] MEDS: ACETAMINOPHEN 500 MG TAB PO SCH ×2 (01:50→09:18)
--- NOTE | 2016-12-13 06:36 | Orthopedic Progress Note ---
Orthopedic Progress Note Date of Service Dec 13, 2016. Subjective Post OP Day: 4 Reports: feeling well, pain controlled w PO medications, Denies: complaints, chest pain, SOB, nausea / vomiting, light headedness, calf pain Objective calves soft nontender, N/V intact, capillary refill less than 2 sec., dressing C /D/I, A&O x3, toes mobile Date Time Temp Pulse Resp B/P (MAP) Pulse Ox O2 Delivery O2 Flow Rate FiO2 12/12/16 23:30 Room Air 12/12/16 22:43 36.6 78 18 115/65 (82) 97 Room Air 12/12/16 20:52 97 Room Air 12/12/16 15:30 97 Room Air 12/12/16 14:55 36.5 68 20 125/77 (93) 97 Room Air 12/12/16 07:15 Room Air Laboratory Results 24 Hours: Test 12/13/16 04:44 Assessment & Plan Assessment: POD #4, Right knee I&D, poly exchange, patellar tendon repair. Plan: PT/ OT- TTWB w brace and walker DVT proph- ASA D/C planning- Home w HH when stable. Cultures with a negative growth. Cultures likely to produce no growth due to being on antibiotics previously. Patient to go home on Daptomycin for 6 weeks. Knee immobilizer for 6 weeks. Inhouse Planning Pain Management: Celebrex, PO Tylenol, Oxy IR DVT Prophylaxis: ASA Discharge Planning Discharge Planning: home with home health Therapy: Physical Therapy, Occupational Therapy
[2016-12-13] MEDS ORDERED: DAPT500I IV (06:39)
[2016-12-13] MEDS ORDERED: RXC5 PO (06:39)
[2016-12-13 07:45] LABS: HEMATOCRIT 31.2 % (37-47); MEAN CELL VOLUME 82.8 fL (80-100); MEAN CORPUSCULAR HEMOGLOBIN 27.1 pg (25-34); MEAN CORPUSCULAR HGB CONC 32.7 g/dl (32-36); PLATELET COUNT 205 K/uL (130-400); RED BLOOD COUNT 3.77 M/uL (4.2-5.4); WHITE BLOOD COUNT 5.75 K/uL (4.8-10.8)
[2016-12-13 08:13] LABS: BUN/CREATININE RATIO 15.2 (10-20); CALCIUM 9.1 mg/dl (8.5-10.1); CREATININE 0.86 mg/dl (0.60-1.20); POTASSIUM 3.8 mmol/L (3.5-5.1)
[2016-12-13] MEDS: CeleBREX 200 MG CAP PO SCH (09:16)
[2016-12-13] MEDS: OXYBUTYNIN CHLORIDE 5 MG TAB PO SCH (09:16)
[2016-12-13] MEDS: CALCIUM 600MG + VIT D 400 IU TAB PO SCH (09:16)
[2016-12-13] MEDS: DAPTOmycin IV 650 MG in SODIUM CHLORIDE 0.9% 50ML 50 ML IV SCH (09:16)
[2016-12-13] MEDS: PANTOprazole SOD 40 MG TAB PO SCH (09:17)
[2016-12-13] MEDS: PRAVASTATIN SOD 20 MG TAB PO SCH (09:17)
[2016-12-13] MEDS: ASPIRIN 81 MG ECTAB PO SCH (09:17)
[2016-12-13] MEDS: LISINOPRIL 10 MG TAB PO SCH (09:18)
[2016-12-13 09:53] VITALS: BP 115/65; PULSE 78; TEMP 36.6; O2SAT 97
[2016-12-14] MEDS ORDERED: VANCOMYCIN TROUGH ONE (13:30)
--- NOTE | 2016-12-15 10:59 | History and Physical: Surg Cnt ---
History & Physical Date of Service Dec 15, 2016. History & Physical Chief Complaint Right knee non-healing wound History of Present Illness The patient is a 66 year old female with complaints of right knee non-healing wound s/p Right TKA. She was recently admitted to the hospital for an I & D of her right tka 3 weeks after her TKA. The distal aspect of her incision was still open. She has tried wet to dry dressing and Xeroform to help prevent infection with no relief. Past Medical/Surgical History Medical Problems: (1) Right knee DJD Additional History Hepatic Disease: No Endocrine Disorder: No Kidney Disease: No Hypertension: Yes Heart Disease: No Bleeding Tendencies: No Infectious Diseases: No Allergies Coded Allergies: No Known Allergies (Verified , 10/18/16) Home Medications Scheduled Acetaminophen (Sb Non-Aspirin Extra Stre), 1,000 MG PO Q8 Calcium Carbonate-Vitamin D (Calcium + D), 1 TAB PO QAM Ceftriaxone Sod (Rocephin), 2 GM IV Q24H Celecoxib (CeleBREX), 200 MG PO BID Cholecalciferol (Vitamin D3), 5,000 UNITS PO QAM Enoxaparin (Enoxaparin Sodium), 40 MG SQ QAM Esomeprazole Magnesium (Nexium), 40 MG PO QAM Metoprolol Tartrate (Lopressor), 25 MG PO BID Oxybutynin Chloride (Ditropan), 5 MG PO QAM Pravastatin (Pravachol ), 40 MG PO QAM Warfarin Sod (Coumadin), 5 MG PO DAILY@16 Scheduled PRN Oxycodone HCl (Oxycodone HCl), 5-10 MG PO Q4H PRN for Pain Oxycodone Immediate Rel Tab (Roxicodone Ir), 1-2 TAB PO Q4H PRN for Severe Pain Physical Examination Skin: warm/dry, no rash Eyes: normal inspection, EOMI ENT: normal ENT inspection Head: normocephalic, atraumatic Neck: supple, no adenopathy Respiratory/Chest: lungs clear, normal breath sounds Cardiovascular: regular rate, rhythm, no murmur Abdomen / GI: normal bowel sounds, non tender Extremities: + pertinent finding (distal aspect of the incision is open. Fibers of the patella tendon are visable. Mild redness to the area. ) Neurologic/Psych: no motor/sensory deficits, alert, oriented x 3 Diagnosis Non-healing wound 3 weeks S/P I & D of Right TKA Plan of Treatment Patient is scheduled for an I & D of the right knee with possible poly exchange depending on findings at the time of surgery with possible wound vac placement. Patient has failed conservative therapies to help with wound closure. Risks and benefits to surgery were discussed with the patient and she wishes to proceed.
--- NOTE | 2016-12-15 11:03 | Discharge Summary ---
Orthopedic Discharge Summary Admission Date/Reason Dec 09, 2016 at 18:20 Right Knee Infection. Discharge Date/Disposition Dec 13, 2016 Home with services Diagnosis Principal Diagnosis: Right knee infection S/P Right TKA Medication Reconciliation as per discharge instructions Admission Physical Exam As per Admitting History & Physical. Hospital Course POD# 1 patient was doing well. Pain was well controlled. Dressing was clean, dry and intact. Cultures were pending at this time. POD# 2 patient was doing well. Pain was well controlled. Dressing was clean, dry and intact. Cultures were pending at this time, no evidence of growth just yet. This could be due to the fact she was already on antibiotics before her surgery. POD#3 patient was doing well. Pain was well controlled. Dressing was clean, dry and intact. Cultures had no growth. It was discussed that she would start Daptomycin as her antibiotic. POD#4 patient was discharged home with home health and on daptomycin for 6 weeks. Discharge Instructions Please refer to the electronic Patient Visit Report (Discharge Instructions) for additional information.
[2016-12-31] MEDS ORDERED: PRVC/40 PO (10:55)
== END 2016-12-13 11:46 | disposition home health service (06) | DRG 487 ==
LOC: C.ACU 13:59 → C.3E 18:20 → ENRESERV 21:05
PROVIDERS: ADMIT Orthopaedic Surgery; ATTEND Orthopaedic Surgery
PROC: 0SWC09Z Revision of Liner in Right Knee Joint, Open Approach (ICD-10-PCS; principal; 2016-12-09 09:30)
PROC: 0LQQ0ZZ Repair Right Knee Tendon, Open Approach (ICD-10-PCS; principal; 2016-12-09 09:30)
PROC: 0QBD0ZZ Excision of Right Patella, Open Approach (ICD-10-PCS; principal; 2016-12-09 09:30)
DX: T84.53XA Infection and inflammatory reaction due to internal right knee prosthesis, initial encounter (principal); M66.861 Spontaneous rupture of other tendons, right lower leg; I10 Essential (primary) hypertension; K21.9 Gastro-esophageal reflux disease without esophagitis; E66.9 Obesity, unspecified; F17.200 Nicotine dependence, unspecified, uncomplicated; Z68.39 Body mass index [BMI] 39.0-39.9, adult; Z79.82 Long term (current) use of aspirin; Z79.899 Other long term (current) drug therapy; Y79.2 Prosthetic and other implants, materials and accessory orthopedic devices associated with adverse incidents; Y83.1 Surgical operation with implant of artificial internal device as the cause of abnormal reaction of the patient, or of later complication, without mention of misadventure at the time of the procedure; Z01.812 Encounter for preprocedural laboratory examination; Z01.818 Encounter for other preprocedural examination

== ENCOUNTER → 2016-12-20 | Outpatient (CLI) | payer OTHER ==
[~2016-12-20] MED LIST changes: -CEFAZOLIN 1000MG IV PUSH 5 ML IV SCH; -CEFAZOLIN 2000MG IV PUSH 10 ML IV SCH; -CEFT1INJ57 INJ; +DAPT500I IV; -LACTATED RINGER'S 1000ML 1,000 ML IV SCH; -OXYC1TAB3 PO; +PRVC/40 PO; +RXC5 PO
[2016-12-20 15:44] LABS: BASO % 0.5 %; BASO ABS # 0.05 K/uL (0-0.2); COMPLETE YES; EOS % 2.4 %; HEMATOCRIT 34.2 % (37-47); IG% 0.2 %; LYMPH ABS # 2.16 K/uL (1.2-3.4); MEAN CELL VOLUME 81.8 fL (80-100); MEAN CORPUSCULAR HEMOGLOBIN 26.6 pg (25-34); MEAN CORPUSCULAR HGB CONC 32.5 g/dl (32-36); MEAN PLATELET VOLUME 10.5 fL (7.4-10.4); MONO % 8.9 %; PLATELET COUNT 292 K/uL (130-400); RED BLOOD COUNT 4.18 M/uL (4.2-5.4); WHITE BLOOD COUNT 9.82 K/uL (4.8-10.8)
[2016-12-20 15:47] LABS: ALT/SGPT 27 U/L (12-78); BLOOD UREA NITROGEN 16 mg/dl (7-18); BUN/CREATININE RATIO 17.1 (10-20); CALCIUM 9.2 mg/dl (8.5-10.1); CARBON DIOXIDE 25 mmol/L (21-32); CHLORIDE 103 mmol/L (98-107); CREATININE 0.93 mg/dl (0.60-1.20); GLUCOSE 94 mg/dl (70-99); POTASSIUM 3.7 mmol/L (3.5-5.1); SODIUM 137 mmol/L (136-145)
[2016-12-20 15:50] LABS: ALB/GLOB RATIO 0.8 (0.9-2); ALKALINE PHOSPHATASE 85 U/L (45-117); AST/SGOT 16 U/L (15-37)
--- NOTE | 2016-12-29 12:42 | CODING QUERY NO DIAGNOSIS ---
Valid Physician Order Needed A valid physician order must be submitted in order to properly bill for the service(s) provided, including date of service(s), valid diagnosis, and physician signature. If these tests are done on a recurring basis the original physician order must be submitted in order to code and bill for the service(s) provided. Please fax us the original, signed physician order so that we may expedite billing to [phone] DOS 12/20 * CMP, CBC, ESR Thank you Freya Reardon Health Information Management
== END | disposition home or self-care (01) ==
LOC: C.LABSPEC 15:26
PROVIDERS: ATTEND Orthopaedic Surgery
DX: Z01.89 Encounter for other specified special examinations (principal)

== ENCOUNTER → 2016-12-26 | Outpatient (CLI) | payer OTHER ==
[2016-12-26 15:34] LABS: BASO ABS # 0.06 K/uL (0-0.2); COMPLETE YES; EOS % 4.7 %; HEMATOCRIT 34.8 % (37-47); LYMPH % 31.5 %; LYMPH ABS # 1.94 K/uL (1.2-3.4); MEAN CELL VOLUME 81.1 fL (80-100); MEAN CORPUSCULAR HEMOGLOBIN 25.9 pg (25-34); MEAN CORPUSCULAR HGB CONC 31.9 g/dl (32-36); MEAN PLATELET VOLUME 10.7 fL (7.4-10.4); MONO % 7.6 %; NEUT % 55.2 %; PLATELET COUNT 316 K/uL (130-400); RED BLOOD COUNT 4.29 M/uL (4.2-5.4); WHITE BLOOD COUNT 6.16 K/uL (4.8-10.8)
[2016-12-26 15:43] LABS: ALT/SGPT 26 U/L (12-78); AST/SGOT 19 U/L (15-37); BLOOD UREA NITROGEN 18 mg/dl (7-18); BUN/CREATININE RATIO 18.8 (10-20); CARBON DIOXIDE 24 mmol/L (21-32); CHLORIDE 104 mmol/L (98-107); CREATININE 0.94 mg/dl (0.60-1.20); GLUCOSE 120 mg/dl (70-99); POTASSIUM 3.7 mmol/L (3.5-5.1); SODIUM 138 mmol/L (136-145)
[2016-12-26 15:46] LABS: ALB/GLOB RATIO 0.8 (0.9-2); ALKALINE PHOSPHATASE 91 U/L (45-117)
--- NOTE | 2017-01-20 07:04 | CODING QUERY NO DIAGNOSIS ---
TREATMENT RENDERED WITHOUT A DIAGNOSIS Please provide a copy of the physician order for the following services that were rendered on 12/26/16: COMPREHENSIVE METABOLIC PANEL CREATINE PHOSPHOKINASE CBC WITH AUTO DIFFERENTIAL ERYTHROCYTE SEDIMENTATION RATE Thank you Lizzy Coleman [facility] Information Management Once completed, please kindly fax back to [phone] For questions please call [phone]
== END | disposition home or self-care (01) ==
LOC: C.LABSPEC 15:23
PROVIDERS: ATTEND Orthopaedic Surgery
DX: T84.53XA Infection and inflammatory reaction due to internal right knee prosthesis, initial encounter (principal); M00.061 Staphylococcal arthritis, right knee; Y83.1 Surgical operation with implant of artificial internal device as the cause of abnormal reaction of the patient, or of later complication, without mention of misadventure at the time of the procedure; Y79.2 Prosthetic and other implants, materials and accessory orthopedic devices associated with adverse incidents

== ENCOUNTER → 2017-01-03 | Outpatient (CLI) | payer OTHER ==
[~2017-01-03] MED LIST changes: +ACET-24 PO; +CEFT1INJ57 INJ; +CEFT1INJ57 IV; +CHOL1000 PO; +CMD5 PO; +LPR25 PO; +LVNIS40 SQ; +OXYC1TAB3 PO; +[UNRECOGNIZED DRUG - OTHER] PO
[2017-01-03 15:42] LABS: BASO % 0.6 %; BASO ABS # 0.04 K/uL (0-0.2); COMPLETE YES; HEMATOCRIT 32.6 % (37-47); IG% 0.3 %; LYMPH % 31.6 %; LYMPH ABS # 2.27 K/uL (1.2-3.4); MEAN CELL VOLUME 79.7 fL (80-100); MEAN CORPUSCULAR HEMOGLOBIN 25.9 pg (25-34); MEAN CORPUSCULAR HGB CONC 32.5 g/dl (32-36); MEAN PLATELET VOLUME 10.2 fL (7.4-10.4); MONO % 7.6 %; NEUT % 52.9 %; PLATELET COUNT 304 K/uL (130-400); RED BLOOD COUNT 4.09 M/uL (4.2-5.4); WHITE BLOOD COUNT 7.19 K/uL (4.8-10.8)
[2017-01-03 15:53] LABS: ALT/SGPT 22 U/L (12-78); BLOOD UREA NITROGEN 19 mg/dl (7-18); BUN/CREATININE RATIO 21.5 (10-20); CALCIUM 9.2 mg/dl (8.5-10.1); CARBON DIOXIDE 25 mmol/L (21-32); CHLORIDE 101 mmol/L (98-107); GLUCOSE 115 mg/dl (70-99); POTASSIUM 4.1 mmol/L (3.5-5.1); SODIUM 136 mmol/L (136-145)
[2017-01-03 15:56] LABS: ALB/GLOB RATIO 0.8 (0.9-2); ALKALINE PHOSPHATASE 90 U/L (45-117); AST/SGOT 16 U/L (15-37)
== END | disposition home or self-care (01) ==
LOC: C.LABSPEC 15:24
PROVIDERS: ATTEND Internal Medicine Infectious Disease
DX: M00.9 Pyogenic arthritis, unspecified (principal)

== ENCOUNTER → 2017-01-10 | Outpatient (CLI) | payer OTHER ==
[~2017-01-10] MED LIST changes: -ACET-24 PO; -CEFT1INJ57 INJ; -CEFT1INJ57 IV; -CHOL1000 PO; -CMD5 PO; -LPR25 PO; -LVNIS40 SQ; -OXYC1TAB3 PO; -PRAV20TA PO; -[UNRECOGNIZED DRUG - OTHER] PO
[2017-01-10 17:00] LABS: MEAN CORPUSCULAR HGB CONC 32.3 g/dl (32-36)
[2017-01-10 17:08] LABS: ALT/SGPT 23 U/L (12-78); BLOOD UREA NITROGEN 16 mg/dl (7-18); BUN/CREATININE RATIO 17.8 (10-20); C-REACTIVE PROTEIN 0.68 mg/dl (0-0.29); CALCIUM 9.4 mg/dl (8.5-10.1); CARBON DIOXIDE 24 mmol/L (21-32); CHLORIDE 102 mmol/L (98-107); CREATININE 0.88 mg/dl (0.60-1.20); GLUCOSE 79 mg/dl (70-99); POTASSIUM 4.4 mmol/L (3.5-5.1); SODIUM 134 mmol/L (136-145)
[2017-01-10 17:11] LABS: ALB/GLOB RATIO 0.8 (0.9-2); ALKALINE PHOSPHATASE 94 U/L (45-117); AST/SGOT 20 U/L (15-37)
[2017-01-10 17:13] LABS: HEMATOCRIT 35.3 % (37-47); MEAN CELL VOLUME 79.7 fL (80-100); MEAN CORPUSCULAR HEMOGLOBIN 25.7 pg (25-34); PLATELET COUNT 297 K/uL (130-400); RED BLOOD COUNT 4.43 M/uL (4.2-5.4)
[2017-01-10 17:14] LABS: BASO ABS # 0.35 K/uL (0-0.2); BASOPHIL % 4.5 %; COMPLETE YES; EOSINOPHIL % 4.5 %; LYMPH ABS # 1.53 K/uL (1.2-3.4); LYMPHOCYTE % 19.6 %; MYELOCYTE % 1.8 %; NEUTROPHILS % 50.8 %; VARIANT LYM ABS # 1.12 K/uL; VARIANT LYMPHOCYTE % 14.3 %
== END | disposition home or self-care (01) ==
LOC: C.LABSPEC 16:39
PROVIDERS: ATTEND Orthopaedic Surgery
DX: M00.9 Pyogenic arthritis, unspecified (principal)

== ENCOUNTER → 2017-01-17 | Outpatient (CLI) | payer OTHER ==
[2017-01-17 17:37] LABS: MEAN CELL VOLUME 78.5 fL (80-100); MEAN CORPUSCULAR HEMOGLOBIN 25.6 pg (25-34); MEAN CORPUSCULAR HGB CONC 32.6 g/dl (32-36); MEAN PLATELET VOLUME 10.8 fL (7.4-10.4); PLATELET COUNT 273 K/uL (130-400); RED BLOOD COUNT 4.46 M/uL (4.2-5.4); WHITE BLOOD COUNT 5.95 K/uL (4.8-10.8)
[2017-01-17 17:39] LABS: BASO % 1.7 %; COMPLETE YES; EOS % 9.1 %; IG% 0.2 %; LYMPH % 30.1 %; LYMPH ABS # 1.79 K/uL (1.2-3.4); MONO % 8.4 %; NEUT % 50.5 %
== END | disposition home or self-care (01) ==
LOC: C.LABSPEC 16:26
PROVIDERS: ATTEND Internal Medicine Infectious Disease
DX: L08.9 Local infection of the skin and subcutaneous tissue, unspecified (principal)